=== PATIENT | female | born 1960 | race Caucasian/White ===

== ENCOUNTER 2020-02-04 14:19 | Emergency (ER) | payer BC ==
[2020-02-04] MEDS ORDERED: Sodium Chloride 0.9% 10 ML Syringe FLUSH PRN (14:57)
[2020-02-04] MEDS ORDERED: Albuterol/Ipratropium 3.0-0.5 MG/3 ML Neb Soln NEB ONE (14:58)
[2020-02-04] MEDS ORDERED: Sodium Chloride 0.9% 10 ML Syringe FLUSH ONE (15:05)
[2020-02-04] MEDS ORDERED: Iopamidol 755 Mg/ML 100 ML Bottle IVPUSH ONE (15:05)
[2020-02-04] MEDS ORDERED: Sodium Chloride 0.9% 100 ML IV SCH (15:15)
[2020-02-04] MEDS ORDERED: Sodium Chloride 0.9% 500 ML IV ONE (16:11)
[2020-02-04] MEDS ORDERED: LORazepam 2 MG/ML SDV IVPUSH ONE (16:12)
--- NOTE | 2020-02-04 17:06 | EDM.PDOC ---
ED HPI GENERAL MEDICAL PROBLEM - General Chief Complaint: ENT Problem Stated Complaint: DYSPHAGIA Time Seen by Provider: 02/04/20 14:45 Source of Information: Reports: Patient, Old Records History Limitations: Reports: No Limitations - History of Present Illness INITIAL COMMENTS - FREE TEXT/NARRATIVE: The patient presents for sore throat. She has a history of COPD on oxygen. She has congestion and post nasal drip with sinus pressure. She took a pill when she was coughing and it felt like it got stuck. She has a sore throat after that and chest pain and shortness of breath. She also is coughing. She has no fever or chills. She has anemia and she gets iron transfusions. She did come back from [place] 10 days ago and she was quarantining herself. She did get checked on the and she found out that she was COVID 19 negative. Onset: Gradual Duration: Day(s): Location: Reports: Chest, Other (throat) Quality: Reports: Sharp Severity: Moderate Improves with: Reports: None Worsens with: Reports: None Associated Symptoms: Reports: Chest Pain, Cough, Shortness of Breath. Denies: Fever/Chills, Headaches, Nausea/Vomiting Middle Chest Pain Score (Numeric/FACES): 10 - Related Data Allergies Allergy/AdvReac Type Severity Reaction Status Date / Time aspirin Allergy Cannot Verified 02/04/20 15:45 Remember codeine Allergy Change Verified 02/04/20 15:45 Mental Status latex Allergy Swelling Verified 02/04/20 15:45 levofloxacin [From Levaquin] Allergy Cannot Verified 02/04/20 15:45 Remember Penicillins Allergy Cannot Verified 02/04/20 15:45 Remember warfarin [From Coumadin] Allergy Hives Verified 02/04/20 15:45 Home Meds: Home Meds Albuterol Sulfate [Proair Digihaler] 90 mcg INH Q4HR PRN 02/04/20 [History] Ascorbate Calcium [Vitamin C] 500 mg PO TID 02/04/20 [History] Benzonatate 200 mg PO TID 02/04/20 [History] Budesonide [Pulmicort] 0.25 mg INH BID 02/04/20 [History] Cholecalciferol (Vitamin D3) [Vitamin D3] 5,000 units PO WEEKLY 02/04/20 [ History] Clopidogrel [Plavix] 75 mg PO DAILY 02/04/20 [History] Clorazepate [Clorazepate Dipotassium] 3.75 mg PO BID 02/04/20 [History] Docusate Sodium [Colace] 200 mg PO DAILY 02/04/20 [History] Doxycycline [Vibramycin] 100 mg PO BID #14 cap 02/04/20 [Rx] Dulaglutide [Trulicity] 1.5 mg SQ WEEKLY 02/04/20 [History] Ferrous Sulfate [Iron] 325 mg PO TID 02/04/20 [History] Fluticasone/Umeclidin/Vilanter [Trelegy Ellipta 100-62.5-25] 1 mcg INH DAILY 04/19 [History] Insulin Aspart [NovoLOG] 0 units SQ TID 02/04/20 [History] Insulin Glargine,Hum.Rec.Anlog [Toujeo Solostar] 0 units SQ BEDTIME 02/04/20 [ History] Montelukast [Singulair] 10 mg PO BEDTIME 02/04/20 [History] Cassatt-3/DHA/Epa/Fish Oil [Cassatt 3 500 Softgel] 1 gm PO DAILY 02/04/20 [History] Roflumilast [Daliresp] 500 mcg PO DAILY 02/04/20 [History] guaiFENesin [Mucinex] 600 mg PO BID 02/04/20 [History] metFORMIN [Glucophage XR] 500 mg PO BID 02/04/20 [History] predniSONE [Prednisone] 40 mg PO DAILY #10 tablet 02/04/20 [Rx] Past Medical History HEENT History: Reports: Impaired Vision Other HEENT History: jerry jerome Cardiovascular History: Reports: Blood Clots/VTE/DVT, High Cholesterol Respiratory History: Reports: Asthma, COPD, Pneumonia, Recurrent, SOB Gastrointestinal History: Reports: Colon Polyp, Other (See Below) Other Gastrointestinal History: blood in stool unsure of where bleeding is coming from. 16 polyps removed from colon Genitourinary History: Reports: Renal Calculus, UTI, Recurrent, Other (See Below ) Other Genitourinary History: Stent placed [employer] History: Reports: Psychiatric History: Reports: Anxiety Endocrine/Metabolic History: Reports: Diabetes, Type II, Vitamin D Deficiency Hematologic History: Reports: Iron Deficiency - Past Surgical History GI Surgical History: Reports: Polypectomy Female Surgical History: Reports: Hysterectomy, Ureteral Stent Social & Family History - Tobacco Use Smoking Status *Q: Former Smoker Used Tobacco, but Quit: Yes Month/Year Tobacco Last Used: 2004 - Caffeine Use Caffeine Use: Reports: Tea - Recreational Drug Use Recreational Drug Use: No ED ROS ENT - Review of Systems Review Of Systems: See Below Constitutional: Reports: No Symptoms HEENT: Reports: No Symptoms Respiratory: Reports: Shortness of Breath, Cough Cardiovascular: Reports: Chest Pain Endocrine: Reports: No Symptoms GI/Abdominal: Reports: No Symptoms : Reports: No Symptoms Musculoskeletal: Reports: No Symptoms Skin: Reports: No Symptoms ED EXAM, ENT - Physical Exam Exam: See Below Exam Limited By: No Limitations General Appearance: Alert, No Apparent Distress Ears: Normal External Exam Nose: Normal Inspection Mouth/Throat: Other (Mild erythema of the oropharynx) Head: Atraumatic, Normocephalic Neck: Normal Inspection Respiratory/Chest: No Respiratory Distress, Decreased Breath Sounds, Wheezing Cardiovascular: Regular Rate, Rhythm, No Edema, No Murmur GI/Abdominal: Soft, Non-Tender, No Organomegaly, No Mass Back: Normal Inspection Extremities: Normal Inspection EKG INTERPRETATION EKG Date: 02/04/20 Time: 15:35 Rhythm: Other (sinus tachycardia) Rate (Beats/Min): 143 [place]: Normal P-Wave: Present QRS: Normal ST-T: Depressed (ST rate dependent) QT: Normal Course - Vital Signs Last Recorded V/S: Last Vital Signs Temp 96.8 F L 02/04/20 14:51 Pulse 127 H 02/04/20 14:51 Resp 24 H 02/04/20 14:51 BP 162/79 H 02/04/20 14:51 Pulse Ox 92 L 02/04/20 14:58 - Orders/Labs/Meds Orders: Active Orders 24 hr Category Date Time Status Cardiac Monitoring [RC] . DIRECTED Care 02/04/20 14:57 Active EKG Documentation Completion [RC] STAT Care 02/04/20 14:57 Active Oxygen Therapy [RC] PRN Care 02/04/20 14:57 Active Peripheral IV Care [RC] . DIRECTED Care 02/04/20 14:57 Active RT Aerosol Therapy [RC] ASDIRECTED Care 02/04/20 14:58 Active Ang Chest [CT] Stat Exams 02/04/20 15:31 Taken Sodium Chloride 0.9% [Normal Saline] 100 ml Med 02/04/20 15:15 Active IV ASDIRECTED Sodium Chloride 0.9% [Saline Flush] Med 02/04/20 14:57 Active 10 ml FLUSH ASDIRECTED PRN Peripheral IV Insertion Adult [OM.PC] Stat Oth 02/04/20 14:57 Ordered Medication Orders Sodium Chloride (Normal Saline) 100 mls @ 60 mls/hr IV ASDIRECTED CHAGO Last Admin: 02/04/20 16:52 Dose: 60 mls/hr Sodium Chloride (Saline Flush) 10 ml FLUSH ASDIRECTED PRN PRN Reason: Keep Vein Open Labs: Laboratory Tests 02/04/20 02/04/20 Range/Units 15:40 15:40 WBC 11.03 H (3.98-10.04) K/mm3 RBC 5.20 (3.98-5.22) M/mm3 Hgb 12.9 (11.2-15.7) gm/dl Hct 41.1 (34.1-44.9) % MCV 79.0 L (79.4-94.8) fl MCH 24.8 L (25.6-32.2) pg MCHC 31.4 L (32.2-35.5) g/dl RDW Std Deviation 49.8 H (36.4-46.3) fL Plt Count 266 (182-369) K/mm3 MPV 10.0 (9.4-12.3) fl Neut % (Auto) 66.4 (34.0-71.1) % Lymph % (Auto) 26.4 (19.3-51.7) % [place] % (Auto) 5.6 (4.7-12.5) % Eos % (Auto) 0.8 (0.7-5.8) Baso % (Auto) 0.1 (0.1-1.2) % Neut # (Auto) 7.32 H (1.56-6.13) K/mm3 Lymph # (Auto) 2.91 (1.18-3.74) K/mm3 [place] # (Auto) 0.62 H (0.24-0.36) K/mm3 Eos # (Auto) 0.09 (0.04-0.36) K/mm3 Baso # (Auto) 0.01 (0.01-0.08) K/mm3 Manual Slide Review Normal smear Sodium 144 (136-145) mEq/L Potassium 4.2 (3.5-5.1) mEq/L Chloride 105 (98-107) mEq/L Carbon Dioxide 29 (21-32) mEq/L Anion Gap 14.2 (5-15) BUN 11 (7-18) mg/dL Creatinine 0.8 (0.55-1.02) mg/dL Est Cr Clr Drug Dosing 58.41 mL/min Estimated GFR (MDRD) > 60 (>60) mL/min BUN/Creatinine Ratio 13.8 L (14-18) Glucose 77 L (80-115) mg/dL Calcium 10.3 H (8.5-10.1) mg/dL Total Bilirubin 0.6 (0.2-1.0) mg/dL AST 21 (15-37) U/L ALT 36 (14-59) U/L Alkaline Phosphatase 126 H (46-116) U/L Troponin I < 0.017 (0.00-0.056) ng/mL Total Protein 8.4 H (6.4-8.2) g/dl Albumin 4.2 (3.4-5.0) g/dl Globulin 4.2 gm/dL Albumin/Globulin Ratio 1.0 (1-2) Meds: Medications Generic Name Dose Route Start Last Admin Trade Name Freq PRN Reason Stop Dose Admin Sodium Chloride 100 mls @ 60 mls/hr 02/04/20 15:15 02/04/20 16:52 Normal Saline IV 60 mls/hr ASDIRECTED CHAGO Administration Sodium Chloride 10 ml 02/04/20 14:57 Saline Flush FLUSH ASDIRECTED PRN Keep Vein Open Discontinued Medications Generic Name Dose Route Start Last Admin Trade Name Freq PRN Reason Stop Dose Admin Albuterol/Ipratropium 3 ml 02/04/20 14:58 02/04/20 15:48 Duoneb 3.0-0.5 Mg/3 Ml NEB 02/04/20 14:59 3 ml ONETIME ONE Administration Sodium Chloride 500 mls @ 1,000 mls/hr 02/04/20 16:11 02/04/20 16:40 Normal Saline IV 02/04/20 16:40 1,000 mls/hr .BOLUS ONE Administration Iopamidol 100 ml 02/04/20 15:05 02/04/20 16:52 Isovue-370 (76%) IVPUSH 02/04/20 15:06 100 ml ONETIME ONE Administration Lorazepam 0.5 mg 02/04/20 16:12 02/04/20 16:38 Ativan IVPUSH 02/04/20 16:13 0.5 mg ONETIME ONE Administration Sodium Chloride 10 ml 02/04/20 15:05 02/04/20 16:52 Saline Flush FLUSH 02/04/20 15:06 10 ml ONETIME ONE Administration - Re-Assessments/Exams Free Text/Narrative Re-Assessment/Exam: 02/04/20 17:09 I ordered oxygen, IV NS 500ml bolus, albuterol 2 puffs, EKG, labs and a CT of her chest. Her EKG shows a sinus tachycardia with no acute changes. 02/04/20 17:41 Her WBC was slightly elevated at 11.03. Her glucose was 77. Her alk phos was 126. Her troponin is negative. Her CT of her chest shows no acute or active chest CT pathology. No pulmonary emboli. Mild centrilobar emphysema. Mild chronic interstitial lung disease, nonspecific. Left ventricular hypertrophy. Nonspecific pericardial thickening. 02/04/20 17:53 She has sinusitis and COPD exacerbation. I will get her on some doxycycline and prednisone. Departure - Departure Time of Disposition: 18:00 Disposition: Home, Self-Care 01 Condition: Good Clinical Impression: COPD exacerbation Sinusitis Qualifiers: Sinusitis location: unspecified location Chronicity: acute Recurrence: non- recurrent Qualified Code(s): J01.90 - Acute sinusitis, unspecified - Discharge Information *PRESCRIPTION DRUG MONITORING PROGRAM REVIEWED*: Not Applicable *COPY OF PRESCRIPTION DRUG MONITORING REPORT IN PATIENT CELY: Not Applicable Prescriptions: Doxycycline [Vibramycin] 100 mg PO BID #14 cap predniSONE [Prednisone] 40 mg PO DAILY #10 tablet Referrals: Silvia Feliciano NP [Primary Care Provider] - 3 Days Forms: ED Department Discharge Additional Instructions: Take your medications as prescribed. Take doxycycline 1 pill 2 times per day for 7 days. Take the prednisone 40mg daily for 5 days. Follow up with Silvia in 2 to 3 days. Please return if you are worse. Sepsis Event Note - Evaluation Sepsis Screening Result: No Definite Risk - Focused Exam Vital Signs: Vital Signs Temp Pulse Resp BP Pulse Ox Pulse Ox 02/04/20 14:58 92 L 02/04/20 14:51 96.8 F L 127 H 24 H 162/79 H 94 L Date Exam was Performed: 02/04/20 Time Exam was Performed: 17:53 - My Orders Last 24 Hours: My Active Orders 02/04/20 14:57 Cardiac Monitoring [RC] . DIRECTED EKG Documentation Completion [RC] STAT Oxygen Therapy [RC] PRN Peripheral IV Care [RC] . DIRECTED Sodium Chloride 0.9% [Saline Flush] 10 ml FLUSH ASDIRECTED PRN Peripheral IV Insertion Adult [OM.PC] Stat 02/04/20 14:58 RT Aerosol Therapy [RC] ASDIRECTED 02/04/20 15:15 Sodium Chloride 0.9% [Normal Saline] 100 ml IV ASDIRECTED 02/04/20 15:31 Ang Chest [CT] Stat - Assessment/Plan Last 24 Hours: My Active Orders 02/04/20 14:57 Cardiac Monitoring [RC] . DIRECTED EKG Documentation Completion [RC] STAT Oxygen Therapy [RC] PRN Peripheral IV Care [RC] . DIRECTED Sodium Chloride 0.9% [Saline Flush] 10 ml FLUSH ASDIRECTED PRN Peripheral IV Insertion Adult [OM.PC] Stat 02/04/20 14:58 RT Aerosol Therapy [RC] ASDIRECTED 02/04/20 15:15 Sodium Chloride 0.9% [Normal Saline] 100 ml IV ASDIRECTED 02/04/20 15:31 Ang Chest [CT] Stat
[2020-02-04] MEDS ORDERED: Doxycycline 100 MG Cap PO ONE (17:57)
[2020-02-04] MEDS ORDERED: predniSONE 20 MG Tab PO ONE (17:57)
--- NOTE | 2020-02-05 08:36 | CT ---
CT chest Technique: Multiple axial sections were obtained from above the dome of the diaphragm inferiorly through the pubic symphysis. Intravenous contrast was utilized. Study has been performed as a pulmonary angiogram protocol. Findings: Pulmonary arteries are well opacified. No filling defects are seen to indicate pulmonary embolism. Aorta shows atherosclerotic change without aneurysm. Small lymph nodes are scattered within the mediastinum believed to be within normal limits. No axillary adenopathy is identified. Calcified lymph node is noted within the right hilar region. Lungs show no acute parenchymal change. Mild diffuse emphysematous changes are present. Focal parenchymal density within the lingula is noted most likely representing an area of scarring. Bone window settings were reviewed which shows slight degenerative spurring within the spine. No acute osseous finding is seen. Impression: 1. No findings of pulmonary embolism. 2. Emphysematous change. 3. Focal scar within the lingula. Diagnostic code #3 This report was dictated in MDT I agree with preliminary report from [facility], finalized on 02/04/20, 6:09 PM Central Time
== END 2020-02-04 18:30 | disposition home or self-care (01) ==
LOC: JD.ED 14:19
DX: J44.1 Chronic obstructive pulmonary disease with (acute) exacerbation (principal); J01.90 Acute sinusitis, unspecified; E78.00 Pure hypercholesterolemia, unspecified; J45.909 Unspecified asthma, uncomplicated; E11.9 Type 2 diabetes mellitus without complications; F41.9 Anxiety disorder, unspecified; Z79.02 Long term (current) use of antithrombotics/antiplatelets; Z79.4 Long term (current) use of insulin; Z79.899 Other long term (current) drug therapy; Z91.040 Latex allergy status; Z88.5 Allergy status to narcotic agent; Z88.0 Allergy status to penicillin; Z88.8 Allergy status to other drugs, medicaments and biological substances; Z87.891 Personal history of nicotine dependence
CPT/HCPCS: 36415; 71275; 80053; 84484; 85025; 93005; 94640; 94762; 96361; 96374; 99284; A9270; J2060; J7030; J7050; Q9967; 93010; J7620-GY

== ENCOUNTER 2021-10-22 06:28 | Inpatient (IN) | payer BC ==
[2021-10-22] MEDS ORDERED: Albuterol/Ipratropium 3.0-0.5 MG/3 ML Neb Soln NEB ONE (06:45)
[2021-10-22] MEDS ORDERED: Sodium Chloride 0.9% 10 ML Syringe FLUSH PRN ×2 (06:45→08:23)
[2021-10-22] MEDS ORDERED: Magnesium Sulfate/Water 2 GM in Premix Bag 1 BAG IV ONE (07:08)
[2021-10-22] MEDS ORDERED: methylPREDNISolone Sodium Succinate 125 MG/2 ML SDV IVPUSH ONE (07:08)
[2021-10-22] MEDS ORDERED: Albuterol 0.083% 2.5 MG/3 ML Neb Soln ONE (07:13)
[2021-10-22] MEDS ORDERED: Levofloxacin/Dextrose 5%-Water 750 MG in Premix Bag 1 BAG IV ONE (07:13)
[2021-10-22] MEDS ORDERED: Sodium Chloride 0.9% 500 ML IV ONE (07:14)
--- NOTE | 2021-10-22 07:18 | EDM.PDOC ---
ED HPI GENERAL MEDICAL PROBLEM - General Chief Complaint: Respiratory Problem Stated Complaint: sob Time Seen by Provider: 10/22/21 07:05 Source of Information: Reports: Patient, Family History Limitations: Reports: No Limitations - History of Present Illness INITIAL COMMENTS - FREE TEXT/NARRATIVE: Patient is a 61-year-old female with a complaint of not being able to breathe. Patient has a past medical history of COPD and is on home oxygen for the past 14 years. Patient is present with who provides majority of history. According to the , patient had similar symptoms about 4 months ago and was treated as an outpatient with steroids. She did seem to respond to this. However, on Tuesday the patient started to become sick again. Demonstrating significant dyspnea and cough. Patient went to the doctor on Tuesday and was prescribed prednisone. However, patient continued to worsen and she came in this morning with significant respiratory distress. She otherwise denies pain and fevers. No recent hospitalizations. Albuterol inhalers seem to provide only moderate relief. Back Pain Score (Numeric/FACES): 9 - Related Data Allergies Allergy/AdvReac Type Severity Reaction Status Date / Time aspirin Allergy Severe Cannot Verified 10/22/21 17:24 Remember codeine Allergy Severe Change Verified 10/22/21 17:24 Mental Status latex Allergy Severe Swelling Verified 10/22/21 17:24 levofloxacin [From Levaquin] Allergy Severe Cannot Verified 10/22/21 17:24 Remember Penicillins Allergy Severe Cannot Verified 10/22/21 17:24 Remember warfarin [From Coumadin] Allergy Severe Hives Verified 10/22/21 17:24 Home Meds: Home Meds Albuterol Sulfate [Proair Digihaler] 90 mcg INH Q4HR PRN 02/04/20 [History] Ascorbate Calcium [Vitamin C] 500 mg PO TID 02/04/20 [History] Budesonide [Pulmicort] 1 dose INH TID 02/04/20 [History] Clopidogrel [Plavix] 75 mg PO DAILY 02/04/20 [History] Clorazepate [Clorazepate Dipotassium] 3.75 mg PO BID 02/04/20 [History] Docusate Sodium [Colace] 200 mg PO DAILY 02/04/20 [History] Dulaglutide [Trulicity] 1.5 mg SQ WEEKLY 02/04/20 [History] Ferrous Sulfate [Iron] 325 mg PO TID 02/04/20 [History] Fluticasone/Umeclidin/Vilanter [Trelegy Ellipta 100-62.5-25] 1 puff INH DAILY 02/04/20 [History] Insulin Aspart [NovoLOG] 14 - 22 units SQ TID 02/04/20 [History] Insulin Glargine,Hum.Rec.Anlog [Toujeo Solostar] 90 units SQ BEDTIME 02/04/20 [History] Montelukast [Singulair] 10 mg PO BEDTIME 02/04/20 [History] [place]-3/DHA/Epa/Fish Oil [[place] 3 500 Softgel] 1 gm PO DAILY 02/04/20 [History] Roflumilast [Daliresp] 500 mcg PO DAILY 02/04/20 [History] guaiFENesin [Mucinex] 600 mg PO BID 02/04/20 [History] metFORMIN [Glucophage XR] 500 mg PO BID 02/04/20 [History] predniSONE [Prednisone] 40 mg PO DAILY #10 tablet 02/04/20 [Rx] ALPRAZolam [Alprazolam] 0.5 mg PO DAILY PRN 10/22/21 [History] Albuterol/Ipratropium [DuoNeb 3.0-0.5 MG/3 ML] 31 unit INH Q8H 10/22/21 [History] Cetirizine HCl [Zyrtec] 10 mg PO DAILY 10/22/21 [History] Famotidine 20 mg PO BID 10/22/21 [History] Furosemide [Lasix] 20 mg PO DAILY 10/22/21 [History] Potassium Chloride [Klor-Con 10] 10 meq PO DAILY 10/22/21 [History] Vitamin D3-50. 50,000 units PO ASDIRECTED 10/22/21 [History] atorvaSTATin [Lipitor] 40 mg PO BEDTIME 10/22/21 [History] Past Medical History HEENT History: Reports: Impaired Vision Other HEENT History: jerry jerome Cardiovascular History: Reports: Blood Clots/VTE/DVT, High Cholesterol Respiratory History: Reports: Asthma, COPD, Pneumonia, Recurrent, SOB Gastrointestinal History: Reports: Colon Polyp, Other (See Below) Other Gastrointestinal History: blood in stool unsure of where bleeding is coming from. 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 seeing MD for it. - Past Surgical History GI Surgical History: Reports: Polypectomy Female Surgical History: Reports: Hysterectomy, Ureteral Stent Social & Family History - Tobacco Use Tobacco Use Status *Q: Former Tobacco User Used Tobacco, but Quit: Yes Month/Year Tobacco Last Used: 1999 - Caffeine Use Caffeine Use: Reports: Tea - Recreational Drug Use Recreational Drug Use: No ED ROS GENERAL - Review of Systems Review Of Systems: Unable To Obtain Reason Not Obtained: Respiratory distress ED EXAM, GENERAL - Physical Exam Exam: See Below Free Text/Narrative:: I have reviewed the triage vital signs Const: Patient is in respiratory distress. Unable to sit still looks extremely uncomfortable. But is awake and talking. Well nourished, well developed, appears stated age Eyes: Pupils Equal and reactive to light bilaterally, no conjunctival injection HENT: No signs of trauma or swelling, Neck supple without meningismus CV: Tachycardia with regular rhythm., Warm, well-perfused extremities RESP: Diffuse bilateral wheezing. Patient using accessory muscles to breathe. Able to speak in short several word sentences. GI: soft, non-tender, non-distended, no masses MSK: No gross deformities appreciated Skin: Warm, dry. No rashes Neuro: Alert, photo retoucher II-XII grossly intact. Sensation and motor function of extremities grossly intact. Psych: Apparently anxious. Course - Vital Signs Last Recorded V/S: Last Vital Signs Temp 35.9 C L 10/22/21 17:39 Pulse 113 H 10/22/21 17:39 Resp 22 H 10/22/21 17:39 BP 141/65 H 10/22/21 17:39 Pulse Ox 95 10/22/21 17:39 - Orders/Labs/Meds Orders: Active Orders 24 hr Category Date Time Status Patient Status [ADT] Routine ADT 10/22/21 13:34 Active BIPAP Adult [RT BiPAP/CPAP] [RC] ASDIRECTED Care 10/22/21 07:10 Active Blood Glucose Check, Bedside [RC] QIDACANDBED Care 10/22/21 14:04 Active Cardiac Monitoring [RC] CONTINUOUS Care 10/22/21 13:48 Active Height and Weight [RC] 0400 Care 10/22/21 13:47 Active Intake and Output [RC] 04,16 Care 10/22/21 13:48 Active Oxygen Therapy [RC] ASDIRECTED Care 10/22/21 13:47 Active Peripheral IV Care [RC] . DIRECTED Care 10/22/21 06:50 Active Pulse Oximetry [RC] CONTINUOUS Care 10/22/21 13:48 Active RT Aerosol Therapy [RC] ASDIRECTED Care 10/22/21 13:55 Active RT Chest Physiotherapy [RC] ASDIRECTED Care 10/22/21 13:47 Active RT Incentive Spirometry [RC] ASDIRECTED Care 10/22/21 13:47 Active Up With Assistance [RC] ASDIRECTED Care 10/22/21 13:47 Active Vital Signs [RC] Q4H Care 10/22/21 13:47 Active Consult to Case Management/Bearing Ring Assembler [CONS] Cons 10/22/21 13:47 Active Routine OT Evaluation and Treatment [CONS] Routine Cons 10/22/21 13:50 Active PT Evaluation and Treatment [CONS] Routine Cons 10/22/21 13:50 Active Respiratory Care Assess and Treatment [CONS] Routine Cons 10/22/21 13:50 Active Consistent Carbohydrate Diet [DIET] Diet 10/22/21 Lunch Active BLOOD CULTURE [MREF] Stat Lab 10/22/21 07:15 Received BLOOD CULTURE [MREF] Stat Lab 10/22/21 07:20 Received C-REACTIVE PROTEIN [CHEM] AM Lab 10/23/21 05:11 Ordered C-REACTIVE PROTEIN [CHEM] AM Lab 10/24/21 05:11 Ordered C-REACTIVE PROTEIN [CHEM] AM Lab 10/25/21 05:11 Ordered C-REACTIVE PROTEIN [CHEM] AM Lab 10/26/21 05:11 Ordered CBC WITH AUTO DIFF [HEME] AM Lab 10/23/21 05:11 Ordered CBC WITH AUTO DIFF [HEME] AM Lab 10/24/21 05:11 Ordered CBC WITH AUTO DIFF [HEME] AM Lab 10/25/21 05:11 Ordered CBC WITH AUTO DIFF [HEME] AM Lab 10/26/21 05:11 Ordered COMPREHENSIVE METABOLIC PN,CMP [CHEM] AM Lab 10/23/21 05:11 Ordered COMPREHENSIVE METABOLIC PN,CMP [CHEM] AM Lab 10/24/21 05:11 Ordered COMPREHENSIVE METABOLIC PN,CMP [CHEM] AM Lab 10/25/21 05:11 Ordered COMPREHENSIVE METABOLIC PN,CMP [CHEM] AM Lab 10/26/21 05:11 Ordered MAGNESIUM [CHEM] AM Lab 10/23/21 05:11 Ordered MAGNESIUM [CHEM] AM Lab 10/24/21 05:11 Ordered MAGNESIUM [CHEM] AM Lab 10/25/21 05:11 Ordered MAGNESIUM [CHEM] AM Lab 10/26/21 05:11 Ordered METH-RESIST S.AUR,MRSA BY PCR [MOLEC] Routine Lab 10/22/21 16:50 Received PROCALCITONIN [REF] Routine Lab 10/22/21 07:20 Received RESPIRATORY PANEL Routine Lab 10/22/21 13:44 Ordered STREP PNEUMONIAE ANTIGEN [MREF] Routine Lab 10/22/21 13:46 Ordered UA W/MICROSCOPIC [URIN] Routine Lab 10/22/21 14:44 Ordered Acetaminophen [TylenoL] Med 10/22/21 13:47 Active 650 mg PO Q4H PRN Albuterol [Proventil Neb Soln] Med 10/22/21 13:47 Active 2.5 mg NEB Q2H PRN Albuterol/Ipratropium [DuoNeb 3.0-0.5 MG/3 ML] Med 10/22/21 16:00 Active 3 ml NEB QIDRT Ascorbic Acid [Vitamin C] Med 10/22/21 15:00 Active 500 mg PO TID Azithromycin [Zithromax] 500 mg Med 10/23/21 09:30 Active Sodium Chloride 0.9% [Normal Saline AdvBag] 250 ml IV Q24H Budesonide [Pulmicort] Med 10/22/21 16:00 Active 0.5 mg INH TID@0600,1600,2100 Cetirizine [ZyrTEC] Med 10/23/21 09:00 Active 10 mg PO DAILY Clopidogrel [Plavix] Med 10/23/21 09:00 Active 75 mg PO DAILY Docusate Sodium [Colace] Med 10/23/21 09:00 Active 200 mg PO DAILY Famotidine [Pepcid] Med 10/22/21 21:00 Pending 20 mg PO BID Ferrous Sulfate Med 10/22/21 15:00 Active 324 mg PO TID Furosemide [Lasix] Med 10/23/21 09:00 Active 20 mg PO DAILY Insulin Lispro [HumaLOG] Med 10/22/21 17:30 Active See Protocol SUBCUT WITHMEALSANDBED Magnesium Hydroxide [Milk of Magnesia] Med 10/22/21 14:45 Active 30 ml PO Q12H PRN Montelukast [Singulair] Med 10/22/21 21:00 Active 10 mg PO BEDTIME Ondansetron [Zofran] Med 10/22/21 13:47 Active 4 mg IV Q6H PRN Patient's Own Medication [Ptom] Med 10/23/21 10:00 Active 0 each INH 1000 Patient's Own Medication [Ptom] Med 10/22/21 21:00 Active 0 each PO BID Patient's Own Medication [Ptom] Med 10/23/21 09:00 Active 0 each PO DAILY Potassium Chloride [Klor-Con 10] Med 10/23/21 09:00 Active 10 meq PO DAILY Sodium Chloride 0.9% [Normal Saline] 100 ml Med 10/22/21 08:30 Active IV ASDIRECTED Sodium Chloride 0.9% [Saline Flush] Med 10/22/21 06:45 Active 10 ml FLUSH ASDIRECTED PRN Sodium Chloride 0.9% [Saline Flush] Med 10/22/21 08:23 Active 10 ml FLUSH ONETIME PRN atorvaSTATin [Lipitor] Med 10/22/21 21:00 Active 40 mg PO BEDTIME cefTRIAXone [Rocephin] 2 gm Med 10/23/21 09:00 Active Sodium Chloride 0.9% [Normal Saline AdvBag] 100 ml IV Q24H guaiFENesin [Mucinex] Med 10/22/21 21:00 Active 600 mg PO BID methylPREDNISolone Sod Succ [Solu-MEDROL] Med 10/23/21 09:00 Active 60 mg IVPUSH DAILY Blood Culture x2 Reflex Set [OM.PC] Stat Oth 10/22/21 06:49 Ordered Isolation [COMM] Routine Oth 10/22/21 13:45 Ordered Peripheral IV Insertion Adult [OM.PC] Stat Oth 10/22/21 06:50 Ordered Medication Orders Acetaminophen (Acetaminophen 325 Mg Tab) 650 mg PO Q4H PRN PRN Reason: Pain (Mild 1-3)/fever Albuterol (Albuterol 0.083% 2.5 Mg/3 Ml Neb Soln) 2.5 mg NEB Q2H PRN PRN Reason: Shortness Of Breath/wheezing Albuterol/Ipratropium (Albuterol/Ipratropium 3.0-0.5 Mg/3 Ml Neb Soln) 3 ml NEB QIDRT [facility] Last Admin: 10/22/21 15:30 Dose: 3 ml Documented by: PRAULES Ascorbic Acid (Ascorbic Acid 500 Mg Tab) 500 mg PO TID [facility] Atorvastatin Calcium (Atorvastatin 40 Mg Tab) 40 mg PO BEDTIME [facility] Budesonide (Budesonide 0.5 Mg/2 Ml Neb Susp) 0.5 mg INH TID@0600,1600,2100 [facility] Last Admin: 10/22/21 15:31 Dose: 0.5 mg Documented by: PRAULES Cetirizine HCl (Cetirizine 10 Mg Tab) 10 mg PO DAILY [facility] Clopidogrel Bisulfate (Clopidogrel 75 Mg Tab) 75 mg PO DAILY [facility] Docusate Sodium (Docusate Sodium 100 Mg Cap) 200 mg PO DAILY [facility] Famotidine (Famotidine 20 Mg Tab) 20 mg PO BID [facility] Ferrous Sulfate (Ferrous Sulfate 324 Mg Tab.Ec) 324 mg PO TID [facility] Furosemide (Furosemide 20 Mg Tab) 20 mg PO DAILY [facility] Guaifenesin (Guaifenesin 600 Mg Tab.Er) 600 mg PO BID [facility] Sodium Chloride (Normal Saline) 100 mls @ 75 mls/hr IV ASDIRECTED [facility] Last Admin: 10/22/21 08:42 Dose: 75 mls/hr Documented by: NEFTALI Azithromycin 500 mg/ Sodium (Chloride) 250 mls @ 250 mls/hr IV Q24H [facility] Ceftriaxone Sodium 2 gm/ (Sodium Chloride) 100 mls @ 200 mls/hr IV Q24H [facility] Insulin Glargine (Insulin Glarg,Human.Rec.Analog 100 Unit/Ml) 72 unit SUBCUT BEDTIME [facility] Insulin Human Lispro (Insulin Lispro 100 Unit/Ml 3 Ml Kwikpen) 0 unit SUBCUT WITHMEALSANDBED [facility]; Protocol Magnesium Hydroxide (Magnesium Hydroxide 400 Mg/5 Ml Susp 30 Ml Cup) 30 ml PO Q12H PRN PRN Reason: Constipation Methylprednisolone Sodium Succinate (Methylprednisolone Sodium Succinate 40 Mg/1 Ml Sdv) 60 mg IVPUSH DAILY [facility] Montelukast Sodium (Montelukast 10 Mg Tab) 10 mg PO BEDTIME [facility] Ondansetron HCl (Ondansetron 4 Mg/2 Ml Sdv) 4 mg IV Q6H PRN PRN Reason: Nausea/Vomiting Clorazepate 3.75 Mg (Tablet) 0 each PO BID [facility] Roflumilast [ Daliresp] 500 Mcg Tablet 0 each PO DAILY [facility] Fluticasone/Umeclidin/Vilanter 1 Each Blst.W.Dev 0 each INH 1000 [facility] Potassium Chloride (Potassium Chloride 10 Meq Tab.Er) 10 meq PO DAILY [facility] Sodium Chloride (Sodium Chloride 0.9% 10 Ml Syringe) 10 ml FLUSH ASDIRECTED PRN PRN Reason: Keep Vein Open Last Admin: 10/22/21 06:52 Dose: 10 ml Documented by: EVIE Sodium Chloride (Sodium Chloride 0.9% 10 Ml Syringe) 10 ml FLUSH ONETIME PRN PRN Reason: IV FLUSH Last Admin: 10/22/21 08:43 Dose: 10 ml Documented by: NEFTALI Labs: Laboratory Tests 10/22/21 10/22/21 10/22/21 Range/Units 06:40 06:56 07:20 WBC 8.18 (3.98-10.04) K/mm3 RBC 4.65 (3.98-5.22) M/mm3 Hgb 12.2 (11.2-15.7) gm/dl Hct 39.8 (34.1-44.9) % MCV 85.6 D (79.4-94.8) fl MCH 26.2 (25.6-32.2) pg MCHC 30.7 L (32.2-35.5) g/dl RDW Std Deviation 46.1 (36.4-46.3) fL Plt Count 281 (182-369) K/mm3 MPV 9.9 (9.4-12.3) fl Neutrophils % (Manual) 59 (40-60) % Band Neutrophils % 0 (0-10) % Lymphocytes % (Manual) 32 (20-40) % Atypical Lymphs % 0 % Monocytes % (Manual) 9 (2-10) % Eosinophils % (Manual) 0 L (0.7-5.8) % Basophils % (Manual) 0 L (0.1-1.2) Platelet Estimate Adequate RBC Morph Comment Normal D-Dimer, Quantitative (0.19-0.50) mg/L Puncture Site Rt radial ABG pH 7.35 (7.35-7.45) ABG pCO2 51.7 H (35.0-45.0) mmHg ABG pO2 46.0 L (80.0-100.0) mmHg ABG HCO3 28.1 H (22.0-26.0) meq/L ABG O2 Saturation 82.9 L (96.0-97.0) % ABG Base Excess 2.3 H (-2-2.0) Adalid Test Positive A-a Gradient 89 mmHg O2 Delivery Device Nasal cannula Oxygen Flow Rate 2.0 FiO2 28.00 (21.00-100.00) % Sodium (136-145) mEq/L Potassium (3.5-5.1) mEq/L Chloride (98-107) mEq/L Carbon Dioxide (21-32) mEq/L Anion Gap (5-15) BUN (7-18) mg/dL Creatinine (0.55-1.02) mg/dL Est Cr Clr Drug Dosing mL/min Estimated GFR (MDRD) (>60) mL/min BUN/Creatinine Ratio (14-18) Glucose (70-99) mg/dL POC Glucose (70-99) mg/dL Lactic Acid (0.4-2.0) mmol/L Calcium (8.5-10.1) mg/dL Total Bilirubin (0.2-1.0) mg/dL AST (15-37) U/L ALT (14-59) U/L Alkaline Phosphatase (46-116) U/L Troponin I (0.00-0.056) ng/mL C-Reactive Protein (<1.0) mg/dL NT-Pro-B Natriuret Pep (0-125) pg/mL Total Protein (6.4-8.2) g/dl Albumin (3.4-5.0) g/dl Globulin gm/dL Albumin/Globulin Ratio (1-2) Influenza Type A RNA Negative (NEGATIVE) Influenza Type B RNA Negative (NEGATIVE) Mycoplasma pneumon IgM (NEGATIVE) SARS-CoV-2 RNA (DAVIDSON) Negative (NEGATIVE) 10/22/21 10/22/21 10/22/21 Range/Units 07:20 07:20 07:20 WBC (3.98-10.04) K/mm3 RBC (3.98-5.22) M/mm3 Hgb (11.2-15.7) gm/dl Hct (34.1-44.9) % MCV (79.4-94.8) fl MCH (25.6-32.2) pg MCHC (32.2-35.5) g/dl RDW Std Deviation (36.4-46.3) fL Plt Count (182-369) K/mm3 MPV (9.4-12.3) fl Neutrophils % (Manual) (40-60) % Band Neutrophils % (0-10) % Lymphocytes % (Manual) (20-40) % Atypical Lymphs % % Monocytes % (Manual) (2-10) % Eosinophils % (Manual) (0.7-5.8) % Basophils % (Manual) (0.1-1.2) Platelet Estimate RBC Morph Comment D-Dimer, Quantitative 0.98 H (0.19-0.50) mg/L Puncture Site ABG pH (7.35-7.45) ABG pCO2 (35.0-45.0) mmHg ABG pO2 (80.0-100.0) mmHg ABG HCO3 (22.0-26.0) meq/L ABG O2 Saturation (96.0-97.0) % ABG Base Excess (-2-2.0) Adalid Test A-a Gradient mmHg O2 Delivery Device Oxygen Flow Rate FiO2 (21.00-100.00) % Sodium 140 (136-145) mEq/L Potassium 3.7 (3.5-5.1) mEq/L Chloride 99 (98-107) mEq/L Carbon Dioxide 32 (21-32) mEq/L Anion Gap 12.7 (5-15) BUN 21 H (7-18) mg/dL Creatinine 1.0 (0.55-1.02) mg/dL Est Cr Clr Drug Dosing 45.54 mL/min Estimated GFR (MDRD) 56 (>60) mL/min BUN/Creatinine Ratio 21.0 H (14-18) Glucose 126 H (70-99) mg/dL POC Glucose (70-99) mg/dL Lactic Acid (0.4-2.0) mmol/L Calcium 10.1 (8.5-10.1) mg/dL Total Bilirubin 0.6 (0.2-1.0) mg/dL AST 21 (15-37) U/L ALT 30 (14-59) U/L Alkaline Phosphatase 79 (46-116) U/L Troponin I < 0.017 (0.00-0.056) ng/mL C-Reactive Protein 9.2 H* (<1.0) mg/dL NT-Pro-B Natriuret Pep 121 (0-125) pg/mL Total Protein 8.0 (6.4-8.2) g/dl Albumin 3.6 (3.4-5.0) g/dl Globulin 4.4 gm/dL Albumin/Globulin Ratio 0.8 L (1-2) Influenza Type A RNA (NEGATIVE) Influenza Type B RNA (NEGATIVE) Mycoplasma pneumon IgM (NEGATIVE) SARS-CoV-2 RNA (DAVIDSON) (NEGATIVE) 10/22/21 10/22/21 10/22/21 Range/Units 07:20 07:20 13:58 WBC (3.98-10.04) K/mm3 RBC (3.98-5.22) M/mm3 Hgb (11.2-15.7) gm/dl Hct (34.1-44.9) % MCV (79.4-94.8) fl MCH (25.6-32.2) pg MCHC (32.2-35.5) g/dl RDW Std Deviation (36.4-46.3) fL Plt Count (182-369) K/mm3 MPV (9.4-12.3) fl Neutrophils % (Manual) (40-60) % Band Neutrophils % (0-10) % Lymphocytes % (Manual) (20-40) % Atypical Lymphs % % Monocytes % (Manual) (2-10) % Eosinophils % (Manual) (0.7-5.8) % Basophils % (Manual) (0.1-1.2) Platelet Estimate RBC Morph Comment D-Dimer, Quantitative (0.19-0.50) mg/L Puncture Site ABG pH (7.35-7.45) ABG pCO2 (35.0-45.0) mmHg ABG pO2 (80.0-100.0) mmHg ABG HCO3 (22.0-26.0) meq/L ABG O2 Saturation (96.0-97.0) % ABG Base Excess (-2-2.0) Adalid Test A-a Gradient mmHg O2 Delivery Device Oxygen Flow Rate FiO2 (21.00-100.00) % Sodium (136-145) mEq/L Potassium (3.5-5.1) mEq/L Chloride (98-107) mEq/L Carbon Dioxide (21-32) mEq/L Anion Gap (5-15) BUN (7-18) mg/dL Creatinine (0.55-1.02) mg/dL Est Cr Clr Drug Dosing mL/min Estimated GFR (MDRD) (>60) mL/min BUN/Creatinine Ratio (14-18) Glucose (70-99) mg/dL POC Glucose 185 H (70-99) mg/dL Lactic Acid 1.2 (0.4-2.0) mmol/L Calcium (8.5-10.1) mg/dL Total Bilirubin (0.2-1.0) mg/dL AST (15-37) U/L ALT (14-59) U/L Alkaline Phosphatase (46-116) U/L Troponin I (0.00-0.056) ng/mL C-Reactive Protein (<1.0) mg/dL NT-Pro-B Natriuret Pep (0-125) pg/mL Total Protein (6.4-8.2) g/dl Albumin (3.4-5.0) g/dl Globulin gm/dL Albumin/Globulin Ratio (1-2) Influenza Type A RNA (NEGATIVE) Influenza Type B RNA (NEGATIVE) Mycoplasma pneumon IgM Negative (NEGATIVE) SARS-CoV-2 RNA ([facility]VID[facility]) (NEGATIVE) Meds: Medications Generic Name Dose Route Start Last Admin Trade Name Freq PRN Reason Stop Dose Admin Acetaminophen 650 mg 10/22/21 13:47 Acetaminophen 325 Mg Tab PO Q4H PRN Pain (Mild 1-3)/fever Albuterol 2.5 mg 10/22/21 13:47 Albuterol 0.083% 2.5 Mg/3 Ml Neb Soln NEB Q2H PRN Shortness Of Breath/wheezing Albuterol/Ipratropium 3 ml 10/22/21 16:00 10/22/21 15:30 Albuterol/Ipratropium 3.0-0.5 Mg/3 Ml Neb Soln NEB 3 ml QIDRT [facility] Administration Ascorbic Acid 500 mg 10/22/21 15:00 Ascorbic Acid 500 Mg Tab PO TID [facility] Atorvastatin Calcium 40 mg 10/22/21 21:00 Atorvastatin 40 Mg Tab PO BEDTIME [facility] Budesonide 0.5 mg 10/22/21 16:00 10/22/21 15:31 Budesonide 0.5 Mg/2 Ml Neb Susp INH 0.5 mg TID@0600,1600,2100 [facility] Administration Cetirizine HCl 10 mg 10/23/21 09:00 Cetirizine 10 Mg Tab PO DAILY [facility] Clopidogrel Bisulfate 75 mg 10/23/21 09:00 Clopidogrel 75 Mg Tab PO DAILY [facility] Docusate Sodium 200 mg 10/23/21 09:00 Docusate Sodium 100 Mg Cap PO DAILY [facility] Famotidine 20 mg 10/22/21 21:00 Famotidine 20 Mg Tab PO BID [facility] Ferrous Sulfate 324 mg 10/22/21 15:00 Ferrous Sulfate 324 Mg Tab.Ec PO TID [facility] Furosemide 20 mg 10/23/21 09:00 Furosemide 20 Mg Tab PO DAILY [facility] Guaifenesin 600 mg 10/22/21 21:00 Guaifenesin 600 Mg Tab.Er PO BID [facility] Sodium Chloride 100 mls @ 75 mls/hr 10/22/21 08:30 10/22/21 08:42 Normal Saline IV 75 mls/hr ASDIRECTED [facility] Administration Azithromycin 500 mg/ Sodium 250 mls @ 250 mls/hr 10/23/21 09:30 Chloride IV Q24H [facility] Ceftriaxone Sodium 2 gm/ 100 mls @ 200 mls/hr 10/23/21 09:00 Sodium Chloride IV Q24H [facility] Insulin Glargine 72 unit 10/22/21 21:00 Insulin Glarg,Human.Rec.Analog 100 Unit/Ml SUBCUT BEDTIME [facility] Insulin Human Lispro 0 unit 10/22/21 17:30 Insulin Lispro 100 Unit/Ml 3 Ml Kwikpen SUBCUT WITHMEALSANDBED [facility] Protocol Magnesium Hydroxide 30 ml 10/22/21 14:45 Magnesium Hydroxide 400 Mg/5 Ml Susp 30 Ml Cup PO Q12H PRN Constipation Methylprednisolone Sodium Succinate 60 mg 10/23/21 09:00 Methylprednisolone Sodium Succinate 40 Mg/1 Ml Sdv IVPUSH DAILY [facility] Montelukast Sodium 10 mg 10/22/21 21:00 Montelukast 10 Mg Tab PO BEDTIME [facility] Ondansetron HCl 4 mg 10/22/21 13:47 Ondansetron 4 Mg/2 Ml Sdv IV Q6H PRN Nausea/Vomiting Clorazepate 3.75 Mg 0 each 10/22/21 21:00 Tablet PO BID [facility] Roflumilast [ 0 each 10/23/21 09:00 Daliresp] 500 Mcg PO Tablet DAILY [facility] Fluticasone/ 0 each 10/23/21 10:00 Umeclidin/Vilanter 1 INH Each Blst.W.Dev 1000 [facility] Potassium Chloride 10 meq 10/23/21 09:00 Potassium Chloride 10 Meq Tab.Er PO DAILY [facility] Sodium Chloride 10 ml 10/22/21 06:45 10/22/21 06:52 Sodium Chloride 0.9% 10 Ml Syringe FLUSH 10 ml ASDIRECTED PRN Administration Keep Vein Open Sodium Chloride 10 ml 10/22/21 08:23 10/22/21 08:43 Sodium Chloride 0.9% 10 Ml Syringe FLUSH 10 ml ONETIME PRN Administration IV FLUSH Discontinued Medications Generic Name Dose Route Start Last Admin Trade Name Freq PRN Reason Stop Dose Admin Albuterol Confirm 10/22/21 07:13 10/22/21 07:20 Albuterol 0.083% 2.5 Mg/3 Ml Neb Soln Administered 10/22/21 07:14 10 mg Dose Administration 10 mg .ROUTE .STK-MED ONE Albuterol 10 mg 10/22/21 07:20 10/22/21 07:20 Albuterol 0.083% 2.5 Mg/3 Ml Neb Soln NEB 10/22/21 07:21 10 mg ONETIME ONE Administration Albuterol 2.5 mg 10/22/21 13:28 10/22/21 13:38 Albuterol 0.083% 2.5 Mg/3 Ml Neb Soln NEB 10/22/21 13:29 2.5 mg ONETIME ONE Administration Albuterol/Ipratropium 3 ml 10/22/21 06:45 10/22/21 06:55 Albuterol/Ipratropium 3.0-0.5 Mg/3 Ml Neb Soln NEB 10/22/21 06:46 3 ml ONETIME ONE Administration Alprazolam 0.5 mg 10/22/21 13:52 Alprazolam 0.5 Mg Tab PO DAILY PRN flying Budesonide mg 10/22/21 15:00 Budesonide 0.25 Mg/2 Ml Neb Susp INH TID [facility] Budesonide Confirm 10/22/21 15:27 10/22/21 15:32 Budesonide 0.5 Mg/2 Ml Neb Susp Administered 10/22/21 15:28 Not Given Dose 0.5 mg .ROUTE .STK-MED ONE Magnesium Sulfate 2 gm/ Premix 50 mls @ 25 mls/hr 10/22/21 07:08 10/22/21 07:21 IV 10/22/21 09:07 25 mls/hr ONETIME ONE Administration Levofloxacin/Dextrose 750 mg/ 150 mls @ 100 mls/hr 10/22/21 07:13 10/22/21 09:13 Premix IV 10/22/21 08:42 Not Given ONETIME ONE Sodium Chloride 500 mls @ 1,000 mls/hr 10/22/21 07:14 10/22/21 07:50 Normal Saline IV 10/22/21 07:43 1,000 mls/hr .BOLUS ONE Administration Azithromycin 500 mg/ Sodium 250 mls @ 250 mls/hr 10/22/21 07:52 10/22/21 09:41 Chloride IV 10/22/21 08:51 250 mls/hr ONETIME ONE Administration Ceftriaxone Sodium 1 gm/ 100 mls @ 200 mls/hr 10/22/21 07:52 Sodium Chloride IV 10/22/21 08:21 ONETIME ONE Ceftriaxone Sodium 1 gm/ 100 mls @ 200 mls/hr 10/22/21 08:03 10/22/21 08:48 Sodium Chloride IV 10/22/21 08:32 200 mls/hr ONETIME ONE Administration Iopamidol 100 ml 10/22/21 08:23 10/22/21 08:42 Iopamidol 755 Mg/Ml 100 Ml Bottle IVPUSH 10/22/21 08:24 100 ml ONETIME ONE Administration Lorazepam 0.5 mg 10/22/21 08:09 10/22/21 08:26 Lorazepam 2 Mg/Ml Sdv IVPUSH 10/22/21 08:10 0.5 mg ONETIME ONE Administration Methylprednisolone Sodium Succinate 125 mg 10/22/21 07:08 10/22/21 07:17 Methylprednisolone Sodium Succinate 125 Mg/2 Ml Sdv IVPUSH 10/22/21 07:09 125 mg ONETIME ONE Administration Non-Formulary Medication 50,000 units 10/22/21 14:00 Vitamin D3-50. PO ASDIRECTED [facility] Fluticasone/ 0 each 10/23/21 09:00 Umeclidin/Vilanter 1 INH Each Blst.W.Dev DAILY [place] Patient Own Medication 1 each 10/23/21 10:00 Patient's Own Medication 1 Each INH DAILY@1000 [facility] Senna/Docusate Sodium 1 tab 10/22/21 13:47 Docusate Sodium/Sennosides 50-8.6 Mg Tab PO BID PRN Constipation - Re-Assessments/Exams Free Text/Narrative Re-Assessment/Exam: 10/22/21 08:00 Respiratory status clinically improving with oxygenation in the 91 to 94%. Patient tolerating BiPAP although still restless and mildly anxious. Antibiotics infusing. Chest x-ray demonstrates evidence of bibasilar pneumonia. Departure - Departure Time of Disposition: 14:00 Disposition: Admitted As Inpatient 64 Clinical Impression: Pneumonia Qualifiers: Pneumonia type: due to unspecified organism Laterality: bilateral Lung location: unspecified part of lung Qualified Code(s): J18.9 - Pneumonia, unspecified organism - Discharge Information Critical Care Note - Critical Care Note Total Time (mins): 35 Comments: Critical Care Procedure Note Total critical care time: Approximately 35 minutes Due to a high probability of clinically significant, life threatening deterioration, the patient required my highest level of preparedness to intervene emergently and I personally spent this critical care time directly and personally managing the patient. This critical care time included obtaining a history; examining the patient; pulse oximetry; ordering and review of studies; arranging urgent treatment with development of a management plan; evaluation of patient's response to treatment; frequent reassessment; and, discussions with other providers. This critical care time was performed to assess and manage the high probability of imminent, life-threatening deterioration that could result in multi-organ failure. It was exclusive of separately billable procedures and treating other patients and teaching time. Sepsis Event Note (ED) - Evaluation Current Stage of Sepsis: Sepsis Possible Source of Sepsis: Pulmonary - Focused Exam Sepsis Event Note Statement: Focused Sepsis Exam Completed Vital Signs: Vital Signs Temp Pulse Resp BP Pulse Ox Pulse Ox Pulse Ox 12/23/21 13:38 91 L 10/22/21 08:23 92 L 10/22/21 07:20 93 L 10/22/21 06:59 86 L 10/22/21 06:34 35.9 C L 138 H 38 H 156/62 H 80 L Respiratory Effort Without Exertion: Dyspneic, Use Of Accessory Muscles Capillary Refill, Detail: Less than/Equal to (</=) 2 Seconds Skin Exam (Focused Sepsis): Pale Date Exam was Performed: 10/22/21 Time Exam was Performed: 07:35 - My Orders Last 24 Hours: My Active Orders 10/22/21 07:10 BIPAP Adult [RT BiPAP/CPAP] [RC] ASDIRECTED 10/22/21 08:23 Sodium Chloride 0.9% [Saline Flush] 10 ml FLUSH ONETIME PRN 10/22/21 08:30 Sodium Chloride 0.9% [Normal Saline] 100 ml IV ASDIRECTED 10/22/21 16:00 Budesonide [Pulmicort] 0.5 mg INH TID@0600,1600,2100 - Assessment/Plan Last 24 Hours: My Active Orders 10/22/21 07:10 BIPAP Adult [RT BiPAP/CPAP] [RC] ASDIRECTED 10/22/21 08:23 Sodium Chloride 0.9% [Saline Flush] 10 ml FLUSH ONETIME PRN 10/22/21 08:30 Sodium Chloride 0.9% [Normal Saline] 100 ml IV ASDIRECTED 10/22/21 16:00 Budesonide [Pulmicort] 0.5 mg INH TID@0600,1600,2100 Assessment:: Patient 61-year-old female presented to the emergency room with chief complaint of shortness of breath. On arrival, patient was using ab initio etl developer muscles to breathe and significant respiratory distress. Patient is placed on BiPAP was eventually able to be weaned off. Patient currently saturating on 4 L nasal cannula after receiving the numerous albuterol treatments. She also received antibiotics and slight Medrol in the emergency room. Differential diagnosis considered for this patient include pneumonia, PE, ACS, pneumothorax. Laboratory studies and imaging reviewed. No evidence of PE. There is evidence of bibasilar pneumonia. At this point, patient will require hospitalization. Case was discussed with Dr. Doan who agreed accept patient for admission.
[2021-10-22] MEDS ORDERED: Albuterol 0.083% 2.5 MG/3 ML Neb Soln NEB ONE ×2 (07:20→13:28)
[2021-10-22 07:33] LABS: CORONAVIRUS COVID-19 NAA NEGATIVE (NEGATIVE)
--- NOTE | 2021-10-22 07:51 | CR ---
Chest: Frontal view of the chest was obtained. Comparison: No prior chest x-ray is available, prior chest CT of 02/04/20. Patchy increased density is suggested within both lung bases. Upper lungs are clear. Heart size and mediastinum are normal. Bony structures show nothing acute. Impression: 1. Findings suspicious for increased density within both lung bases. Please correlate if patient has symptoms of mild bibasilar pneumonia. Diagnostic code #3
[2021-10-22] MEDS ORDERED: Azithromycin 500 MG in Sodium Chloride 0.9% 250 ML IV ONE (07:52)
[2021-10-22] MEDS ORDERED: cefTRIAXone 1 GM in Sodium Chloride 0.9% 100 ML IV ONE ×2 (07:52→08:03)
[2021-10-22] MEDS ORDERED: LORazepam 2 MG/ML SDV IVPUSH ONE (08:09)
[2021-10-22] MEDS ORDERED: Iopamidol 755 Mg/ML 100 ML Bottle IVPUSH ONE (08:23)
[2021-10-22] MEDS ORDERED: Sodium Chloride 0.9% 100 ML IV SCH (08:30)
--- NOTE | 2021-10-22 09:11 | CT ---
CT chest Technique: Multiple axial sections were obtained from above the lung apices inferiorly through the lung bases. Intravenous contrast was utilized. Study has been performed as a pulmonary angiogram protocol. Comparison: Prior chest x-ray performed earlier on the same day (7:27 AM) and CT chest study performed on 02/04/20. Findings: Pulmonary arteries are well opacified. No filling defects are seen to indicate pulmonary embolism. Thoracic aorta shows atherosclerotic change with no aneurysm. Small mediastinal lymph nodes are seen which are believed to be within normal limits. No axillary adenopathy is seen. Minimal fluid is seen within the pericardial space. Visualized upper abdominal structures show nothing acute. Lung window settings were reviewed. Scattered emphysematous change is seen. Slight nodularity is noted within the left lung base with mild associated parenchymal density. Increased density is seen within the lingula which is more prominent than on prior study either due to atelectasis or other abnormality. Minimal interstitial change is seen within the left upper lung which is an interval change from prior chest CT. Slight density is also noted within the right lung base. Bone window settings were reviewed. Minimal scattered disc space narrowing and minimal endplate osteophytes are noted within the spine. No acute osseous abnormality is appreciated. Impression: 1. No findings of pulmonary embolism. 2. Mild areas of increased density within the left upper lung as well as within both lower lungs. Nodularity is seen within the left lower lung. Findings raise the possibility of mild areas of pneumonia either viral or bacterial. 3. Other findings I believe are incidental as described above. 4. Recommend follow-up chest CT study without contrast in 4 months to confirm resolution of the nodularity within the left lung base. Diagnostic code #3
--- NOTE | 2021-10-22 13:44 | PCM.HP.2 ---
H&P History of Present Illness - General Date of Service: 10/22/21 Admit Problem/Dx: Admission Diagnosis/Problem Admission Diagnosis/Problem Pneumonia Source of Information: Patient, Old Records, Provider, RN, RN Notes Reviewed History Limitations: Reports: No Limitations - History of Present Illness Initial Comments - Free Text/Narative: This is a 61-year-old female who presents to our ED on 10/22/2021 with dyspnea. She is on home oxygen due to history of COPD and has reportedly been on this for the past 14 years. Her is at bedside and did provide much of her history. Patient reportedly had a similar episode 4 months ago and was treated with steroids with good response. This past Tuesday patient was noted to appear sick with dyspnea and cough. She went to her primary care provider on Tuesday and was given prednisone however this had no real effect and her symptoms have been worsening. She denies any pain or fevers. No recent hospitalizations. She does have an albuterol inhaler at home which she has been utilizing with minimal effect. In the ED temp was 35.9 C. Pulse 138. Respirations 38. Blood pressure 156/62. Pulse ox was 93%. Labs are obtained showing a WBC of 8.18. Hemoglobin 12.2. Platelet 281,000. Neutrophils are normal at 59%. There is no bandemia. ABGs obtained in the right radial with a pH of 7.35. PCO2 is 51.7. PO2 is 46.0. HCO3 is 28.1. O2 saturations 82.9. Base excess is 2.3. AA gradient is 89. This is obtained while on 2 L via nasal cannula. Influenza a and B as well as SARS-CoV-2 RNA are all negative. Sodium is 140. Potassium 3.7. Chloride 99. Carbon dioxide 32. Anion gap is 12.7. BUN is 21. Creatinine 1.0. GFR is 56. Glucose is 126. Lactic acid is 1.2. Calcium is 10.1. Total bilirubin 0. 6. AST is 21, ALT 30, alkaline phosphatase 79. Troponin is less than 0.017. CRP is 9.2. Protein is 8.0. Albumin is 3.6. D-dimer is 0.98. Chest x-rays obtained showing findings suspicious for increased density within both lung bases suggesting mild bibasilar pneumonia. Chest angiogram was obtained showing no findings of pulmonary embolism. There are mild areas of increased density within the left upper lung as well as within both lower lungs. Nodularity is seen within the left lower lung. Findings raise the possibility of mild areas of pneumonia either viral or bacterial. There are other incidental findings noted. Recommend follow-up chest CT within 4 months to confirm resolution of nodularity within the left lung base. She is given 2 g of magnesium and started on 1 g of Rocephin and 500 mg of azithromycin. She is also given a DuoNeb and 0.5 mg of Ativan. She is started on BiPAP. Blood cultures are obtained and are pending. 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 She is a former smoker. She is subsequently admitted to the medical floor on telemetry for management of her pneumonia and sepsis. Her PCP is Silvia Feliciano NP. She is a CPR only. Back Pain Score (Numeric/FACES): 9 - Related Data Allergies/Adverse Reactions: Allergies Allergy/AdvReac Type Severity Reaction Status Date / Time aspirin Allergy Severe Cannot Verified 10/22/21 07:55 Remember codeine Allergy Severe Change Verified 10/22/21 07:55 Mental Status latex Allergy Severe Swelling Verified 10/22/21 07:55 levofloxacin [From Levaquin] Allergy Severe Cannot Verified 10/22/21 07:55 Remember Penicillins Allergy Severe Cannot Verified 10/22/21 07:55 Remember warfarin [From Coumadin] Allergy Severe Hives Verified 10/22/21 07:55 Home Medications: Home Meds Albuterol Sulfate [Proair Digihaler] 90 mcg INH Q4HR PRN 02/04/20 [History] Ascorbate Calcium [Vitamin C] 500 mg PO TID 02/04/20 [History] Budesonide [Pulmicort] 1 dose INH TID 02/04/20 [History] Clopidogrel [Plavix] 75 mg PO DAILY 02/04/20 [History] Clorazepate [Clorazepate Dipotassium] 3.75 mg PO BID 02/04/20 [History] Docusate Sodium [Colace] 200 mg PO DAILY 02/04/20 [History] Dulaglutide [Trulicity] 1.5 mg SQ WEEKLY 02/04/20 [History] Ferrous Sulfate [Iron] 325 mg PO TID 02/04/20 [History] Fluticasone/Umeclidin/Vilanter [Trelegy Ellipta 100-62.5-25] 1 puff INH DAILY 02/04/20 [History] Insulin Aspart [NovoLOG] 14 - 22 units SQ TID 02/04/20 [History] Insulin Glargine,Hum.Rec.Anlog [Toujeo Solostar] 90 units SQ BEDTIME 02/04/20 [History] Montelukast [Singulair] 10 mg PO BEDTIME 02/04/20 [History] [place]-3/DHA/Epa/Fish Oil [[place] 3 500 Softgel] 1 gm PO DAILY 02/04/20 [History] Roflumilast [Daliresp] 500 mcg PO DAILY 02/04/20 [History] guaiFENesin [Mucinex] 600 mg PO BID 02/04/20 [History] metFORMIN [Glucophage XR] 500 mg PO BID 02/04/20 [History] predniSONE [Prednisone] 40 mg PO DAILY #10 tablet 02/04/20 [Rx] ALPRAZolam [Alprazolam] 0.5 mg PO DAILY PRN 10/22/21 [History] Albuterol/Ipratropium [DuoNeb 3.0-0.5 MG/3 ML] 31 unit INH Q8H 10/22/21 [History] Cetirizine HCl [Zyrtec] 10 mg PO DAILY 10/22/21 [History] Famotidine 20 mg PO BID 10/22/21 [History] Furosemide [Lasix] 20 mg PO DAILY 10/22/21 [History] Potassium Chloride [Klor-Con 10] 10 meq PO DAILY 10/22/21 [History] Vitamin D3-50. 50,000 units PO ASDIRECTED 10/22/21 [History] atorvaSTATin [Lipitor] 40 mg PO BEDTIME 10/22/21 [History] Past Medical History HEENT History: Reports: Impaired Vision Other HEENT History: jerry jerome Cardiovascular History: Reports: Blood Clots/VTE/DVT, High Cholesterol Respiratory History: Reports: Asthma, COPD, Pneumonia, Recurrent, SOB Gastrointestinal History: Reports: Colon Polyp, Other (See Below) Other Gastrointestinal History: blood in stool unsure of where bleeding is coming from. 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 seeing MD for it. - Past Surgical History GI Surgical History: Reports: Polypectomy Female Surgical History: Reports: Hysterectomy, Ureteral Stent Social & Family History - Tobacco Use Tobacco Use Status *Q: Former Tobacco User Used Tobacco, but Quit: Yes Month/Year Tobacco Last Used: 1999 - Caffeine Use Caffeine Use: Reports: Tea - Recreational Drug Use Recreational Drug Use: No H&P Review of Systems - Review of Systems: Review Of Systems: See Below General: Reports: Malaise, Weakness, Fatigue. Denies: Fever, Chills HEENT: Reports: No Symptoms. Denies: Headaches, Sore Throat Pulmonary: Reports: Shortness of Breath (Acute on chronic), Wheezing (Acute on chronic), Cough (Acute on chronic), Sputum (Acute on chronic). Denies: Pleuritic Chest Pain, Hemoptysis Cardiovascular: Reports: Dyspnea on Exertion (Acute on chronic). Denies: Chest Pain, Palpitations, Orthopnea, Edema, Lightheadedness, Syncope Gastrointestinal: Reports: No Symptoms. Denies: Abdominal Pain, Constipation, Diarrhea, Nausea, Vomiting Genitourinary: Reports: Burning, Pain. Denies: Frequency, Urgency Musculoskeletal: Reports: Back Pain Skin: Reports: No Symptoms. Denies: Cyanosis Psychiatric: Reports: No Symptoms. Denies: Confusion Neurological: Reports: Difficulty Walking, Weakness. Denies: Confusion, Dizziness, Headache, Numbness, Pre-Existing Deficit, Seizure, Tingling, Trouble Speaking, Gait Disturbance Hematologic/Lymphatic: Reports: No Symptoms Immunologic: Reports: No Symptoms Exam - Exam Exam: See Below - Vital Signs Vital Signs: Last Vital Signs Temp 96.7 F L 10/22/21 06:34 Pulse 138 H 10/22/21 06:34 Resp 38 H 10/22/21 06:34 BP 156/62 H 10/22/21 06:34 Pulse Ox 92 L 10/22/21 08:23 Weight: 167 lb - Exam Quality Assessment: Supplemental Oxygen (4.5 L with 2 L as home baseline), DVT Prophylaxis. No: Urinary Catheter General: Alert, Oriented, Cooperative, Mild Distress (Acutely short of breath) HEENT: Conjunctiva Clear, EACs Clear, Hearing Intact, Mucosa Moist & Crowell, Posterior Pharynx Clear, PERRLA Neck: Supple, Trachea Midline Lungs: Rhonchi, Wheezing. No: Normal Respiratory Effort (Tachypnea) Cardiovascular: Regular Rhythm, Tachycardia GI/Abdominal Exam: Normal Bowel Sounds, Soft, Non-Tender, No Distention (Female) Exam: Deferred Rectal (Female) Exam: Deferred Back Exam: Normal Inspection, Full Range of Motion, CVA Tenderness (L), Paraspinal Tenderness. No: CVA Tenderness (R) Extremities: Normal Inspection, Normal Range of Motion, Non-Tender, No Pedal Edema, Normal Capillary Refill Peripheral Pulses: 4+: Radial (L), Radial (R), Dorsalis Pedis (L), Dorsalis Pedis (R) Skin: Warm, Dry, Intact Neurological: Cranial Nerves Intact (Grossly) Neuro Extensive - Mental Status: Alert, Oriented x3, Normal Mood/Affect - Patient Data Lab Results Last 24 hrs: Laboratory Results - last 24 hr 10/22/21 10/22/21 10/22/21 Range/Units 06:40 06:56 07:20 WBC 8.18 (3.98-10.04) K/mm3 RBC 4.65 (3.98-5.22) M/mm3 Hgb 12.2 (11.2-15.7) gm/dl Hct 39.8 (34.1-44.9) % MCV 85.6 D (79.4-94.8) fl MCH 26.2 (25.6-32.2) pg MCHC 30.7 L (32.2-35.5) g/dl RDW Std Deviation 46.1 (36.4-46.3) fL Plt Count 281 (182-369) K/mm3 MPV 9.9 (9.4-12.3) fl Neutrophils % (Manual) 59 (40-60) % Band Neutrophils % 0 (0-10) % Lymphocytes % (Manual) 32 (20-40) % Atypical Lymphs % 0 % Monocytes % (Manual) 9 (2-10) % Eosinophils % (Manual) 0 L (0.7-5.8) % Basophils % (Manual) 0 L (0.1-1.2) Platelet Estimate Adequate RBC Morph Comment Normal D-Dimer, Quantitative (0.19-0.50) mg/L Puncture Site Rt radial ABG pH 7.35 (7.35-7.45) ABG pCO2 51.7 H (35.0-45.0) mmHg ABG pO2 46.0 L (80.0-100.0) mmHg ABG HCO3 28.1 H (22.0-26.0) meq/L ABG O2 Saturation 82.9 L (96.0-97.0) % ABG Base Excess 2.3 H (-2-2.0) Adalid Test Positive A-a Gradient 89 mmHg O2 Delivery Device Nasal cannula Oxygen Flow Rate 2.0 FiO2 28.00 (21.00-100.00) % Sodium (136-145) mEq/L Potassium (3.5-5.1) mEq/L Chloride (98-107) mEq/L Carbon Dioxide (21-32) mEq/L Anion Gap (5-15) BUN (7-18) mg/dL Creatinine (0.55-1.02) mg/dL Est Cr Clr Drug Dosing mL/min Estimated GFR (MDRD) (>60) mL/min BUN/Creatinine Ratio (14-18) Glucose (70-99) mg/dL Lactic Acid (0.4-2.0) mmol/L Calcium (8.5-10.1) mg/dL Total Bilirubin (0.2-1.0) mg/dL AST (15-37) U/L ALT (14-59) U/L Alkaline Phosphatase (46-116) U/L Troponin I (0.00-0.056) ng/mL C-Reactive Protein (<1.0) mg/dL NT-Pro-B Natriuret Pep (0-125) pg/mL Total Protein (6.4-8.2) g/dl Albumin (3.4-5.0) g/dl Globulin gm/dL Albumin/Globulin Ratio (1-2) Influenza Type A RNA Negative (NEGATIVE) Influenza Type B RNA Negative (NEGATIVE) SARS-CoV-2 RNA (DAVIDSON) Negative (NEGATIVE) 10/22/21 10/22/21 10/22/21 Range/Units 07:20 07:20 07:20 WBC (3.98-10.04) K/mm3 RBC (3.98-5.22) M/mm3 Hgb (11.2-15.7) gm/dl Hct (34.1-44.9) % MCV (79.4-94.8) fl MCH (25.6-32.2) pg MCHC (32.2-35.5) g/dl RDW Std Deviation (36.4-46.3) fL Plt Count (182-369) K/mm3 MPV (9.4-12.3) fl Neutrophils % (Manual) (40-60) % Band Neutrophils % (0-10) % Lymphocytes % (Manual) (20-40) % Atypical Lymphs % % Monocytes % (Manual) (2-10) % Eosinophils % (Manual) (0.7-5.8) % Basophils % (Manual) (0.1-1.2) Platelet Estimate RBC Morph Comment D-Dimer, Quantitative 0.98 H (0.19-0.50) mg/L Puncture Site ABG pH (7.35-7.45) ABG pCO2 (35.0-45.0) mmHg ABG pO2 (80.0-100.0) mmHg ABG HCO3 (22.0-26.0) meq/L ABG O2 Saturation (96.0-97.0) % ABG Base Excess (-2-2.0) Adalid Test A-a Gradient mmHg O2 Delivery Device Oxygen Flow Rate FiO2 (21.00-100.00) % Sodium 140 (136-145) mEq/L Potassium 3.7 (3.5-5.1) mEq/L Chloride 99 (98-107) mEq/L Carbon Dioxide 32 (21-32) mEq/L Anion Gap 12.7 (5-15) BUN 21 H (7-18) mg/dL Creatinine 1.0 (0.55-1.02) mg/dL Est Cr Clr Drug Dosing 45.54 mL/min Estimated GFR (MDRD) 56 (>60) mL/min BUN/Creatinine Ratio 21.0 H (14-18) Glucose 126 H (70-99) mg/dL Lactic Acid (0.4-2.0) mmol/L Calcium 10.1 (8.5-10.1) mg/dL Total Bilirubin 0.6 (0.2-1.0) mg/dL AST 21 (15-37) U/L ALT 30 (14-59) U/L Alkaline Phosphatase 79 (46-116) U/L Troponin I < 0.017 (0.00-0.056) ng/mL C-Reactive Protein 9.2 H* (<1.0) mg/dL NT-Pro-B Natriuret Pep 121 (0-125) pg/mL Total Protein 8.0 (6.4-8.2) g/dl Albumin 3.6 (3.4-5.0) g/dl Globulin 4.4 gm/dL Albumin/Globulin Ratio 0.8 L (1-2) Influenza Type A RNA (NEGATIVE) Influenza Type B RNA (NEGATIVE) SARS-CoV-2 RNA (DAVIDSON) (NEGATIVE) 10/22/21 Range/Units 07:20 WBC (3.98-10.04) K/mm3 RBC (3.98-5.22) M/mm3 Hgb (11.2-15.7) gm/dl Hct (34.1-44.9) % MCV (79.4-94.8) fl MCH (25.6-32.2) pg MCHC (32.2-35.5) g/dl RDW Std Deviation (36.4-46.3) fL Plt Count (182-369) K/mm3 MPV (9.4-12.3) fl Neutrophils % (Manual) (40-60) % Band Neutrophils % (0-10) % Lymphocytes % (Manual) (20-40) % Atypical Lymphs % % Monocytes % (Manual) (2-10) % Eosinophils % (Manual) (0.7-5.8) % Basophils % (Manual) (0.1-1.2) Platelet Estimate RBC Morph Comment D-Dimer, Quantitative (0.19-0.50) mg/L Puncture Site ABG pH (7.35-7.45) ABG pCO2 (35.0-45.0) mmHg ABG pO2 (80.0-100.0) mmHg ABG HCO3 (22.0-26.0) meq/L ABG O2 Saturation (96.0-97.0) % ABG Base Excess (-2-2.0) Adalid Test A-a Gradient mmHg O2 Delivery Device Oxygen Flow Rate FiO2 (21.00-100.00) % Sodium (136-145) mEq/L Potassium (3.5-5.1) mEq/L Chloride (98-107) mEq/L Carbon Dioxide (21-32) mEq/L Anion Gap (5-15) BUN (7-18) mg/dL Creatinine (0.55-1.02) mg/dL Est Cr Clr Drug Dosing mL/min Estimated GFR (MDRD) (>60) mL/min BUN/Creatinine Ratio (14-18) Glucose (70-99) mg/dL Lactic Acid 1.2 (0.4-2.0) mmol/L Calcium (8.5-10.1) mg/dL Total Bilirubin (0.2-1.0) mg/dL AST (15-37) U/L ALT (14-59) U/L Alkaline Phosphatase (46-116) U/L Troponin I (0.00-0.056) ng/mL C-Reactive Protein (<1.0) mg/dL NT-Pro-B Natriuret Pep (0-125) pg/mL Total Protein (6.4-8.2) g/dl Albumin (3.4-5.0) g/dl Globulin gm/dL Albumin/Globulin Ratio (1-2) Influenza Type A RNA (NEGATIVE) Influenza Type B RNA (NEGATIVE) SARS-CoV-2 RNA (DAVIDSON) (NEGATIVE) Result Diagrams: 10/22/21 07:20 10/22/21 07:20 Sepsis Event Note - Focused Exam Vital Signs: Vital Signs Temp Pulse Resp BP Pulse Ox Pulse Ox Pulse Ox 10/22/21 08:23 92 L 10/22/21 07:20 93 L 10/22/21 06:59 86 L 10/22/21 06:34 96.7 F L 138 H 38 H 156/62 H 80 L - Problem List (1) Pneumonia SNOMED Code(s): 534186095 ICD Code: J18.9 - PNEUMONIA, UNSPECIFIED ORGANISM Status: Acute Priority: High Current Visit: Yes Qualifiers: Pneumonia type: due to unspecified organism Laterality: bilateral Lung lo cation: unspecified part of lung Qualified Code(s): J18.9 - Pneumonia, unspecified organism (2) Sepsis SNOMED Code(s): 38000676 ICD Code: A41.9 - SEPSIS, UNSPECIFIED ORGANISM Status: Acute Priority: High Current Visit: Yes Qualifiers: Sepsis type: sepsis due to unspecified organism Sepsis acute organ dysfunction status: with acute organ dysfunction Severe sepsis acute organ dysfunction type: acute respiratory failure Acute respiratory failure type: with hypoxia Severe sepsis shock status: without septic shock Qualified Code(s): A41.9 - Sepsis, unspecified organism; R65.20 - Severe sepsis without septic shock; J96.01 - Acute respiratory failure with hypoxia (3) Recurrent pneumonia SNOMED Code(s): 185125464 ICD Code: J18.9 - PNEUMONIA, UNSPECIFIED ORGANISM Status: Chronic Priority: High Current Visit: Yes (4) Recurrent UTI SNOMED Code(s): 386425043 ICD Code: N39.0 - URINARY TRACT INFECTION, SITE NOT SPECIFIED Status: Chronic Priority: Low Current Visit: No (5) Asthma SNOMED Code(s): 274947913 ICD Code: J45.909 - UNSPECIFIED ASTHMA, UNCOMPLICATED Status: Chronic Priority: High Current Visit: Yes Qualifiers: Asthma severity: unspecified severity Asthma persistence: unspecified Asthma complication type: unspecified Qualified Code(s): J45.909 - Unspecified asthma, uncomplicated (6) Chronic respiratory failure with hypoxia, on home oxygen therapy SNOMED Code(s): 245936448 ICD Code: J96.11 - CHRONIC RESPIRATORY FAILURE WITH HYPOXIA; Z99.81 - DEPENDENCE ON SUPPLEMENTAL OXYGEN Status: Chronic Priority: High Current Visit: Yes (7) Acute respiratory failure with hypoxia SNOMED Code(s): 89631071, 385533239 ICD Code: J96.01 - ACUTE RESPIRATORY FAILURE WITH HYPOXIA Status: Acute Priority: High Current Visit: Yes (8) COPD exacerbation SNOMED Code(s): 268251582 ICD Code: J44.1 - CHRONIC OBSTRUCTIVE PULMONARY DISEASE W (ACUTE) EXACERBATION Status: Acute Priority: High Current Visit: Yes (9) History of venous thromboembolism SNOMED Code(s): 329652243 ICD Code: Z86.718 - PERSONAL HISTORY OF OTHER VENOUS THROMBOSIS AND EMBOLISM Status: Chronic Priority: Medium Current Visit: No (10) HLD (hyperlipidemia) SNOMED Code(s): 87916981 ICD Code: E78.5 - HYPERLIPIDEMIA, UNSPECIFIED Status: Chronic Priority: Low Current Visit: No Qualifiers: Hyperlipidemia type: unspecified Qualified Code(s): E78.5 - Hyperlipidemia, unspecified (11) History of renal stent SNOMED Code(s): 337374017 ICD Code: [id number] - Status: Chronic Priority: Low Current Visit: No (12) Anxiety SNOMED Code(s): 63363694 ICD Code: F41.9 - ANXIETY DISORDER, UNSPECIFIED Status: Chronic Priority: Medium Current Visit: No (13) Type II diabetes mellitus SNOMED Code(s): 90260261 ICD Code: E11.9 - TYPE 2 DIABETES MELLITUS WITHOUT COMPLICATIONS Status: Chronic Priority: Medium Current Visit: Yes Qualifiers: Diabetes mellitus long term care social worker insulin use: with jail use Diabetes mellitus complication status: with other specified complication Qualified Code(s): E11.69 - Type 2 diabetes mellitus with other specified complication; Z79.4 - equipment operator intermodal yard (current) use of insulin (14) Vitamin D deficiency SNOMED Code(s): 49725553 ICD Code: E55.9 - VITAMIN D DEFICIENCY, UNSPECIFIED Status: Chronic Priority: Low Current Visit: No (15) Iron deficiency SNOMED Code(s): 75874640 ICD Code: E61.1 - IRON DEFICIENCY Status: Chronic Priority: Low Current Visit: No (16) Papilloma of right breast SNOMED Code(s): 81324273476967 ICD Code: D24.1 - BENIGN NEOPLASM OF RIGHT BREAST Status: Chronic Priority: Low Current Visit: No (17) Former smoker SNOMED Code(s): 0201038 ICD Code: Z87.891 - PERSONAL HISTORY OF NICOTINE DEPENDENCE Status: Chronic Priority: Medium Current Visit: No (18) Lung nodule SNOMED Code(s): 091347852 ICD Code: R91.1 - SOLITARY PULMONARY NODULE Status: Acute Priority: Low Current Visit: Yes (19) EVELYN (iron deficiency anemia) SNOMED Code(s): 00704502 ICD Code: D50.9 - IRON DEFICIENCY ANEMIA, UNSPECIFIED Status: Chronic Priority: Medium Current Visit: No Qualifiers: Iron deficiency anemia type: chronic blood loss Qualified Code(s): D50.0 - Iron deficiency anemia secondary to blood loss (chronic) (20) Chronic GI hemorrhage SNOMED Code(s): 96152801 ICD Code: K92.2 - GASTROINTESTINAL HEMORRHAGE, UNSPECIFIED Status: Chronic Priority: Medium Current Visit: No (21) Generalized weakness SNOMED Code(s): 71189009 ICD Code: R53.1 - WEAKNESS Status: Acute Priority: High Current Visit: Yes Problem List Initiated/Reviewed/Updated: Yes Orders Last 24hrs: Active Orders 24 hr Category Date Time Status Patient Status [ADT] Routine ADT 10/22/21 13:34 Active BIPAP Adult [RT BiPAP/CPAP] [RC] ASDIRECTED Care 10/22/21 07:10 Active Peripheral IV Care [RC] . DIRECTED Care 10/22/21 06:50 Active RT Aerosol Therapy [RC] ASDIRECTED Care 10/22/21 07:30 Active RT Aerosol Therapy [RC] ASDIRECTED Care 10/22/21 13:28 Active BLOOD CULTURE [MREF] Stat Lab 10/22/21 07:15 Received BLOOD CULTURE [MREF] Stat Lab 10/22/21 07:20 Received Sodium Chloride 0.9% [Normal Saline] 100 ml Med 10/22/21 08:30 Active IV ASDIRECTED Sodium Chloride 0.9% [Saline Flush] Med 10/22/21 06:45 Active 10 ml FLUSH ASDIRECTED PRN Sodium Chloride 0.9% [Saline Flush] Med 10/22/21 08:23 Active 10 ml FLUSH ONETIME PRN Blood Culture x2 Reflex Set [OM.PC] Stat Oth 10/22/21 06:49 Ordered Peripheral IV Insertion Adult [OM.PC] Stat Oth 10/22/21 06:50 Ordered Medication Orders Sodium Chloride (Normal Saline) 100 mls @ 75 mls/hr IV ASDIRECTED CHAGO Last Admin: 10/22/21 08:42 Dose: 75 mls/hr Documented by: NEFTALI Sodium Chloride (Sodium Chloride 0.9% 10 Ml Syringe) 10 ml FLUSH ASDIRECTED PRN PRN Reason: Keep Vein Open Last Admin: 10/22/21 06:52 Dose: 10 ml Documented by: EVIE Sodium Chloride (Sodium Chloride 0.9% 10 Ml Syringe) 10 ml FLUSH ONETIME PRN PRN Reason: IV FLUSH Last Admin: 10/22/21 08:43 Dose: 10 ml Documented by: NEFTALI Assessment/Plan Comment:: Pneumonia Sepsis Recurrent pneumonia Asthma Chronic respiratory failure with hypoxia, on home oxygen therapy Acute respiratory failure with hypoxia COPD exacerbation Former smoker Generalized weakness * Oxygen as needed to keep saturations greater than 88%. Patient chronically on 2 L of oxygen * BiPAP as needed * 2 g Rocephin daily * 500 mg azithromycin daily * Check viral respiratory panel * Blood cultures pending * Check mycoplasma * Check strep pneumonia * Procalcitonin pending * Continue home respiratory medications * Consult respiratory therapy * I-S/Acapella * 60 mg daily methylprednisolone IV push -hold home steroid * 4 times daily scheduled DuoNebs * As needed albuterol nebulizers * Droplet precautions * Repeat chest x-ray as needed * Sputum culture if able to produce * Continuous pulse oximetry * Telemetry * Sepsis Screen: Suspected pneumonia, tachycardia, tachypnea, respiratory failure requiring BiPAP: Meets criteria * PT/OC * CM/SW consultation Type II diabetes mellitus * 4 times daily before meals and bedtime blood glucose checks * Hold home Metformin * Continue home long-acting insulin * Hold home weekly insulin * Medium intensity sliding scale insulin * Consistent carbohydrate diet * Anticipate blood glucose rise due to steroids Lung nodule * PCP follow-up * Radiology recommending repeat CT scan of chest without contrast in 4 months History of venous thromboembolism * No acute concerns * Continue home Plavix HLD (hyperlipidemia) * Acute concerns * Continue home statin EVELYN (Iron deficiency anemia) Chronic GI bleed * Per patient her electrochemist will not sign off on a colonoscopy due to concerns of her respiratory status * Continue home iron and vitamin C * Monitor labs History of renal stent * No acute concerns Anxiety * No acute concerns * Continue home antianxiety meds Vitamin D deficiency Iron deficiency * No acute concerns * Continue home supplementation Papilloma of right breast * No acute concerns Recurrent UTI * No acute concerns Code status: CPR only PCP: Silvia Feliciano NP VTE Prophylaxis: Home plavix Disposition: Admitted to the ICU as a MedSurg overflow on telemetry for management of pneumonia in the presence of multiple chronic lung conditions and sepsis. Likely length of stay 3 to 4 days. - Mortality Measure Prognosis:: Poor (Overall poor prognosis given multiple lung comorbidities and baseline dependence on home oxygen supplementation.)
[2021-10-22] MEDS ORDERED: Ondansetron 4 MG/2 ML SDV IV PRN (13:47)
[2021-10-22] MEDS ORDERED: Albuterol 0.083% 2.5 MG/3 ML Neb Soln NEB PRN (13:47)
[2021-10-22] MEDS ORDERED: ALPRAZolam 0.5 MG Tab PO PRN (13:52)
[2021-10-22] MEDS ORDERED: VITAMIN D3 PO SCH (14:00)
[2021-10-22] MEDS ORDERED: Magnesium Hydroxide 400 MG/5 ML Susp 30 ML Cup PO PRN (14:45)
[2021-10-22] MEDS ORDERED: Budesonide 0.25 MG/2 ML Neb Susp INH SCH (15:00)
[2021-10-22] MEDS ORDERED: Budesonide 0.5 MG/2 ML Neb Susp ONE (15:27)
[2021-10-22] MEDS: Albuterol/Ipratropium 3.0-0.5 MG/3 ML Neb Soln NEB SCH ×2 (15:30→20:15)
[2021-10-22] MEDS: Budesonide 0.5 MG/2 ML Neb Susp INH SCH ×2 (15:31→20:15)
[2021-10-22] MEDS: Ascorbic Acid 500 MG Tab PO SCH ×2 (18:10→21:07)
[2021-10-22] MEDS: Ferrous Sulfate 324 MG Tab.EC PO SCH ×2 (18:10→22:05)
[2021-10-22] MEDS: Insulin Lispro 100 Unit/ML 3 ML KwikPen SUBCUT SCH ×2 (18:29→21:09)
[2021-10-22] MEDS ORDERED: Insulin Glarg,Human.Rec.Analog 100 Unit/ML SUBCUT SCH (21:00)
[2021-10-22] MEDS ORDERED: Non-Formulary Medication 1 Each (Insulin Glargine,Hum.Rec.Anlog [Toujeo Solostar] 300 UNIT SQ SCH (21:00)
[2021-10-22] MEDS ORDERED: Famotidine 20 MG Tab PO ONE (21:00)
[2021-10-22] MEDS: ALPRAZolam 0.5 MG Tab PO PRN (21:07)
[2021-10-22] MEDS: Montelukast 10 MG Tab PO SCH (21:07)
[2021-10-22] MEDS: guaiFENesin 600 MG Tab.ER PO SCH (21:07)
[2021-10-22] MEDS: atorvaSTATin 40 MG Tab PO SCH (21:10)
[2021-10-22] MEDS: Insulin Glargine,Hum.Rec.Anlog 100 UNIT/ML 3 ML Pen SUBCUT SCH (22:01)
[2021-10-23] MEDS: Albuterol/Ipratropium 3.0-0.5 MG/3 ML Neb Soln NEB SCH ×4 (06:14→20:23)
[2021-10-23] MEDS: Budesonide 0.5 MG/2 ML Neb Susp INH SCH ×3 (06:14→20:23)
[2021-10-23] MEDS: Insulin Lispro 100 Unit/ML 3 ML KwikPen SUBCUT SCH ×4 (08:26→20:43)
[2021-10-23] MEDS: Cetirizine 10 MG Tab PO SCH (08:40)
[2021-10-23] MEDS: Potassium Chloride 10 MEQ Tab.ER PO SCH (08:41)
[2021-10-23] MEDS: Furosemide 20 MG Tab PO SCH (08:41)
[2021-10-23] MEDS: Ascorbic Acid 500 MG Tab PO SCH ×3 (08:41→21:14)
[2021-10-23] MEDS: guaiFENesin 600 MG Tab.ER PO SCH ×2 (08:41→20:38)
[2021-10-23] MEDS: Clopidogrel 75 MG Tab PO SCH (08:42)
[2021-10-23] MEDS: Ferrous Sulfate 324 MG Tab.EC PO SCH ×3 (08:42→20:39)
[2021-10-23] MEDS: Roflumilast [Daliresp] 500 MCG Tablet PO SCH (08:43)
[2021-10-23] MEDS: cefTRIAXone 2 GM in Sodium Chloride 0.9% 100 ML IV SCH (08:44)
[2021-10-23] MEDS: methylPREDNISolone Sodium Succinate 40 MG/1 ML SDV IVPUSH SCH (08:44)
[2021-10-23] MEDS: Famotidine 20 MG Tab PO SCH ×2 (08:56→20:39)
[2021-10-23] MEDS: Docusate Sodium 100 MG Cap PO SCH (08:56)
[2021-10-23] MEDS: ALPRAZolam 0.5 MG Tab PO PRN ×2 (09:03→20:40)
[2021-10-23] MEDS: Acetaminophen 325 MG Tab PO PRN ×2 (09:29→17:16)
[2021-10-23] MEDS ORDERED: Azithromycin 500 MG in Sodium Chloride 0.9% 250 ML IV SCH (09:30)
[2021-10-23] MEDS: Enoxaparin 40 MG/0.4 ML Syringe SUBCUT SCH (09:30)
[2021-10-23] MEDS ORDERED: Patient's Own Medication 1 Each INH SCH (10:00)
[2021-10-23] MEDS ORDERED: hydrALAZINE 20 MG/ML SDV IVPUSH PRN (11:57)
--- NOTE | 2021-10-23 11:57 | PCM.PN ---
- General Info Date of Service: 10/23/21 Admission Dx/Problem (Free Text): Admission Diagnosis/Problem Admission Diagnosis/Problem Pneumonia Subjective Update: This is a 61-year-old female who presents to our ED on 10/22/2021 with dyspnea. She is on home oxygen due to history of COPD and has reportedly been on this for the past 14 years. Patient still has shortness of breath. She has been coughing with yellowish sputum. But denies fever or chills. She has a tachycardia and tachypnea. She is now on 3 to 3.5 L oxygen. Blood pressure is high at times - Review of Systems Systems Review Comment:: General: Reports: Malaise, Weakness, Fatigue. Denies: Fever, Chills HEENT: Reports: No Symptoms. Denies: Headaches, Sore Throat Pulmonary: Reports: Shortness of Breath (Acute on chronic), Wheezing (Acute on chronic), Cough (Acute on chronic), Sputum (Acute on chronic). Denies: Pleuritic Chest Pain, Hemoptysis Cardiovascular: Reports: Dyspnea on Exertion (Acute on chronic). Denies: Chest Pain, Palpitations, Orthopnea, Edema, Lightheadedness, Syncope Gastrointestinal: Reports: No Symptoms. Denies: Abdominal Pain, Constipation, Diarrhea, Nausea, Vomiting Genitourinary: Reports: Burning, Pain. Denies: Frequency, Urgency Musculoskeletal: Reports: Back Pain Skin: Reports: No Symptoms. Denies: Cyanosis Psychiatric: Reports: No Symptoms. Denies: Confusion Neurological: Reports: Difficulty Walking, Weakness. Denies: Confusion, Dizziness, Headache, Numbness, Pre-Existing Deficit, Seizure, Tingling, Trouble Speaking, Gait Disturbance Hematologic/Lymphatic: Reports: No Symptoms Immunologic: Reports: No Symptoms - Patient Data Vitals - Most Recent: Last Vital Signs Temp 36.1 C 10/23/21 09:01 Pulse 120 H 10/23/21 09:01 Resp 17 10/23/21 09:01 BP 130/63 10/23/21 09:01 Pulse Ox 99 10/23/21 09:10 Weight - Most Recent: 74.072 kg I&O - Last 24 Hours: Intake & Output 10/22/21 10/23/21 10/23/21 22:59 06:59 14:59 Intake Total 360 400 Output Total 400 Balance 360 0 Lab Results Last 24 Hours: Laboratory Results - last 24 hr 10/22/21 10/22/21 10/22/21 Range/Units 07:20 13:58 16:50 WBC (3.98-10.04) K/mm3 RBC (3.98-5.22) M/mm3 Hgb (11.2-15.7) gm/dl Hct (34.1-44.9) % MCV (79.4-94.8) fl MCH (25.6-32.2) pg MCHC (32.2-35.5) g/dl RDW Std Deviation (36.4-46.3) fL Plt Count (182-369) K/mm3 MPV (9.4-12.3) fl Neut % (Auto) (34.0-71.1) % Lymph % (Auto) (19.3-51.7) % [place] % (Auto) (4.7-12.5) % Eos % (Auto) (0.7-5.8) Baso % (Auto) (0.1-1.2) % Neut # (Auto) (1.56-6.13) K/mm3 Lymph # (Auto) (1.18-3.74) K/mm3 [place] # (Auto) (0.24-0.36) K/mm3 Eos # (Auto) (0.04-0.36) K/mm3 Baso # (Auto) (0.01-0.08) K/mm3 Manual Slide Review Sodium (136-145) mEq/L Potassium (3.5-5.1) mEq/L Chloride (98-107) mEq/L Carbon Dioxide (21-32) mEq/L Anion Gap (5-15) BUN (7-18) mg/dL Creatinine (0.55-1.02) mg/dL Est Cr Clr Drug Dosing mL/min Estimated GFR (MDRD) (>60) mL/min BUN/Creatinine Ratio (14-18) Glucose (70-99) mg/dL POC Glucose 185 H (70-99) mg/dL Calcium (8.5-10.1) mg/dL Magnesium (1.8-2.4) mg/dL Total Bilirubin (0.2-1.0) mg/dL AST (15-37) U/L ALT (14-59) U/L Alkaline Phosphatase (46-116) U/L C-Reactive Protein (<1.0) mg/dL Total Protein (6.4-8.2) g/dl Albumin (3.4-5.0) g/dl Globulin gm/dL Albumin/Globulin Ratio (1-2) Urine Color (Yellow) Urine Appearance (Clear) Urine pH (5.0-8.0) Ur Specific [place] (1.005-1.030) Urine Protein (Negative) Urine Glucose (UA) (Negative) Urine Ketones (Negative) Urine Occult Blood (Negative) Urine Nitrite (Negative) Urine Bilirubin (Negative) Urine Urobilinogen (0.2-1.0) Ur Leukocyte Esterase (Negative) Urine RBC (0-5) /hpf Urine WBC (0-5) /hpf Ur Squamous Epith Cells (0-5) /hpf Urine Bacteria (FEW) /hpf Urine Mucus (FEW) /hpf Mycoplasma pneumon IgM Negative (NEGATIVE) MRSA (PCR) Negative 10/22/21 10/22/21 10/22/21 Range/Units 17:46 18:10 21:00 WBC (3.98-10.04) K/mm3 RBC (3.98-5.22) M/mm3 Hgb (11.2-15.7) gm/dl Hct (34.1-44.9) % MCV (79.4-94.8) fl MCH (25.6-32.2) pg MCHC (32.2-35.5) g/dl RDW Std Deviation (36.4-46.3) fL Plt Count (182-369) K/mm3 MPV (9.4-12.3) fl Neut % (Auto) (34.0-71.1) % Lymph % (Auto) (19.3-51.7) % [place] % (Auto) (4.7-12.5) % Eos % (Auto) (0.7-5.8) Baso % (Auto) (0.1-1.2) % Neut # (Auto) (1.56-6.13) K/mm3 Lymph # (Auto) (1.18-3.74) K/mm3 [place] # (Auto) (0.24-0.36) K/mm3 Eos # (Auto) (0.04-0.36) K/mm3 Baso # (Auto) (0.01-0.08) K/mm3 Manual Slide Review Sodium (136-145) mEq/L Potassium (3.5-5.1) mEq/L Chloride (98-107) mEq/L Carbon Dioxide (21-32) mEq/L Anion Gap (5-15) BUN (7-18) mg/dL Creatinine (0.55-1.02) mg/dL Est Cr Clr Drug Dosing mL/min Estimated GFR (MDRD) (>60) mL/min BUN/Creatinine Ratio (14-18) Glucose (70-99) mg/dL POC Glucose 248 H 211 H (70-99) mg/dL Calcium (8.5-10.1) mg/dL Magnesium (1.8-2.4) mg/dL Total Bilirubin (0.2-1.0) mg/dL AST (15-37) U/L ALT (14-59) U/L Alkaline Phosphatase (46-116) U/L C-Reactive Protein (<1.0) mg/dL Total Protein (6.4-8.2) g/dl Albumin (3.4-5.0) g/dl Globulin gm/dL Albumin/Globulin Ratio (1-2) Urine Color Light yellow (Yellow) Urine Appearance Clear (Clear) Urine pH 6.0 (5.0-8.0) Ur Specific [place] 1.020 (1.005-1.030) Urine Protein 2+ H (Negative) Urine Glucose (UA) Trace H (Negative) Urine Ketones Negative (Negative) Urine Occult Blood Trace-lysed H (Negative) Urine Nitrite Negative (Negative) Urine Bilirubin Negative (Negative) Urine Urobilinogen 0.2 (0.2-1.0) Ur Leukocyte Esterase Negative (Negative) Urine RBC 0-5 (0-5) /hpf Urine WBC 0-5 (0-5) /hpf Ur Squamous Epith Cells 0-5 (0-5) /hpf Urine Bacteria Rare (FEW) /hpf Urine Mucus Not seen (FEW) /hpf Mycoplasma pneumon IgM (NEGATIVE) MRSA (PCR) 10/23/21 10/23/21 10/23/21 Range/Units 00:24 05:53 05:53 WBC 6.43 (3.98-10.04) K/mm3 RBC 4.67 (3.98-5.22) M/mm3 Hgb 12.1 (11.2-15.7) gm/dl Hct 40.3 (34.1-44.9) % MCV 86.3 (79.4-94.8) fl MCH 25.9 (25.6-32.2) pg MCHC 30.0 L (32.2-35.5) g/dl RDW Std Deviation 44.7 (36.4-46.3) fL Plt Count 249 (182-369) K/mm3 MPV 10.1 (9.4-12.3) fl Neut % (Auto) 51.5 (34.0-71.1) % Lymph % (Auto) 26.3 (19.3-51.7) % [place] % (Auto) 10.6 (4.7-12.5) % Eos % (Auto) 9.5 H (0.7-5.8) Baso % (Auto) 0.2 (0.1-1.2) % Neut # (Auto) 3.32 (1.56-6.13) K/mm3 Lymph # (Auto) 1.69 (1.18-3.74) K/mm3 [place] # (Auto) 0.68 H (0.24-0.36) K/mm3 Eos # (Auto) 0.61 H (0.04-0.36) K/mm3 Baso # (Auto) 0.01 (0.01-0.08) K/mm3 Manual Slide Review Normal smear Sodium 143 (136-145) mEq/L Potassium 4.6 (3.5-5.1) mEq/L Chloride 103 (98-107) mEq/L Carbon Dioxide 33 H (21-32) mEq/L Anion Gap 11.6 (5-15) BUN 18 (7-18) mg/dL Creatinine 0.9 (0.55-1.02) mg/dL Est Cr Clr Drug Dosing 50.60 mL/min Estimated GFR (MDRD) > 60 (>60) mL/min BUN/Creatinine Ratio 20.0 H (14-18) Glucose 108 H (70-99) mg/dL POC Glucose 135 H (70-99) mg/dL Calcium 9.4 (8.5-10.1) mg/dL Magnesium 2.7 H (1.8-2.4) mg/dL Total Bilirubin 0.4 (0.2-1.0) mg/dL AST 18 (15-37) U/L ALT 29 (14-59) U/L Alkaline Phosphatase 73 (46-116) U/L C-Reactive Protein 6.1 H* (<1.0) mg/dL Total Protein 7.8 (6.4-8.2) g/dl Albumin 3.4 (3.4-5.0) g/dl Globulin 4.4 gm/dL Albumin/Globulin Ratio 0.8 L (1-2) Urine Color (Yellow) Urine Appearance (Clear) Urine pH (5.0-8.0) Ur Specific [place] (1.005-1.030) Urine Protein (Negative) Urine Glucose (UA) (Negative) Urine Ketones (Negative) Urine Occult Blood (Negative) Urine Nitrite (Negative) Urine Bilirubin (Negative) Urine Urobilinogen (0.2-1.0) Ur Leukocyte Esterase (Negative) Urine RBC (0-5) /hpf Urine WBC (0-5) /hpf Ur Squamous Epith Cells (0-5) /hpf Urine Bacteria (FEW) /hpf Urine Mucus (FEW) /hpf Mycoplasma pneumon IgM (NEGATIVE) MRSA (PCR) 10/23/21 Range/Units 06:01 WBC (3.98-10.04) K/mm3 RBC (3.98-5.22) M/mm3 Hgb (11.2-15.7) gm/dl Hct (34.1-44.9) % MCV (79.4-94.8) fl MCH (25.6-32.2) pg MCHC (32.2-35.5) g/dl RDW Std Deviation (36.4-46.3) fL Plt Count (182-369) K/mm3 MPV (9.4-12.3) fl Neut % (Auto) (34.0-71.1) % Lymph % (Auto) (19.3-51.7) % [place] % (Auto) (4.7-12.5) % Eos % (Auto) (0.7-5.8) Baso % (Auto) (0.1-1.2) % Neut # (Auto) (1.56-6.13) K/mm3 Lymph # (Auto) (1.18-3.74) K/mm3 [place] # (Auto) (0.24-0.36) K/mm3 Eos # (Auto) (0.04-0.36) K/mm3 Baso # (Auto) (0.01-0.08) K/mm3 Manual Slide Review Sodium (136-145) mEq/L Potassium (3.5-5.1) mEq/L Chloride (98-107) mEq/L Carbon Dioxide (21-32) mEq/L Anion Gap (5-15) BUN (7-18) mg/dL Creatinine (0.55-1.02) mg/dL Est Cr Clr Drug Dosing mL/min Estimated GFR (MDRD) (>60) mL/min BUN/Creatinine Ratio (14-18) Glucose (70-99) mg/dL POC Glucose 92 (70-99) mg/dL Calcium (8.5-10.1) mg/dL Magnesium (1.8-2.4) mg/dL Total Bilirubin (0.2-1.0) mg/dL AST (15-37) U/L ALT (14-59) U/L Alkaline Phosphatase (46-116) U/L C-Reactive Protein (<1.0) mg/dL Total Protein (6.4-8.2) g/dl Albumin (3.4-5.0) g/dl Globulin gm/dL Albumin/Globulin Ratio (1-2) Urine Color (Yellow) Urine Appearance (Clear) Urine pH (5.0-8.0) Ur Specific [place] (1.005-1.030) Urine Protein (Negative) Urine Glucose (UA) (Negative) Urine Ketones (Negative) Urine Occult Blood (Negative) Urine Nitrite (Negative) Urine Bilirubin (Negative) Urine Urobilinogen (0.2-1.0) Ur Leukocyte Esterase (Negative) Urine RBC (0-5) /hpf Urine WBC (0-5) /hpf Ur Squamous Epith Cells (0-5) /hpf Urine Bacteria (FEW) /hpf Urine Mucus (FEW) /hpf Mycoplasma pneumon IgM (NEGATIVE) MRSA (PCR) Med Orders - Current: Current Medications Acetaminophen (Acetaminophen 325 Mg Tab) 650 mg PO Q4H PRN PRN Reason: Pain (Mild 1-3)/fever Last Admin: 10/23/21 09:29 Dose: 650 mg Documented by: Albuterol (Albuterol 0.083% 2.5 Mg/3 Ml Neb Soln) 2.5 mg NEB Q2H PRN PRN Reason: Shortness Of Breath/wheezing Albuterol/Ipratropium (Albuterol/Ipratropium 3.0-0.5 Mg/3 Ml Neb Soln) 3 ml NEB QIDRT [facility] Last Admin: 10/23/21 09:09 Dose: 3 ml Documented by: Alprazolam (Alprazolam 0.5 Mg Tab) 0.5 mg PO BEDTIME PRN PRN Reason: Anxiety Last Admin: 10/23/21 09:03 Dose: 0.5 mg Documented by: Ascorbic Acid (Ascorbic Acid 500 Mg Tab) 500 mg PO TID [facility] Last Admin: 10/23/21 08:41 Dose: 500 mg Documented by: Atorvastatin Calcium (Atorvastatin 40 Mg Tab) 40 mg PO BEDTIME [facility] Last Admin: 10/22/21 21:10 Dose: 40 mg Documented by: Budesonide (Budesonide 0.5 Mg/2 Ml Neb Susp) 0.5 mg INH TID@0600,1600,2100 [facility] Last Admin: 10/23/21 06:14 Dose: 0.5 mg Documented by: Cetirizine HCl (Cetirizine 10 Mg Tab) 10 mg PO DAILY [facility] Last Admin: 10/23/21 08:40 Dose: 10 mg Documented by: Clopidogrel Bisulfate (Clopidogrel 75 Mg Tab) 75 mg PO DAILY [facility] Last Admin: 10/23/21 08:42 Dose: 75 mg Documented by: Docusate Sodium (Docusate Sodium 100 Mg Cap) 200 mg PO DAILY [facility] Last Admin: 10/23/21 08:56 Dose: Not Given Documented by: Enoxaparin Sodium (Enoxaparin 40 Mg/0.4 Ml Syringe) 40 mg SUBCUT DAILY [facility] Last Admin: 10/23/21 09:30 Dose: 40 mg Documented by: Famotidine (Famotidine 20 Mg Tab) 20 mg PO BID [facility] Last Admin: 10/23/21 08:56 Dose: 20 mg Documented by: Ferrous Sulfate (Ferrous Sulfate 324 Mg Tab.Ec) 324 mg PO TID [facility] Last Admin: 10/23/21 08:42 Dose: 324 mg Documented by: Furosemide (Furosemide 20 Mg Tab) 20 mg PO DAILY [facility] Last Admin: 10/23/21 08:41 Dose: 20 mg Documented by: Guaifenesin (Guaifenesin 600 Mg Tab.Er) 600 mg PO BID [facility] Last Admin: 10/23/21 08:41 Dose: 600 mg Documented by: Sodium Chloride (Normal Saline) 100 mls @ 75 mls/hr IV ASDIRECTED [facility] Last Admin: 10/22/21 08:42 Dose: 75 mls/hr Documented by: Azithromycin 500 mg/ Sodium (Chloride) 250 mls @ 250 mls/hr IV Q24H [facility] Last Admin: 10/23/21 08:56 Dose: 250 mls/hr Documented by: Ceftriaxone Sodium 2 gm/ (Sodium Chloride) 100 mls @ 200 mls/hr IV Q24H [facility] Last Admin: 10/23/21 08:44 Dose: 200 mls/hr Documented by: Insulin Glargine (Insulin Glargine,Hum.Rec.Anlog 100 Unit/Ml 3 Ml Pen) 72 unit SUBCUT BEDTIME [facility] Last Admin: 10/22/21 22:01 Dose: 72 units Documented by: Insulin Human Lispro (Insulin Lispro 100 Unit/Ml 3 Ml Kwikpen) 0 unit SUBCUT WITHMEALSANDBED [facility]; Protocol Last Admin: 10/23/21 08:26 Dose: Not Given Documented by: Magnesium Hydroxide (Magnesium Hydroxide 400 Mg/5 Ml Susp 30 Ml Cup) 30 ml PO Q12H PRN PRN Reason: Constipation Methylprednisolone Sodium Succinate (Methylprednisolone Sodium Succinate 40 Mg/1 Ml Sdv) 60 mg IVPUSH DAILY [facility] Last Admin: 10/23/21 08:44 Dose: 60 mg Documented by: Montelukast Sodium (Montelukast 10 Mg Tab) 10 mg PO BEDTIME [facility] Last Admin: 10/22/21 21:07 Dose: 10 mg Documented by: Ondansetron HCl (Ondansetron 4 Mg/2 Ml Sdv) 4 mg IV Q6H PRN PRN Reason: Nausea/Vomiting Clorazepate 3.75 Mg (Tablet) 0 each PO BID [facility] Last Admin: 10/23/21 08:43 Dose: 1 each Documented by: Roflumilast [ Daliresp] 500 Mcg Tablet 0 each PO DAILY [facility] Last Admin: 10/23/21 08:43 Dose: 1 each Documented by: Fluticasone/Umeclidin/Vilanter 1 Each Blst.W.Dev 0 each INH 1000 [facility] Potassium Chloride (Potassium Chloride 10 Meq Tab.Er) 10 meq PO DAILY [facility] Last Admin: 10/23/21 08:41 Dose: 10 meq Documented by: Sodium Chloride (Sodium Chloride 0.9% 10 Ml Syringe) 10 ml FLUSH ASDIRECTED PRN PRN Reason: Keep Vein Open Last Admin: 10/22/21 06:52 Dose: 10 ml Documented by: Sodium Chloride (Sodium Chloride 0.9% 10 Ml Syringe) 10 ml FLUSH ONETIME PRN PRN Reason: IV FLUSH Last Admin: 10/22/21 08:43 Dose: 10 ml Documented by: Discontinued Medications Albuterol (Albuterol 0.083% 2.5 Mg/3 Ml Neb Soln) Confirm Administered Dose 10 mg .ROUTE .STK-MED ONE Stop: 10/22/21 07:14 Last Admin: 10/22/21 07:20 Dose: 10 mg Documented by: Albuterol (Albuterol 0.083% 2.5 Mg/3 Ml Neb Soln) 10 mg NEB ONETIME ONE Stop: 10/22/21 07:21 Last Admin: 10/22/21 07:20 Dose: 10 mg Documented by: Albuterol (Albuterol 0.083% 2.5 Mg/3 Ml Neb Soln) 2.5 mg NEB ONETIME ONE Stop: 10/22/21 13:29 Last Admin: 10/22/21 13:38 Dose: 2.5 mg Documented by: Albuterol/Ipratropium (Albuterol/Ipratropium 3.0-0.5 Mg/3 Ml Neb Soln) 3 ml NEB ONETIME ONE Stop: 10/22/21 06:46 Last Admin: 10/22/21 06:55 Dose: 3 ml Documented by: Alprazolam (Alprazolam 0.5 Mg Tab) 0.5 mg PO DAILY PRN PRN Reason: flying Budesonide (Budesonide 0.25 Mg/2 Ml Neb Susp) mg INH TID [facility] Budesonide (Budesonide 0.5 Mg/2 Ml Neb Susp) Confirm Administered Dose 0.5 mg .ROUTE .STK-MED ONE Stop: 10/22/21 15:28 Last Admin: 10/22/21 15:32 Dose: Not Given Documented by: Famotidine (Famotidine 20 Mg Tab) 20 mg PO ONETIME ONE Stop: 10/22/21 21:01 Last Admin: 10/22/21 21:07 Dose: 20 mg Documented by: Magnesium Sulfate 2 gm/ Premix 50 mls @ 25 mls/hr IV ONETIME ONE Stop: 10/22/21 09:07 Last Admin: 10/22/21 07:21 Dose: 25 mls/hr Documented by: Levofloxacin/Dextrose 750 mg/ (Premix) 150 mls @ 100 mls/hr IV ONETIME ONE Stop: 10/22/21 08:42 Last Admin: 10/22/21 09:13 Dose: Not Given Documented by: Sodium Chloride (Normal Saline) 500 mls @ 1,000 mls/hr IV .BOLUS ONE Stop: 10/22/21 07:43 Last Admin: 10/22/21 07:50 Dose: 1,000 mls/hr Documented by: Azithromycin 500 mg/ Sodium (Chloride) 250 mls @ 250 mls/hr IV ONETIME ONE Stop: 10/22/21 08:51 Last Admin: 10/22/21 09:41 Dose: 250 mls/hr Documented by: Ceftriaxone Sodium 1 gm/ (Sodium Chloride) 100 mls @ 200 mls/hr IV ONETIME ONE Stop: 10/22/21 08:21 Ceftriaxone Sodium 1 gm/ (Sodium Chloride) 100 mls @ 200 mls/hr IV ONETIME ONE Stop: 10/22/21 08:32 Last Admin: 10/22/21 08:48 Dose: 200 mls/hr Documented by: Insulin Glargine (Insulin Glarg,Human.Rec.Analog 100 Unit/Ml) 72 unit SUBCUT BEDTIME [facility] Last Admin: 10/22/21 21:51 Dose: Not Given Documented by: Iopamidol (Iopamidol 755 Mg/Ml 100 Ml Bottle) 100 ml IVPUSH ONETIME ONE Stop: 10/22/21 08:24 Last Admin: 10/22/21 08:42 Dose: 100 ml Documented by: Lorazepam (Lorazepam 2 Mg/Ml Sdv) 0.5 mg IVPUSH ONETIME ONE Stop: 10/22/21 08:10 Last Admin: 10/22/21 08:26 Dose: 0.5 mg Documented by: Methylprednisolone Sodium Succinate (Methylprednisolone Sodium Succinate 125 Mg/2 Ml Sdv) 125 mg IVPUSH ONETIME ONE Stop: 10/22/21 07:09 Last Admin: 10/22/21 07:17 Dose: 125 mg Documented by: Non-Formulary Medication (Vitamin D3-50.) 50,000 units PO ASDIRECTED [facility] Fluticasone/Umeclidin/Vilanter 1 Each Blst.W.Dev 0 each INH DAILY [facility] Patient Own Medication (Patient's Own Medication 1 Each) 1 each INH DAILY@1000 [facility] Senna/Docusate Sodium (Docusate Sodium/Sennosides 50-8.6 Mg Tab) 1 tab PO BID PRN PRN Reason: Constipation - Exam Physical Findings Comments:: General: Alert, Oriented, Cooperative, Mild Distress (Acutely short of breath) HEENT: Conjunctiva Clear, EACs Clear, Hearing Intact, Mucosa Moist & [place], Posterior Pharynx Clear, PERRLA Neck: Supple, Trachea Midline Lungs: Rhonchi, Wheezing. No: Normal Respiratory Effort (Tachypnea) Cardiovascular: Regular Rhythm, Tachycardia GI/Abdominal Exam: Normal Bowel Sounds, Soft, Non-Tender, No Distention (Female) Exam: Deferred Rectal (Female) Exam: Deferred Back Exam: Normal Inspection, Full Range of Motion, CVA Tenderness (L), Paraspinal Tenderness. No: CVA Tenderness (R) Extremities: Normal Inspection, Normal Range of Motion, Non-Tender, No Pedal Edema, Normal Capillary Refill Peripheral Pulses: 4+: Radial (L), Radial (R), Dorsalis Pedis (L), Dorsalis Pedis (R) Skin: Warm, Dry, Intact Neurological: Cranial Nerves Intact (Grossly) Neuro Extensive - Mental Status: Alert, Oriented x3, Normal Mood/Affect - Patient Data Lab Results Last 24 hrs: Laboratory Results - last 24 hr 10/22/21 10/22/21 10/22/21 Range/Units 07:20 13:58 16:50 WBC (3.98-10.04) K/mm3 RBC (3.98-5.22) M/mm3 Hgb (11.2-15.7) gm/dl Hct (34.1-44.9) % MCV (79.4-94.8) fl MCH (25.6-32.2) pg MCHC (32.2-35.5) g/dl RDW Std Deviation (36.4-46.3) fL Plt Count (182-369) K/mm3 MPV (9.4-12.3) fl Neut % (Auto) (34.0-71.1) % Lymph % (Auto) (19.3-51.7) % [place] % (Auto) (4.7-12.5) % Eos % (Auto) (0.7-5.8) Baso % (Auto) (0.1-1.2) % Neut # (Auto) (1.56-6.13) K/mm3 Lymph # (Auto) (1.18-3.74) K/mm3 [place] # (Auto) (0.24-0.36) K/mm3 Eos # (Auto) (0.04-0.36) K/mm3 Baso # (Auto) (0.01-0.08) K/mm3 Manual Slide Review Sodium (136-145) mEq/L Potassium (3.5-5.1) mEq/L Chloride (98-107) mEq/L Carbon Dioxide (21-32) mEq/L Anion Gap (5-15) BUN (7-18) mg/dL Creatinine (0.55-1.02) mg/dL Est Cr Clr Drug Dosing mL/min Estimated GFR (MDRD) (>60) mL/min BUN/Creatinine Ratio (14-18) Glucose (70-99) mg/dL POC Glucose 185 H (70-99) mg/dL Calcium (8.5-10.1) mg/dL Magnesium (1.8-2.4) mg/dL Total Bilirubin (0.2-1.0) mg/dL AST (15-37) U/L ALT (14-59) U/L Alkaline Phosphatase (46-116) U/L C-Reactive Protein (<1.0) mg/dL Total Protein (6.4-8.2) g/dl Albumin (3.4-5.0) g/dl Globulin gm/dL Albumin/Globulin Ratio (1-2) Urine Color (Yellow) Urine Appearance (Clear) Urine pH (5.0-8.0) Ur Specific [place] (1.005-1.030) Urine Protein (Negative) Urine Glucose (UA) (Negative) Urine Ketones (Negative) Urine Occult Blood (Negative) Urine Nitrite (Negative) Urine Bilirubin (Negative) Urine Urobilinogen (0.2-1.0) Ur Leukocyte Esterase (Negative) Urine RBC (0-5) /hpf Urine WBC (0-5) /hpf Ur Squamous Epith Cells (0-5) /hpf Urine Bacteria (FEW) /hpf Urine Mucus (FEW) /hpf Mycoplasma pneumon IgM Negative (NEGATIVE) MRSA (PCR) Negative 10/22/21 10/22/21 10/22/21 Range/Units 17:46 18:10 21:00 WBC (3.98-10.04) K/mm3 RBC (3.98-5.22) M/mm3 Hgb (11.2-15.7) gm/dl Hct (34.1-44.9) % MCV (79.4-94.8) fl MCH (25.6-32.2) pg MCHC (32.2-35.5) g/dl RDW Std Deviation (36.4-46.3) fL Plt Count (182-369) K/mm3 MPV (9.4-12.3) fl Neut % (Auto) (34.0-71.1) % Lymph % (Auto) (19.3-51.7) % [place] % (Auto) (4.7-12.5) % Eos % (Auto) (0.7-5.8) Baso % (Auto) (0.1-1.2) % Neut # (Auto) (1.56-6.13) K/mm3 Lymph # (Auto) (1.18-3.74) K/mm3 [place] # (Auto) (0.24-0.36) K/mm3 Eos # (Auto) (0.04-0.36) K/mm3 Baso # (Auto) (0.01-0.08) K/mm3 Manual Slide Review Sodium (136-145) mEq/L Potassium (3.5-5.1) mEq/L Chloride (98-107) mEq/L Carbon Dioxide (21-32) mEq/L Anion Gap (5-15) BUN (7-18) mg/dL Creatinine (0.55-1.02) mg/dL Est Cr Clr Drug Dosing mL/min Estimated GFR (MDRD) (>60) mL/min BUN/Creatinine Ratio (14-18) Glucose (70-99) mg/dL POC Glucose 248 H 211 H (70-99) mg/dL Calcium (8.5-10.1) mg/dL Magnesium (1.8-2.4) mg/dL Total Bilirubin (0.2-1.0) mg/dL AST (15-37) U/L ALT (14-59) U/L Alkaline Phosphatase (46-116) U/L C-Reactive Protein (<1.0) mg/dL Total Protein (6.4-8.2) g/dl Albumin (3.4-5.0) g/dl Globulin gm/dL Albumin/Globulin Ratio (1-2) Urine Color Light yellow (Yellow) Urine Appearance Clear (Clear) Urine pH 6.0 (5.0-8.0) Ur Specific [place] 1.020 (1.005-1.030) Urine Protein 2+ H (Negative) Urine Glucose (UA) Trace H (Negative) Urine Ketones Negative (Negative) Urine Occult Blood Trace-lysed H (Negative) Urine Nitrite Negative (Negative) Urine Bilirubin Negative (Negative) Urine Urobilinogen 0.2 (0.2-1.0) Ur Leukocyte Esterase Negative (Negative) Urine RBC 0-5 (0-5) /hpf Urine WBC 0-5 (0-5) /hpf Ur Squamous Epith Cells 0-5 (0-5) /hpf Urine Bacteria Rare (FEW) /hpf Urine Mucus Not seen (FEW) /hpf Mycoplasma pneumon IgM (NEGATIVE) MRSA (PCR) 10/23/21 10/23/21 10/23/21 Range/Units 00:24 05:53 05:53 WBC 6.43 (3.98-10.04) K/mm3 RBC 4.67 (3.98-5.22) M/mm3 Hgb 12.1 (11.2-15.7) gm/dl Hct 40.3 (34.1-44.9) % MCV 86.3 (79.4-94.8) fl MCH 25.9 (25.6-32.2) pg MCHC 30.0 L (32.2-35.5) g/dl RDW Std Deviation 44.7 (36.4-46.3) fL Plt Count 249 (182-369) K/mm3 MPV 10.1 (9.4-12.3) fl Neut % (Auto) 51.5 (34.0-71.1) % Lymph % (Auto) 26.3 (19.3-51.7) % [place] % (Auto) 10.6 (4.7-12.5) % Eos % (Auto) 9.5 H (0.7-5.8) Baso % (Auto) 0.2 (0.1-1.2) % Neut # (Auto) 3.32 (1.56-6.13) K/mm3 Lymph # (Auto) 1.69 (1.18-3.74) K/mm3 [place] # (Auto) 0.68 H (0.24-0.36) K/mm3 Eos # (Auto) 0.61 H (0.04-0.36) K/mm3 Baso # (Auto) 0.01 (0.01-0.08) K/mm3 Manual Slide Review Normal smear Sodium 143 (136-145) mEq/L Potassium 4.6 (3.5-5.1) mEq/L Chloride 103 (98-107) mEq/L Carbon Dioxide 33 H (21-32) mEq/L Anion Gap 11.6 (5-15) BUN 18 (7-18) mg/dL Creatinine 0.9 (0.55-1.02) mg/dL Est Cr Clr Drug Dosing 50.60 mL/min Estimated GFR (MDRD) > 60 (>60) mL/min BUN/Creatinine Ratio 20.0 H (14-18) Glucose 108 H (70-99) mg/dL POC Glucose 135 H (70-99) mg/dL Calcium 9.4 (8.5-10.1) mg/dL Magnesium 2.7 H (1.8-2.4) mg/dL Total Bilirubin 0.4 (0.2-1.0) mg/dL AST 18 (15-37) U/L ALT 29 (14-59) U/L Alkaline Phosphatase 73 (46-116) U/L C-Reactive Protein 6.1 H* (<1.0) mg/dL Total Protein 7.8 (6.4-8.2) g/dl Albumin 3.4 (3.4-5.0) g/dl Globulin 4.4 gm/dL Albumin/Globulin Ratio 0.8 L (1-2) Urine Color (Yellow) Urine Appearance (Clear) Urine pH (5.0-8.0) Ur Specific [place] (1.005-1.030) Urine Protein (Negative) Urine Glucose (UA) (Negative) Urine Ketones (Negative) Urine Occult Blood (Negative) Urine Nitrite (Negative) Urine Bilirubin (Negative) Urine Urobilinogen (0.2-1.0) Ur Leukocyte Esterase (Negative) Urine RBC (0-5) /hpf Urine WBC (0-5) /hpf Ur Squamous Epith Cells (0-5) /hpf Urine Bacteria (FEW) /hpf Urine Mucus (FEW) /hpf Mycoplasma pneumon IgM (NEGATIVE) MRSA (PCR) 10/23/21 Range/Units 06:01 WBC (3.98-10.04) K/mm3 RBC (3.98-5.22) M/mm3 Hgb (11.2-15.7) gm/dl Hct (34.1-44.9) % MCV (79.4-94.8) fl MCH (25.6-32.2) pg MCHC (32.2-35.5) g/dl RDW Std Deviation (36.4-46.3) fL Plt Count (182-369) K/mm3 MPV (9.4-12.3) fl Neut % (Auto) (34.0-71.1) % Lymph % (Auto) (19.3-51.7) % [place] % (Auto) (4.7-12.5) % Eos % (Auto) (0.7-5.8) Baso % (Auto) (0.1-1.2) % Neut # (Auto) (1.56-6.13) K/mm3 Lymph # (Auto) (1.18-3.74) K/mm3 [place] # (Auto) (0.24-0.36) K/mm3 Eos # (Auto) (0.04-0.36) K/mm3 Baso # (Auto) (0.01-0.08) K/mm3 Manual Slide Review Sodium (136-145) mEq/L Potassium (3.5-5.1) mEq/L Chloride (98-107) mEq/L Carbon Dioxide (21-32) mEq/L Anion Gap (5-15) BUN (7-18) mg/dL Creatinine (0.55-1.02) mg/dL Est Cr Clr Drug Dosing mL/min Estimated GFR (MDRD) (>60) mL/min BUN/Creatinine Ratio (14-18) Glucose (70-99) mg/dL POC Glucose 92 (70-99) mg/dL Calcium (8.5-10.1) mg/dL Magnesium (1.8-2.4) mg/dL Total Bilirubin (0.2-1.0) mg/dL AST (15-37) U/L ALT (14-59) U/L Alkaline Phosphatase (46-116) U/L C-Reactive Protein (<1.0) mg/dL Total Protein (6.4-8.2) g/dl Albumin (3.4-5.0) g/dl Globulin gm/dL Albumin/Globulin Ratio (1-2) Urine Color (Yellow) Urine Appearance (Clear) Urine pH (5.0-8.0) Ur Specific [place] (1.005-1.030) Urine Protein (Negative) Urine Glucose (UA) (Negative) Urine Ketones (Negative) Urine Occult Blood (Negative) Urine Nitrite (Negative) Urine Bilirubin (Negative) Urine Urobilinogen (0.2-1.0) Ur Leukocyte Esterase (Negative) Urine RBC (0-5) /hpf Urine WBC (0-5) /hpf Ur Squamous Epith Cells (0-5) /hpf Urine Bacteria (FEW) /hpf Urine Mucus (FEW) /hpf Mycoplasma pneumon IgM (NEGATIVE) MRSA (PCR) Result Diagrams: 10/23/21 05:53 10/23/21 05:53 Sepsis Event Note - Evaluation Sepsis Screening Result: Sepsis Risk - Focused Exam Vital Signs: Vital Signs Temp Pulse Resp BP Pulse Ox Pulse Ox 10/23/21 09:10 99 10/23/21 09:01 36.1 C 120 H 17 130/63 96 10/23/21 06:14 94 L 10/23/21 04:00 36.0 C L 115 H 23 H 157/54 H 94 L 10/23/21 00:00 35.9 C L 89 23 H 144/66 H 98 - Problem List Review Problem List Initiated/Reviewed/Updated: Yes - My Orders Last 24 Hours: My Active Orders 10/22/21 20:23 ALPRAZolam [Xanax] 0.5 mg PO BEDTIME PRN 10/22/21 22:00 Insulin Glargine,Hum.Rec.Anlog [Semglee Pen] 72 unit SUBCUT BEDTIME 10/23/21 09:15 Enoxaparin [Lovenox] 40 mg SUBCUT DAILY - Plan Plan:: Pneumonia Sepsis Recurrent pneumonia Asthma Chronic respiratory failure with hypoxia, on home oxygen therapy Acute respiratory failure with hypoxia COPD exacerbation Former smoker Generalized weakness * Oxygen as needed to keep saturations greater than 88%. Patient chronically on 2 L of oxygen * BiPAP as needed * 2 g Rocephin daily * Discontinued azithromycin daily * Influenza A and B negative * Covid negative * MRSA negative * Blood cultures no growth * mycoplasma pneumonia negative * Procalcitonin pending * Troponin < 0.017 * BNP 121 * Continue home respiratory medications * Consult respiratory therapy * I-S/Acapella * 60 mg daily methylprednisolone IV push -hold home steroid * 4 times daily scheduled DuoNebs * As needed albuterol nebulizers * Droplet precautions * Repeat chest x-ray as needed * Sputum culture if able to produce * Continuous pulse oximetry * Telemetry * Sepsis Screen: Suspected pneumonia, tachycardia, tachypnea, respiratory failure requiring BiPAP: Meets criteria * PT/OC * CM/SW consultation Type II diabetes mellitus * 4 times daily before meals and bedtime blood glucose checks * Hold home Metformin * Continue home long-acting insulin * Hold home weekly insulin * Medium intensity sliding scale insulin * Consistent carbohydrate diet * Anticipate blood glucose rise due to steroids Lung nodule * PCP follow-up * Radiology recommending repeat CT scan of chest without contrast in 4 months History of venous thromboembolism * No acute concerns * Continue home Plavix HLD (hyperlipidemia) * Acute concerns * Continue home statin EVELYN (Iron deficiency anemia) Chronic GI bleed * Per patient her employment agency manager will not sign off on a colonoscopy due to concerns of her respiratory status * Continue home iron and vitamin C * Monitor labs History of renal stent * No acute concerns Anxiety * No acute concerns * Continue home antianxiety meds Vitamin D deficiency Iron deficiency * No acute concerns * Continue home supplementation Papilloma of right breast * No acute concerns Recurrent UTI * No acute concerns Elevation of D-dimer * 0.98. Based on her age, this would be a mild elevation. * Wells' Criteria for Pulmonary Embolism: 1.5 points. Low risk group: 1.3% chance of PE in an ED population. * Closely monitor Code status: CPR only PCP: Silvia Feliciano NP [facility] Prophylaxis: Home plavix Disposition: Admitted to the ICU as a MedSurg overflow on telemetry for management of pneumonia in the presence of multiple chronic lung conditions and sepsis. Likely length of stay 3 to 4 days. Prognosis: good.
[2021-10-23] MEDS: atorvaSTATin 40 MG Tab PO SCH (20:39)
[2021-10-23] MEDS: Montelukast 10 MG Tab PO SCH (20:39)
[2021-10-23] MEDS: Insulin Glargine,Hum.Rec.Anlog 100 UNIT/ML 3 ML Pen SUBCUT SCH (20:43)
[2021-10-23] MEDS ORDERED: Insulin Glargine,Hum.Rec.Anlog 100 UNIT/ML 3 ML Pen SUBCUT SCH (21:00)
[2021-10-24] MEDS: Acetaminophen 325 MG Tab PO PRN ×3 (03:46→16:27)
[2021-10-24] MEDS: Albuterol/Ipratropium 3.0-0.5 MG/3 ML Neb Soln NEB SCH ×4 (06:32→20:53)
[2021-10-24] MEDS: Budesonide 0.5 MG/2 ML Neb Susp INH SCH ×3 (06:32→20:53)
[2021-10-24] MEDS: Insulin Lispro 100 Unit/ML 3 ML KwikPen SUBCUT SCH ×4 (06:33→20:50)
[2021-10-24] MEDS: methylPREDNISolone Sodium Succinate 40 MG/1 ML SDV IVPUSH SCH (08:10)
[2021-10-24] MEDS: Ascorbic Acid 500 MG Tab PO SCH ×3 (08:11→20:43)
[2021-10-24] MEDS: ALPRAZolam 0.5 MG Tab PO PRN ×3 (08:11→21:36)
[2021-10-24] MEDS: Furosemide 20 MG Tab PO SCH (08:11)
[2021-10-24] MEDS: guaiFENesin 600 MG Tab.ER PO SCH ×2 (08:11→20:43)
[2021-10-24] MEDS: Potassium Chloride 10 MEQ Tab.ER PO SCH (08:11)
[2021-10-24] MEDS: Clopidogrel 75 MG Tab PO SCH (08:11)
[2021-10-24] MEDS: Cetirizine 10 MG Tab PO SCH (08:11)
[2021-10-24] MEDS: Famotidine 20 MG Tab PO SCH ×2 (08:11→20:43)
[2021-10-24] MEDS: Ferrous Sulfate 324 MG Tab.EC PO SCH ×3 (08:12→20:43)
[2021-10-24] MEDS: Enoxaparin 40 MG/0.4 ML Syringe SUBCUT SCH (08:12)
[2021-10-24] MEDS: Roflumilast [Daliresp] 500 MCG Tablet PO SCH (08:12)
[2021-10-24] MEDS: cefTRIAXone 2 GM in Sodium Chloride 0.9% 100 ML IV SCH (08:13)
[2021-10-24] MEDS: Docusate Sodium 100 MG Cap PO SCH (09:17)
--- NOTE | 2021-10-24 14:26 | PCM.PN ---
- General Info Date of Service: 10/24/21 Admission Dx/Problem (Free Text): Admission Diagnosis/Problem Admission Diagnosis/Problem Pneumonia Subjective Update: This is a 61-year-old female who presents to our ED on 10/22/2021 with dyspnea. She is on home oxygen due to history of COPD and has reportedly been on this for the past 14 years. Patient still has shortness of breath. But she is feeling better. Denies fever or chills. She still has a tachycardia and tachypnea. Improving to 2-3 L oxygen. Blood pressure is high at times - Review of Systems Systems Review Comment:: General: Reports: Malaise, Weakness, Fatigue. Denies: Fever, Chills HEENT: Reports: No Symptoms. Denies: Headaches, Sore Throat Pulmonary: Reports: Shortness of Breath (Acute on chronic), Wheezing (Acute on chronic), Cough (Acute on chronic), Sputum (Acute on chronic). Denies: Pleuritic Chest Pain, Hemoptysis Cardiovascular: Reports: Dyspnea on Exertion (Acute on chronic). Denies: Chest Pain, Palpitations, Orthopnea, Edema, Lightheadedness, Syncope Gastrointestinal: Reports: No Symptoms. Denies: Abdominal Pain, Constipation, Diarrhea, Nausea, Vomiting Genitourinary: Reports: Burning, Pain. Denies: Frequency, Urgency Musculoskeletal: Reports: Back Pain Skin: Reports: No Symptoms. Denies: Cyanosis Psychiatric: Reports: No Symptoms. Denies: Confusion Neurological: Reports: Difficulty Walking, Weakness. Denies: Confusion, Dizziness, Headache, Numbness, Pre-Existing Deficit, Seizure, Tingling, Trouble Speaking, Gait Disturbance Hematologic/Lymphatic: Reports: No Symptoms Immunologic: Reports: No Symptoms - Patient Data Vitals - Most Recent: Last Vital Signs Temp 35.7 C L 10/24/21 12:00 Pulse 127 H 10/23/21 16:45 Resp 21 H 10/24/21 12:00 BP 156/75 H 10/24/21 04:00 Pulse Ox 94 L 10/24/21 12:00 Weight - Most Recent: 74.162 kg I&O - Last 24 Hours: Intake & Output 10/23/21 10/24/21 10/24/21 22:59 06:59 14:59 Intake Total 850 500 Balance 850 500 Lab Results Last 24 Hours: Laboratory Results - last 24 hr 10/22/21 10/23/21 10/23/21 Range/Units 07:20 17:11 20:42 WBC (3.98-10.04) K/mm3 RBC (3.98-5.22) M/mm3 Hgb (11.2-15.7) gm/dl Hct (34.1-44.9) % MCV (79.4-94.8) fl MCH (25.6-32.2) pg MCHC (32.2-35.5) g/dl RDW Std Deviation (36.4-46.3) fL Plt Count (182-369) K/mm3 MPV (9.4-12.3) fl Neut % (Auto) (34.0-71.1) % Lymph % (Auto) (19.3-51.7) % [place] % (Auto) (4.7-12.5) % Eos % (Auto) (0.7-5.8) Baso % (Auto) (0.1-1.2) % Neut # (Auto) (1.56-6.13) K/mm3 Lymph # (Auto) (1.18-3.74) K/mm3 [place] # (Auto) (0.24-0.36) K/mm3 Eos # (Auto) (0.04-0.36) K/mm3 Baso # (Auto) (0.01-0.08) K/mm3 Manual Slide Review Sodium (136-145) mEq/L Potassium (3.5-5.1) mEq/L Chloride (98-107) mEq/L Carbon Dioxide (21-32) mEq/L Anion Gap (5-15) BUN (7-18) mg/dL Creatinine (0.55-1.02) mg/dL Est Cr Clr Drug Dosing mL/min Estimated GFR (MDRD) (>60) mL/min BUN/Creatinine Ratio (14-18) Glucose (70-99) mg/dL POC Glucose 215 H 123 H (70-99) mg/dL Calcium (8.5-10.1) mg/dL Magnesium (1.8-2.4) mg/dL Total Bilirubin (0.2-1.0) mg/dL AST (15-37) U/L ALT (14-59) U/L Alkaline Phosphatase (46-116) U/L C-Reactive Protein (<1.0) mg/dL Total Protein (6.4-8.2) g/dl Albumin (3.4-5.0) g/dl Globulin gm/dL Albumin/Globulin Ratio (1-2) Procalcitonin 0.12 H ng/mL 10/24/21 10/24/21 10/24/21 Range/Units 04:52 04:52 06:29 WBC 6.16 (3.98-10.04) K/mm3 RBC 4.34 (3.98-5.22) M/mm3 Hgb 11.2 (11.2-15.7) gm/dl Hct 38.0 (34.1-44.9) % MCV 87.6 (79.4-94.8) fl MCH 25.8 (25.6-32.2) pg MCHC 29.5 L (32.2-35.5) g/dl RDW Std Deviation 45.5 (36.4-46.3) fL Plt Count 267 (182-369) K/mm3 MPV 10.1 (9.4-12.3) fl Neut % (Auto) 55.0 (34.0-71.1) % Lymph % (Auto) 33.4 (19.3-51.7) % [place] % (Auto) 8.8 (4.7-12.5) % Eos % (Auto) 0 L (0.7-5.8) Baso % (Auto) 0.5 (0.1-1.2) % Neut # (Auto) 3.39 (1.56-6.13) K/mm3 Lymph # (Auto) 2.06 (1.18-3.74) K/mm3 [place] # (Auto) 0.54 H (0.24-0.36) K/mm3 Eos # (Auto) 0.00 L (0.04-0.36) K/mm3 Baso # (Auto) 0.03 (0.01-0.08) K/mm3 Manual Slide Review Normal smear Sodium 144 (136-145) mEq/L Potassium 4.6 (3.5-5.1) mEq/L Chloride 105 (98-107) mEq/L Carbon Dioxide 35 H (21-32) mEq/L Anion Gap 8.6 (5-15) BUN 17 (7-18) mg/dL Creatinine 0.7 (0.55-1.02) mg/dL Est Cr Clr Drug Dosing 65.06 mL/min Estimated GFR (MDRD) > 60 (>60) mL/min BUN/Creatinine Ratio 24.3 H (14-18) Glucose 89 (70-99) mg/dL POC Glucose 73 (70-99) mg/dL Calcium 9.4 (8.5-10.1) mg/dL Magnesium 2.5 H (1.8-2.4) mg/dL Total Bilirubin 0.4 (0.2-1.0) mg/dL AST 17 (15-37) U/L ALT 31 (14-59) U/L Alkaline Phosphatase 67 (46-116) U/L C-Reactive Protein 2.6 H* (<1.0) mg/dL Total Protein 6.8 (6.4-8.2) g/dl Albumin 3.1 L (3.4-5.0) g/dl Globulin 3.7 gm/dL Albumin/Globulin Ratio 0.8 L (1-2) Procalcitonin ng/mL 10/24/21 Range/Units 11:14 WBC (3.98-10.04) K/mm3 RBC (3.98-5.22) M/mm3 Hgb (11.2-15.7) gm/dl Hct (34.1-44.9) % MCV (79.4-94.8) fl MCH (25.6-32.2) pg MCHC (32.2-35.5) g/dl RDW Std Deviation (36.4-46.3) fL Plt Count (182-369) K/mm3 MPV (9.4-12.3) fl Neut % (Auto) (34.0-71.1) % Lymph % (Auto) (19.3-51.7) % [place] % (Auto) (4.7-12.5) % Eos % (Auto) (0.7-5.8) Baso % (Auto) (0.1-1.2) % Neut # (Auto) (1.56-6.13) K/mm3 Lymph # (Auto) (1.18-3.74) K/mm3 [place] # (Auto) (0.24-0.36) K/mm3 Eos # (Auto) (0.04-0.36) K/mm3 Baso # (Auto) (0.01-0.08) K/mm3 Manual Slide Review Sodium (136-145) mEq/L Potassium (3.5-5.1) mEq/L Chloride (98-107) mEq/L Carbon Dioxide (21-32) mEq/L Anion Gap (5-15) BUN (7-18) mg/dL Creatinine (0.55-1.02) mg/dL Est Cr Clr Drug Dosing mL/min Estimated GFR (MDRD) (>60) mL/min BUN/Creatinine Ratio (14-18) Glucose (70-99) mg/dL POC Glucose 99 (70-99) mg/dL Calcium (8.5-10.1) mg/dL Magnesium (1.8-2.4) mg/dL Total Bilirubin (0.2-1.0) mg/dL AST (15-37) U/L ALT (14-59) U/L Alkaline Phosphatase (46-116) U/L C-Reactive Protein (<1.0) mg/dL Total Protein (6.4-8.2) g/dl Albumin (3.4-5.0) g/dl Globulin gm/dL Albumin/Globulin Ratio (1-2) Procalcitonin ng/mL Kevin Results Last 24 Hours: Microbiology 10/22/21 07:15 Blood Culture - Preliminary Blood - Venous - Lab Draw 10/22/21 07:20 Blood Culture - Preliminary Blood - Venous 10/22/21 18:10 Streptococcus pneumoniae Antigen (M - Final Urine Med Orders - Current: Current Medications Acetaminophen (Acetaminophen 325 Mg Tab) 650 mg PO Q4H PRN PRN Reason: Pain (Mild 1-3)/fever Last Admin: 10/24/21 10:54 Dose: 650 mg Documented by: Albuterol (Albuterol 0.083% 2.5 Mg/3 Ml Neb Soln) 2.5 mg NEB Q2H PRN PRN Reason: Shortness Of Breath/wheezing Albuterol/Ipratropium (Albuterol/Ipratropium 3.0-0.5 Mg/3 Ml Neb Soln) 3 ml NEB QIDRT [facility] Last Admin: 10/24/21 10:57 Dose: 3 ml Documented by: Alprazolam (Alprazolam 0.5 Mg Tab) 0.5 mg PO Q8H PRN PRN Reason: Anxiety Last Admin: 10/24/21 08:11 Dose: 0.5 mg Documented by: Ascorbic Acid (Ascorbic Acid 500 Mg Tab) 500 mg PO TID [facility] Last Admin: 10/24/21 08:11 Dose: 500 mg Documented by: Atorvastatin Calcium (Atorvastatin 40 Mg Tab) 40 mg PO BEDTIME [facility] Last Admin: 10/23/21 20:39 Dose: 40 mg Documented by: Budesonide (Budesonide 0.5 Mg/2 Ml Neb Susp) 0.5 mg INH TID@0600,1600,2100 [facility] Last Admin: 10/24/21 06:32 Dose: 0.5 mg Documented by: Cetirizine HCl (Cetirizine 10 Mg Tab) 10 mg PO DAILY [facility] Last Admin: 10/24/21 08:11 Dose: 10 mg Documented by: Clopidogrel Bisulfate (Clopidogrel 75 Mg Tab) 75 mg PO DAILY [facility] Last Admin: 10/24/21 08:11 Dose: 75 mg Documented by: Docusate Sodium (Docusate Sodium 100 Mg Cap) 200 mg PO DAILY [facility] Last Admin: 10/24/21 09:17 Dose: Not Given Documented by: Enoxaparin Sodium (Enoxaparin 40 Mg/0.4 Ml Syringe) 40 mg SUBCUT DAILY [facility] Last Admin: 10/24/21 08:12 Dose: 40 mg Documented by: Famotidine (Famotidine 20 Mg Tab) 20 mg PO BID [facility] Last Admin: 10/24/21 08:11 Dose: 20 mg Documented by: Ferrous Sulfate (Ferrous Sulfate 324 Mg Tab.Ec) 324 mg PO TID [facility] Last Admin: 10/24/21 08:12 Dose: 324 mg Documented by: Furosemide (Furosemide 20 Mg Tab) 20 mg PO DAILY [facility] Last Admin: 10/24/21 08:11 Dose: 20 mg Documented by: Guaifenesin (Guaifenesin 600 Mg Tab.Er) 600 mg PO BID [facility] Last Admin: 10/24/21 08:11 Dose: 600 mg Documented by: Hydralazine HCl (Hydralazine 20 Mg/Ml Sdv) 10 mg IVPUSH Q4H PRN PRN Reason: Hypertension Sodium Chloride (Normal Saline) 100 mls @ 75 mls/hr IV ASDIRECTED [facility] Last Admin: 10/22/21 08:42 Dose: 75 mls/hr Documented by: Ceftriaxone Sodium 2 gm/ (Sodium Chloride) 100 mls @ 200 mls/hr IV Q24H [facility] Last Admin: 10/24/21 08:13 Dose: 200 mls/hr Documented by: Insulin Glargine (Insulin Glargine,Hum.Rec.Anlog 100 Unit/Ml 3 Ml Pen) 65 unit SUBCUT BEDTIME [facility] Insulin Human Lispro (Insulin Lispro 100 Unit/Ml 3 Ml Kwikpen) 0 unit SUBCUT WITHMEALSANDBED [facility]; Protocol Last Admin: 10/24/21 11:55 Dose: Not Given Documented by: Magnesium Hydroxide (Magnesium Hydroxide 400 Mg/5 Ml Susp 30 Ml Cup) 30 ml PO Q12H PRN PRN Reason: Constipation Methylprednisolone Sodium Succinate (Methylprednisolone Sodium Succinate 40 Mg/1 Ml Sdv) 60 mg IVPUSH DAILY [facility] Last Admin: 10/24/21 08:10 Dose: 60 mg Documented by: Montelukast Sodium (Montelukast 10 Mg Tab) 10 mg PO BEDTIME [facility] Last Admin: 10/23/21 20:39 Dose: 10 mg Documented by: Ondansetron HCl (Ondansetron 4 Mg/2 Ml Sdv) 4 mg IV Q6H PRN PRN Reason: Nausea/Vomiting Clorazepate 3.75 Mg (Tablet) 0 each PO BID [facility] Last Admin: 10/24/21 08:12 Dose: 1 each Documented by: Roflumilast [ Daliresp] 500 Mcg Tablet 0 each PO DAILY [facility] Last Admin: 10/24/21 08:12 Dose: 1 each Documented by: Fluticasone/Umeclidin/Vilanter 1 Each Blst.W.Dev 0 each INH 1000 [facility] Last Admin: 10/24/21 10:57 Dose: 1 each Documented by: Potassium Chloride (Potassium Chloride 10 Meq Tab.Er) 10 meq PO DAILY [facility] Last Admin: 10/24/21 08:11 Dose: 10 meq Documented by: Sodium Chloride (Sodium Chloride 0.9% 10 Ml Syringe) 10 ml FLUSH ASDIRECTED PRN PRN Reason: Keep Vein Open Last Admin: 10/22/21 06:52 Dose: 10 ml Documented by: Sodium Chloride (Sodium Chloride 0.9% 10 Ml Syringe) 10 ml FLUSH ONETIME PRN PRN Reason: IV FLUSH Last Admin: 10/22/21 08:43 Dose: 10 ml Documented by: Discontinued Medications Albuterol (Albuterol 0.083% 2.5 Mg/3 Ml Neb Soln) Confirm Administered Dose 10 mg .ROUTE .STK-MED ONE Stop: 10/22/21 07:14 Last Admin: 10/22/21 07:20 Dose: 10 mg Documented by: Albuterol (Albuterol 0.083% 2.5 Mg/3 Ml Neb Soln) 10 mg NEB ONETIME ONE Stop: 10/22/21 07:21 Last Admin: 10/22/21 07:20 Dose: 10 mg Documented by: Albuterol (Albuterol 0.083% 2.5 Mg/3 Ml Neb Soln) 2.5 mg NEB ONETIME ONE Stop: 10/22/21 13:29 Last Admin: 10/22/21 13:38 Dose: 2.5 mg Documented by: Albuterol/Ipratropium (Albuterol/Ipratropium 3.0-0.5 Mg/3 Ml Neb Soln) 3 ml NEB ONETIME ONE Stop: 10/22/21 06:46 Last Admin: 10/22/21 06:55 Dose: 3 ml Documented by: Alprazolam (Alprazolam 0.5 Mg Tab) 0.5 mg PO DAILY PRN PRN Reason: flying Alprazolam (Alprazolam 0.5 Mg Tab) 0.5 mg PO BEDTIME PRN PRN Reason: Anxiety Last Admin: 10/23/21 09:03 Dose: 0.5 mg Documented by: Budesonide (Budesonide 0.25 Mg/2 Ml Neb Susp) mg INH TID [facility] Budesonide (Budesonide 0.5 Mg/2 Ml Neb Susp) Confirm Administered Dose 0.5 mg .ROUTE .STK-MED ONE Stop: 10/22/21 15:28 Last Admin: 10/22/21 15:32 Dose: Not Given Documented by: Famotidine (Famotidine 20 Mg Tab) 20 mg PO ONETIME ONE Stop: 10/22/21 21:01 Last Admin: 10/22/21 21:07 Dose: 20 mg Documented by: Magnesium Sulfate 2 gm/ Premix 50 mls @ 25 mls/hr IV ONETIME ONE Stop: 10/22/21 09:07 Last Admin: 10/22/21 07:21 Dose: 25 mls/hr Documented by: Levofloxacin/Dextrose 750 mg/ (Premix) 150 mls @ 100 mls/hr IV ONETIME ONE Stop: 10/22/21 08:42 Last Admin: 10/22/21 09:13 Dose: Not Given Documented by: Sodium Chloride (Normal Saline) 500 mls @ 1,000 mls/hr IV .BOLUS ONE Stop: 10/22/21 07:43 Last Admin: 10/22/21 07:50 Dose: 1,000 mls/hr Documented by: Azithromycin 500 mg/ Sodium (Chloride) 250 mls @ 250 mls/hr IV ONETIME ONE Stop: 10/22/21 08:51 Last Admin: 10/22/21 09:41 Dose: 250 mls/hr Documented by: Ceftriaxone Sodium 1 gm/ (Sodium Chloride) 100 mls @ 200 mls/hr IV ONETIME ONE Stop: 10/22/21 08:21 Last Admin: 10/23/21 14:24 Dose: Not Given Documented by: Ceftriaxone Sodium 1 gm/ (Sodium Chloride) 100 mls @ 200 mls/hr IV ONETIME ONE Stop: 10/22/21 08:32 Last Admin: 10/22/21 08:48 Dose: 200 mls/hr Documented by: Azithromycin 500 mg/ Sodium (Chloride) 250 mls @ 250 mls/hr IV Q24H [facility] Last Admin: 10/23/21 08:56 Dose: 250 mls/hr Documented by: Insulin Glargine (Insulin Glarg,Human.Rec.Analog 100 Unit/Ml) 72 unit SUBCUT BEDTIME [facility] Last Admin: 10/22/21 21:51 Dose: Not Given Documented by: Insulin Glargine (Insulin Glargine,Hum.Rec.Anlog 100 Unit/Ml 3 Ml Pen) 72 unit SUBCUT BEDTIME [facility] Last Admin: 10/23/21 20:43 Dose: 72 units Documented by: Iopamidol (Iopamidol 755 Mg/Ml 100 Ml Bottle) 100 ml IVPUSH ONETIME ONE Stop: 10/22/21 08:24 Last Admin: 10/22/21 08:42 Dose: 100 ml Documented by: Lorazepam (Lorazepam 2 Mg/Ml Sdv) 0.5 mg IVPUSH ONETIME ONE Stop: 10/22/21 08:10 Last Admin: 10/22/21 08:26 Dose: 0.5 mg Documented by: Methylprednisolone Sodium Succinate (Methylprednisolone Sodium Succinate 125 Mg/2 Ml Sdv) 125 mg IVPUSH ONETIME ONE Stop: 10/22/21 07:09 Last Admin: 10/22/21 07:17 Dose: 125 mg Documented by: Non-Formulary Medication (Vitamin D3-50.) 50,000 units PO ASDIRECTED [facility] Fluticasone/Umeclidin/Vilanter 1 Each Blst.W.Dev 0 each INH DAILY [facility] Patient Own Medication (Patient's Own Medication 1 Each) 1 each INH DAILY@1000 [facility] Senna/Docusate Sodium (Docusate Sodium/Sennosides 50-8.6 Mg Tab) 1 tab PO BID PRN PRN Reason: Constipation - Exam Physical Findings Comments:: General: Alert, Oriented, Cooperative, Mild Distress (Acutely short of breath) HEENT: Conjunctiva Clear, EACs Clear, Hearing Intact, Mucosa Moist & [place], Posterior Pharynx Clear, PERRLA Neck: Supple, Trachea Midline Lungs: Rhonchi, Wheezing. No: Normal Respiratory Effort (Tachypnea) Cardiovascular: Regular Rhythm, Tachycardia GI/Abdominal Exam: Normal Bowel Sounds, Soft, Non-Tender, No Distention (Female) Exam: Deferred Rectal (Female) Exam: Deferred Back Exam: Normal Inspection, Full Range of Motion, CVA Tenderness (L), Paraspinal Tenderness. No: CVA Tenderness (R) Extremities: Normal Inspection, Normal Range of Motion, Non-Tender, No Pedal Edema, Normal Capillary Refill Peripheral Pulses: 4+: Radial (L), Radial (R), Dorsalis Pedis (L), Dorsalis Pedis (R) Skin: Warm, Dry, Intact Neurological: Cranial Nerves Intact (Grossly) Neuro Extensive - Mental Status: Alert, Oriented x3, Normal Mood/Affect - Patient Data Lab Results Last 24 hrs: Laboratory Results - last 24 hr 10/22/21 10/23/21 10/23/21 Range/Units 07:20 17:11 20:42 WBC (3.98-10.04) K/mm3 RBC (3.98-5.22) M/mm3 Hgb (11.2-15.7) gm/dl Hct (34.1-44.9) % MCV (79.4-94.8) fl MCH (25.6-32.2) pg MCHC (32.2-35.5) g/dl RDW Std Deviation (36.4-46.3) fL Plt Count (182-369) K/mm3 MPV (9.4-12.3) fl Neut % (Auto) (34.0-71.1) % Lymph % (Auto) (19.3-51.7) % [place] % (Auto) (4.7-12.5) % Eos % (Auto) (0.7-5.8) Baso % (Auto) (0.1-1.2) % Neut # (Auto) (1.56-6.13) K/mm3 Lymph # (Auto) (1.18-3.74) K/mm3 [place] # (Auto) (0.24-0.36) K/mm3 Eos # (Auto) (0.04-0.36) K/mm3 Baso # (Auto) (0.01-0.08) K/mm3 Manual Slide Review Sodium (136-145) mEq/L Potassium (3.5-5.1) mEq/L Chloride (98-107) mEq/L Carbon Dioxide (21-32) mEq/L Anion Gap (5-15) BUN (7-18) mg/dL Creatinine (0.55-1.02) mg/dL Est Cr Clr Drug Dosing mL/min Estimated GFR (MDRD) (>60) mL/min BUN/Creatinine Ratio (14-18) Glucose (70-99) mg/dL POC Glucose 215 H 123 H (70-99) mg/dL Calcium (8.5-10.1) mg/dL Magnesium (1.8-2.4) mg/dL Total Bilirubin (0.2-1.0) mg/dL AST (15-37) U/L ALT (14-59) U/L Alkaline Phosphatase (46-116) U/L C-Reactive Protein (<1.0) mg/dL Total Protein (6.4-8.2) g/dl Albumin (3.4-5.0) g/dl Globulin gm/dL Albumin/Globulin Ratio (1-2) Procalcitonin 0.12 H ng/mL 10/24/21 10/24/21 10/24/21 Range/Units 04:52 04:52 06:29 WBC 6.16 (3.98-10.04) K/mm3 RBC 4.34 (3.98-5.22) M/mm3 Hgb 11.2 (11.2-15.7) gm/dl Hct 38.0 (34.1-44.9) % MCV 87.6 (79.4-94.8) fl MCH 25.8 (25.6-32.2) pg MCHC 29.5 L (32.2-35.5) g/dl RDW Std Deviation 45.5 (36.4-46.3) fL Plt Count 267 (182-369) K/mm3 MPV 10.1 (9.4-12.3) fl Neut % (Auto) 55.0 (34.0-71.1) % Lymph % (Auto) 33.4 (19.3-51.7) % [place] % (Auto) 8.8 (4.7-12.5) % Eos % (Auto) 0 L (0.7-5.8) Baso % (Auto) 0.5 (0.1-1.2) % Neut # (Auto) 3.39 (1.56-6.13) K/mm3 Lymph # (Auto) 2.06 (1.18-3.74) K/mm3 [place] # (Auto) 0.54 H (0.24-0.36) K/mm3 Eos # (Auto) 0.00 L (0.04-0.36) K/mm3 Baso # (Auto) 0.03 (0.01-0.08) K/mm3 Manual Slide Review Normal smear Sodium 144 (136-145) mEq/L Potassium 4.6 (3.5-5.1) mEq/L Chloride 105 (98-107) mEq/L Carbon Dioxide 35 H (21-32) mEq/L Anion Gap 8.6 (5-15) BUN 17 (7-18) mg/dL Creatinine 0.7 (0.55-1.02) mg/dL Est Cr Clr Drug Dosing 65.06 mL/min Estimated GFR (MDRD) > 60 (>60) mL/min BUN/Creatinine Ratio 24.3 H (14-18) Glucose 89 (70-99) mg/dL POC Glucose 73 (70-99) mg/dL Calcium 9.4 (8.5-10.1) mg/dL Magnesium 2.5 H (1.8-2.4) mg/dL Total Bilirubin 0.4 (0.2-1.0) mg/dL AST 17 (15-37) U/L ALT 31 (14-59) U/L Alkaline Phosphatase 67 (46-116) U/L C-Reactive Protein 2.6 H* (<1.0) mg/dL Total Protein 6.8 (6.4-8.2) g/dl Albumin 3.1 L (3.4-5.0) g/dl Globulin 3.7 gm/dL Albumin/Globulin Ratio 0.8 L (1-2) Procalcitonin ng/mL 10/24/21 Range/Units 11:14 WBC (3.98-10.04) K/mm3 RBC (3.98-5.22) M/mm3 Hgb (11.2-15.7) gm/dl Hct (34.1-44.9) % MCV (79.4-94.8) fl MCH (25.6-32.2) pg MCHC (32.2-35.5) g/dl RDW Std Deviation (36.4-46.3) fL Plt Count (182-369) K/mm3 MPV (9.4-12.3) fl Neut % (Auto) (34.0-71.1) % Lymph % (Auto) (19.3-51.7) % [place] % (Auto) (4.7-12.5) % Eos % (Auto) (0.7-5.8) Baso % (Auto) (0.1-1.2) % Neut # (Auto) (1.56-6.13) K/mm3 Lymph # (Auto) (1.18-3.74) K/mm3 [place] # (Auto) (0.24-0.36) K/mm3 Eos # (Auto) (0.04-0.36) K/mm3 Baso # (Auto) (0.01-0.08) K/mm3 Manual Slide Review Sodium (136-145) mEq/L Potassium (3.5-5.1) mEq/L Chloride (98-107) mEq/L Carbon Dioxide (21-32) mEq/L Anion Gap (5-15) BUN (7-18) mg/dL Creatinine (0.55-1.02) mg/dL Est Cr Clr Drug Dosing mL/min Estimated GFR (MDRD) (>60) mL/min BUN/Creatinine Ratio (14-18) Glucose (70-99) mg/dL POC Glucose 99 (70-99) mg/dL Calcium (8.5-10.1) mg/dL Magnesium (1.8-2.4) mg/dL Total Bilirubin (0.2-1.0) mg/dL AST (15-37) U/L ALT (14-59) U/L Alkaline Phosphatase (46-116) U/L C-Reactive Protein (<1.0) mg/dL Total Protein (6.4-8.2) g/dl Albumin (3.4-5.0) g/dl Globulin gm/dL Albumin/Globulin Ratio (1-2) Procalcitonin ng/mL Result Diagrams: 10/24/21 04:52 10/24/21 04:52 Kevin Results Last 24 hrs: Microbiology 10/22/21 07:15 Blood Culture - Preliminary Blood - Venous - Lab Draw 10/22/21 07:20 Blood Culture - Preliminary Blood - Venous 10/22/21 18:10 Streptococcus pneumoniae Antigen (M - Final Urine Sepsis Event Note - Evaluation Sepsis Screening Result: Sepsis Risk - Focused Exam Vital Signs: Vital Signs Temp Resp BP Pulse Ox Pulse Ox 10/24/21 12:00 35.7 C L 21 H 94 L 10/24/21 10:58 98 10/24/21 08:00 35.8 C L 26 H 94 L 10/24/21 06:32 99 10/24/21 04:00 35.7 C L 26 H 156/75 H 92 L - Problem List Review Problem List Initiated/Reviewed/Updated: Yes - My Orders Last 24 Hours: My Active Orders 10/24/21 21:00 Insulin Glargine,Hum.Rec.Anlog [Semglee Pen] 65 unit SUBCUT BEDTIME - Plan Plan:: Pneumonia Sepsis Recurrent pneumonia Asthma Chronic respiratory failure with hypoxia, on home oxygen therapy Acute respiratory failure with hypoxia COPD exacerbation Former smoker Generalized weakness * Oxygen as needed to keep saturations greater than 88%. Patient chronically on 2 L of oxygen * BiPAP as needed * Continue 2 g Rocephin daily * Discontinued azithromycin daily * Influenza A and B negative * Covid negative * MRSA negative * Blood cultures no growth * mycoplasma pneumonia negative * Procalcitonin pending * Troponin < 0.017 * BNP 121 * Continue home respiratory medications * Consult respiratory therapy * I-S/Acapella * 60 mg daily methylprednisolone IV push -hold home steroid * 4 times daily scheduled DuoNebs * As needed albuterol nebulizers * Droplet precautions * Repeat chest x-ray as needed * Sputum culture if able to produce * Continuous pulse oximetry * Telemetry * Sepsis Screen: Suspected pneumonia, tachycardia, tachypnea, respiratory failure requiring BiPAP: Meets criteria * PT/OC * CM/SW consultation Type II diabetes mellitus * 4 times daily before meals and bedtime blood glucose checks * Hold home Metformin * Continue home long-acting insulin, home meds include lantus 90units daily. Based on her glucose level, we adjusted it to 65units daily. 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 Based on her age, this would be a mild elevation. * Wells' Criteria for Pulmonary Embolism: 1.5 points. Low risk group: 1.3% chance of PE in an ED population. * Closely monitor Code status: CPR only PCP: Silvia Feliciano NP [facility] Prophylaxis: Home plavix Disposition: Admitted to the ICU as a MedSurg overflow on telemetry for management of pneumonia in the presence of multiple chronic lung conditions and sepsis. Likely length of stay 3 to 4 days. Prognosis: good.
[2021-10-24] MEDS: Metoprolol Tartrate 25 MG Tab PO SCH (14:33)
[2021-10-24] MEDS: Montelukast 10 MG Tab PO SCH (20:43)
[2021-10-24] MEDS: atorvaSTATin 40 MG Tab PO SCH (20:43)
[2021-10-24] MEDS ORDERED: Insulin Glargine,Hum.Rec.Anlog 100 UNIT/ML 3 ML Pen SUBCUT SCH (21:00)
[2021-10-25] MEDS: Metoprolol Tartrate 25 MG Tab PO SCH ×3 (03:29→15:25)
[2021-10-25] MEDS: Acetaminophen 325 MG Tab PO PRN ×3 (03:53→15:24)
[2021-10-25] MEDS: Albuterol/Ipratropium 3.0-0.5 MG/3 ML Neb Soln NEB SCH ×4 (06:20→20:37)
[2021-10-25] MEDS: Budesonide 0.5 MG/2 ML Neb Susp INH SCH ×3 (06:20→20:37)
[2021-10-25] MEDS: Insulin Lispro 100 Unit/ML 3 ML KwikPen SUBCUT SCH ×4 (08:55→21:47)
[2021-10-25] MEDS: Docusate Sodium 100 MG Cap PO SCH (08:56)
[2021-10-25] MEDS: methylPREDNISolone Sodium Succinate 40 MG/1 ML SDV IVPUSH SCH (08:57)
[2021-10-25] MEDS: Enoxaparin 40 MG/0.4 ML Syringe SUBCUT SCH (08:58)
[2021-10-25] MEDS: cefTRIAXone 2 GM in Sodium Chloride 0.9% 100 ML IV SCH (08:58)
[2021-10-25] MEDS: Famotidine 20 MG Tab PO SCH ×2 (08:59→21:49)
[2021-10-25] MEDS: Potassium Chloride 10 MEQ Tab.ER PO SCH (08:59)
[2021-10-25] MEDS: Cetirizine 10 MG Tab PO SCH (08:59)
[2021-10-25] MEDS: Clopidogrel 75 MG Tab PO SCH (08:59)
[2021-10-25] MEDS: Furosemide 20 MG Tab PO SCH (08:59)
[2021-10-25] MEDS: Ferrous Sulfate 324 MG Tab.EC PO SCH ×3 (08:59→21:50)
[2021-10-25] MEDS: Ascorbic Acid 500 MG Tab PO SCH ×3 (08:59→21:50)
[2021-10-25] MEDS: guaiFENesin 600 MG Tab.ER PO SCH ×2 (08:59→21:50)
[2021-10-25] MEDS ORDERED: DULAGLUTIDE 1.5 MG/0.5 ML SUBCUT SCH (09:00)
[2021-10-25] MEDS: Roflumilast [Daliresp] 500 MCG Tablet PO SCH (09:12)
[2021-10-25] MEDS: ALPRAZolam 0.5 MG Tab PO PRN (10:07)
--- NOTE | 2021-10-25 11:28 | PCM.PN ---
- General Info Date of Service: 10/25/21 Admission Dx/Problem (Free Text): Admission Diagnosis/Problem Admission Diagnosis/Problem Pneumonia Subjective Update: This is a 61-year-old female who presents to our ED on 10/22/2021 with dyspnea. She is on home oxygen due to history of COPD and has reportedly been on this for the past 14 years. Patient still has shortness of breath. But she is feeling much better. Denies fever or chills. She still has a tachycardia and tachypnea. Improving to 2L oxygen. Blood sugar 66 this morning. I will decreased his Lantus to 60 units from 65 units yesterday. - Review of Systems Systems Review Comment:: Positive for shortness of breath. All other systems were reviewed and are negat dickson. - Patient Data Vitals - Most Recent: Last Vital Signs Temp 35.7 C L 10/25/21 04:00 Pulse 116 H 10/25/21 03:52 Resp 28 H 10/25/21 04:00 BP 139/71 10/25/21 04:00 Pulse Ox 95 10/25/21 09:23 Weight - Most Recent: 74.435 kg I&O - Last 24 Hours: Intake & Output 10/24/21 10/25/21 10/25/21 22:59 06:59 14:59 Intake Total 1880 400 Balance 1880 400 Lab Results Last 24 Hours: Laboratory Results - last 24 hr 10/24/21 10/24/21 10/24/21 Range/Units 11:14 17:08 20:49 WBC (3.98-10.04) K/mm3 RBC (3.98-5.22) M/mm3 Hgb (11.2-15.7) gm/dl Hct (34.1-44.9) % MCV (79.4-94.8) fl MCH (25.6-32.2) pg MCHC (32.2-35.5) g/dl RDW Std Deviation (36.4-46.3) fL Plt Count (182-369) K/mm3 MPV (9.4-12.3) fl Neut % (Auto) (34.0-71.1) % Lymph % (Auto) (19.3-51.7) % [place] % (Auto) (4.7-12.5) % Eos % (Auto) (0.7-5.8) Baso % (Auto) (0.1-1.2) % Neut # (Auto) (1.56-6.13) K/mm3 Lymph # (Auto) (1.18-3.74) K/mm3 [place] # (Auto) (0.24-0.36) K/mm3 Eos # (Auto) (0.04-0.36) K/mm3 Baso # (Auto) (0.01-0.08) K/mm3 Manual Slide Review Sodium (136-145) mEq/L Potassium (3.5-5.1) mEq/L Chloride (98-107) mEq/L Carbon Dioxide (21-32) mEq/L Anion Gap (5-15) BUN (7-18) mg/dL Creatinine (0.55-1.02) mg/dL Est Cr Clr Drug Dosing mL/min Estimated GFR (MDRD) (>60) mL/min BUN/Creatinine Ratio (14-18) Glucose (70-99) mg/dL POC Glucose 99 330 H 168 H (70-99) mg/dL Calcium (8.5-10.1) mg/dL Magnesium (1.8-2.4) mg/dL Total Bilirubin (0.2-1.0) mg/dL AST (15-37) U/L ALT (14-59) U/L Alkaline Phosphatase (46-116) U/L C-Reactive Protein (<1.0) mg/dL Total Protein (6.4-8.2) g/dl Albumin (3.4-5.0) g/dl Globulin gm/dL Albumin/Globulin Ratio (1-2) 10/25/21 10/25/21 10/25/21 Range/Units 05:03 05:03 06:48 WBC 8.19 (3.98-10.04) K/mm3 RBC 4.21 (3.98-5.22) M/mm3 Hgb 10.9 L (11.2-15.7) gm/dl Hct 36.2 (34.1-44.9) % MCV 86.0 (79.4-94.8) fl MCH 25.9 (25.6-32.2) pg MCHC 30.1 L (32.2-35.5) g/dl RDW Std Deviation 43.0 (36.4-46.3) fL Plt Count 296 (182-369) K/mm3 MPV 9.9 (9.4-12.3) fl Neut % (Auto) 49.3 (34.0-71.1) % Lymph % (Auto) 40.0 (19.3-51.7) % [place] % (Auto) 7.2 (4.7-12.5) % Eos % (Auto) 0 L (0.7-5.8) Baso % (Auto) 0.4 (0.1-1.2) % Neut # (Auto) 4.04 (1.56-6.13) K/mm3 Lymph # (Auto) 3.28 (1.18-3.74) K/mm3 [place] # (Auto) 0.59 H (0.24-0.36) K/mm3 Eos # (Auto) 0.00 L (0.04-0.36) K/mm3 Baso # (Auto) 0.03 (0.01-0.08) K/mm3 Manual Slide Review Abnormal smear Sodium 142 (136-145) mEq/L Potassium 4.0 (3.5-5.1) mEq/L Chloride 99 (98-107) mEq/L Carbon Dioxide 37 H (21-32) mEq/L Anion Gap 10.0 (5-15) BUN 19 H (7-18) mg/dL Creatinine 0.7 (0.55-1.02) mg/dL Est Cr Clr Drug Dosing 65.06 mL/min Estimated GFR (MDRD) > 60 (>60) mL/min BUN/Creatinine Ratio 27.1 H (14-18) Glucose 81 (70-99) mg/dL POC Glucose 66 L (70-99) mg/dL Calcium 9.2 (8.5-10.1) mg/dL Magnesium 2.0 (1.8-2.4) mg/dL Total Bilirubin 0.3 (0.2-1.0) mg/dL AST 16 (15-37) U/L ALT 32 (14-59) U/L Alkaline Phosphatase 60 (46-116) U/L C-Reactive Protein 0.8 (<1.0) mg/dL Total Protein 6.3 L (6.4-8.2) g/dl Albumin 3.1 L (3.4-5.0) g/dl Globulin 3.2 gm/dL Albumin/Globulin Ratio 1.0 (1-2) 10/25/21 Range/Units 08:59 WBC 8.52 (3.98-10.04) K/mm3 RBC 4.48 (3.98-5.22) M/mm3 Hgb 11.4 (11.2-15.7) gm/dl Hct 38.5 (34.1-44.9) % MCV 85.9 (79.4-94.8) fl MCH 25.4 L (25.6-32.2) pg MCHC 29.6 L (32.2-35.5) g/dl RDW Std Deviation 43.6 (36.4-46.3) fL Plt Count 286 (182-369) K/mm3 MPV 9.7 (9.4-12.3) fl Neut % (Auto) 49.2 (34.0-71.1) % Lymph % (Auto) 40.1 (19.3-51.7) % [place] % (Auto) 7.3 (4.7-12.5) % Eos % (Auto) 0.1 L (0.7-5.8) Baso % (Auto) 0.8 (0.1-1.2) % Neut # (Auto) 4.19 (1.56-6.13) K/mm3 Lymph # (Auto) 3.42 (1.18-3.74) K/mm3 [place] # (Auto) 0.62 H (0.24-0.36) K/mm3 Eos # (Auto) 0.01 L (0.04-0.36) K/mm3 Baso # (Auto) 0.07 (0.01-0.08) K/mm3 Manual Slide Review Abnormal smear Sodium (136-145) mEq/L Potassium (3.5-5.1) mEq/L Chloride (98-107) mEq/L Carbon Dioxide (21-32) mEq/L Anion Gap (5-15) BUN (7-18) mg/dL Creatinine (0.55-1.02) mg/dL Est Cr Clr Drug Dosing mL/min Estimated GFR (MDRD) (>60) mL/min BUN/Creatinine Ratio (14-18) Glucose (70-99) mg/dL POC Glucose (70-99) mg/dL Calcium (8.5-10.1) mg/dL Magnesium (1.8-2.4) mg/dL Total Bilirubin (0.2-1.0) mg/dL AST (15-37) U/L ALT (14-59) U/L Alkaline Phosphatase (46-116) U/L C-Reactive Protein (<1.0) mg/dL Total Protein (6.4-8.2) g/dl Albumin (3.4-5.0) g/dl Globulin gm/dL Albumin/Globulin Ratio (1-2) Med Orders - Current: Current Medications Acetaminophen (Acetaminophen 325 Mg Tab) 650 mg PO Q4H PRN PRN Reason: Pain (Mild 1-3)/fever Last Admin: 10/25/21 10:07 Dose: 650 mg Documented by: Albuterol (Albuterol 0.083% 2.5 Mg/3 Ml Neb Soln) 2.5 mg NEB Q2H PRN PRN Reason: Shortness Of Breath/wheezing Last Admin: 10/25/21 04:18 Dose: 2.5 mg Documented by: Albuterol/Ipratropium (Albuterol/Ipratropium 3.0-0.5 Mg/3 Ml Neb Soln) 3 ml NEB QIDRT [facility] Last Admin: 10/25/21 09:22 Dose: 3 ml Documented by: Alprazolam (Alprazolam 0.5 Mg Tab) 0.5 mg PO Q8H PRN PRN Reason: Anxiety Last Admin: 10/25/21 10:07 Dose: 0.5 mg Documented by: Ascorbic Acid (Ascorbic Acid 500 Mg Tab) 500 mg PO TID [facility] Last Admin: 10/25/21 08:59 Dose: 500 mg Documented by: Atorvastatin Calcium (Atorvastatin 40 Mg Tab) 40 mg PO BEDTIME [facility] Last Admin: 10/24/21 20:43 Dose: 40 mg Documented by: Budesonide (Budesonide 0.5 Mg/2 Ml Neb Susp) 0.5 mg INH TID@0600,1600,2100 [facility] Last Admin: 10/25/21 06:20 Dose: 0.5 mg Documented by: Cetirizine HCl (Cetirizine 10 Mg Tab) 10 mg PO DAILY [facility] Last Admin: 10/25/21 08:59 Dose: 10 mg Documented by: Clopidogrel Bisulfate (Clopidogrel 75 Mg Tab) 75 mg PO DAILY [facility] Last Admin: 10/25/21 08:59 Dose: 75 mg Documented by: Docusate Sodium (Docusate Sodium 100 Mg Cap) 200 mg PO DAILY [facility] Last Admin: 10/25/21 08:56 Dose: Not Given Documented by: Enoxaparin Sodium (Enoxaparin 40 Mg/0.4 Ml Syringe) 40 mg SUBCUT DAILY [facility] Last Admin: 10/25/21 08:58 Dose: 40 mg Documented by: Famotidine (Famotidine 20 Mg Tab) 20 mg PO BID [facility] Last Admin: 10/25/21 08:59 Dose: 20 mg Documented by: Ferrous Sulfate (Ferrous Sulfate 324 Mg Tab.Ec) 324 mg PO TID [facility] Last Admin: 10/25/21 08:59 Dose: 324 mg Documented by: Furosemide (Furosemide 20 Mg Tab) 20 mg PO DAILY [facility] Last Admin: 10/25/21 08:59 Dose: 20 mg Documented by: Guaifenesin (Guaifenesin 600 Mg Tab.Er) 600 mg PO BID [facility] Last Admin: 10/25/21 08:59 Dose: 600 mg Documented by: Hydralazine HCl (Hydralazine 20 Mg/Ml Sdv) 10 mg IVPUSH Q4H PRN PRN Reason: Hypertension Ceftriaxone Sodium 2 gm/ (Sodium Chloride) 100 mls @ 200 mls/hr IV Q24H [facility] Last Admin: 10/25/21 08:58 Dose: 200 mls/hr Documented by: Insulin Glargine (Insulin Glargine,Hum.Rec.Anlog 100 Unit/Ml 3 Ml Pen) 60 unit SUBCUT DAILY [facility] Insulin Human Lispro (Insulin Lispro 100 Unit/Ml 3 Ml Kwikpen) 0 unit SUBCUT WITHMEALSANDBED [facility]; Protocol Last Admin: 10/25/21 08:55 Dose: Not Given Documented by: Magnesium Hydroxide (Magnesium Hydroxide 400 Mg/5 Ml Susp 30 Ml Cup) 30 ml PO Q12H PRN PRN Reason: Constipation Methylprednisolone Sodium Succinate (Methylprednisolone Sodium Succinate 40 Mg/1 Ml Sdv) 60 mg IVPUSH DAILY [facility] Last Admin: 10/25/21 08:57 Dose: 60 mg Documented by: Metoprolol Tartrate (Metoprolol Tartrate 25 Mg Tab) 12.5 mg PO Q12H [facility] Last Admin: 10/25/21 03:52 Dose: 12.5 mg Documented by: Montelukast Sodium (Montelukast 10 Mg Tab) 10 mg PO BEDTIME [facility] Last Admin: 10/24/21 20:43 Dose: 10 mg Documented by: Ondansetron HCl (Ondansetron 4 Mg/2 Ml Sdv) 4 mg IV Q6H PRN PRN Reason: Nausea/Vomiting Clorazepate 3.75 Mg (Tablet) 0 each PO BID [facility] Last Admin: 10/25/21 09:12 Dose: 1 each Documented by: Roflumilast [ Daliresp] 500 Mcg Tablet 0 each PO DAILY [facility] Last Admin: 10/25/21 09:12 Dose: 1 each Documented by: Fluticasone/Umeclidin/Vilanter 1 Each Blst.W.Dev 0 each INH 1000 [facility] Last Admin: 10/25/21 09:24 Dose: 1 each Documented by: Potassium Chloride (Potassium Chloride 10 Meq Tab.Er) 10 meq PO DAILY [facility] Last Admin: 10/25/21 08:59 Dose: 10 meq Documented by: Sodium Chloride (Sodium Chloride 0.9% 10 Ml Syringe) 10 ml FLUSH ASDIRECTED PRN PRN Reason: Keep Vein Open Last Admin: 10/22/21 06:52 Dose: 10 ml Documented by: Sodium Chloride (Sodium Chloride 0.9% 10 Ml Syringe) 10 ml FLUSH ONETIME PRN PRN Reason: IV FLUSH Last Admin: 10/22/21 08:43 Dose: 10 ml Documented by: Discontinued Medications Albuterol (Albuterol 0.083% 2.5 Mg/3 Ml Neb Soln) Confirm Administered Dose 10 mg .ROUTE .STK-MED ONE Stop: 10/22/21 07:14 Last Admin: 10/22/21 07:20 Dose: 10 mg Documented by: Albuterol (Albuterol 0.083% 2.5 Mg/3 Ml Neb Soln) 10 mg NEB ONETIME ONE Stop: 10/22/21 07:21 Last Admin: 10/22/21 07:20 Dose: 10 mg Documented by: Albuterol (Albuterol 0.083% 2.5 Mg/3 Ml Neb Soln) 2.5 mg NEB ONETIME ONE Stop: 10/22/21 13:29 Last Admin: 10/22/21 13:38 Dose: 2.5 mg Documented by: Albuterol/Ipratropium (Albuterol/Ipratropium 3.0-0.5 Mg/3 Ml Neb Soln) 3 ml NEB ONETIME ONE Stop: 10/22/21 06:46 Last Admin: 10/22/21 06:55 Dose: 3 ml Documented by: Alprazolam (Alprazolam 0.5 Mg Tab) 0.5 mg PO DAILY PRN PRN Reason: flying Alprazolam (Alprazolam 0.5 Mg Tab) 0.5 mg PO BEDTIME PRN PRN Reason: Anxiety Last Admin: 10/23/21 09:03 Dose: 0.5 mg Documented by: Budesonide (Budesonide 0.25 Mg/2 Ml Neb Susp) mg INH TID [facility] Budesonide (Budesonide 0.5 Mg/2 Ml Neb Susp) Confirm Administered Dose 0.5 mg .ROUTE .STK-MED ONE Stop: 10/22/21 15:28 Last Admin: 10/22/21 15:32 Dose: Not Given Documented by: Famotidine (Famotidine 20 Mg Tab) 20 mg PO ONETIME ONE Stop: 10/22/21 21:01 Last Admin: 10/22/21 21:07 Dose: 20 mg Documented by: Magnesium Sulfate 2 gm/ Premix 50 mls @ 25 mls/hr IV ONETIME ONE Stop: 10/22/21 09:07 Last Admin: 10/22/21 07:21 Dose: 25 mls/hr Documented by: Levofloxacin/Dextrose 750 mg/ (Premix) 150 mls @ 100 mls/hr IV ONETIME ONE Stop: 10/22/21 08:42 Last Admin: 10/22/21 09:13 Dose: Not Given Documented by: Sodium Chloride (Normal Saline) 500 mls @ 1,000 mls/hr IV .BOLUS ONE Stop: 10/22/21 07:43 Last Admin: 10/22/21 07:50 Dose: 1,000 mls/hr Documented by: Azithromycin 500 mg/ Sodium (Chloride) 250 mls @ 250 mls/hr IV ONETIME ONE Stop: 10/22/21 08:51 Last Admin: 10/22/21 09:41 Dose: 250 mls/hr Documented by: Ceftriaxone Sodium 1 gm/ (Sodium Chloride) 100 mls @ 200 mls/hr IV ONETIME ONE Stop: 10/22/21 08:21 Last Admin: 10/23/21 14:24 Dose: Not Given Documented by: Ceftriaxone Sodium 1 gm/ (Sodium Chloride) 100 mls @ 200 mls/hr IV ONETIME ONE Stop: 10/22/21 08:32 Last Admin: 10/22/21 08:48 Dose: 200 mls/hr Documented by: Sodium Chloride (Normal Saline) 100 mls @ 75 mls/hr IV ASDIRECTED [facility] Last Admin: 10/22/21 08:42 Dose: 75 mls/hr Documented by: Azithromycin 500 mg/ Sodium (Chloride) 250 mls @ 250 mls/hr IV Q24H [facility] Last Admin: 10/23/21 08:56 Dose: 250 mls/hr Documented by: Insulin Glargine (Insulin Glarg,Human.Rec.Analog 100 Unit/Ml) 72 unit SUBCUT BEDTIME [facility] Last Admin: 10/22/21 21:51 Dose: Not Given Documented by: Insulin Glargine (Insulin Glargine,Hum.Rec.Anlog 100 Unit/Ml 3 Ml Pen) 72 unit SUBCUT BEDTIME [facility] Last Admin: 10/23/21 20:43 Dose: 72 units Documented by: Insulin Glargine (Insulin Glargine,Hum.Rec.Anlog 100 Unit/Ml 3 Ml Pen) 65 unit SUBCUT BEDTIME [facility] Last Admin: 10/24/21 20:52 Dose: 65 units Documented by: Iopamidol (Iopamidol 755 Mg/Ml 100 Ml Bottle) 100 ml IVPUSH ONETIME ONE Stop: 10/22/21 08:24 Last Admin: 10/22/21 08:42 Dose: 100 ml Documented by: Lorazepam (Lorazepam 2 Mg/Ml Sdv) 0.5 mg IVPUSH ONETIME ONE Stop: 10/22/21 08:10 Last Admin: 10/22/21 08:26 Dose: 0.5 mg Documented by: Methylprednisolone Sodium Succinate (Methylprednisolone Sodium Succinate 125 Mg/2 Ml Sdv) 125 mg IVPUSH ONETIME ONE Stop: 10/22/21 07:09 Last Admin: 10/22/21 07:17 Dose: 125 mg Documented by: Non-Formulary Medication (Vitamin D3-50.) 50,000 units PO ASDIRECTED [facility] Fluticasone/Umeclidin/Vilanter 1 Each Blst.W.Dev 0 each INH DAILY [facility] Patient Own Medication (Patient's Own Medication 1 Each) 1 each INH DAILY@1000 [facility] Senna/Docusate Sodium (Docusate Sodium/Sennosides 50-8.6 Mg Tab) 1 tab PO BID PRN PRN Reason: Constipation - Exam Physical Findings Comments:: General: Alert, Oriented, Cooperative, Mild Distress (Acutely short of breath) HEENT: Conjunctiva Clear, EACs Clear, Hearing Intact, Mucosa Moist & [place], Posterior Pharynx Clear, PERRLA Neck: Supple, Trachea Midline Lungs: Diminished breathing sounds, occasionally wheezing. No: Normal Respiratory Effort (Tachypnea) Cardiovascular: Regular Rhythm, Tachycardia GI/Abdominal Exam: Normal Bowel Sounds, Soft, Non-Tender, No Distention (Female) Exam: Deferred Rectal (Female) Exam: Deferred Back Exam: Normal Inspection, Full Range of Motion, CVA Tenderness (L), Paraspinal Tenderness. No: CVA Tenderness (R) Extremities: Normal Inspection, Normal Range of Motion, Non-Tender, No Pedal Edema, Normal Capillary Refill Peripheral Pulses: 4+: Radial (L), Radial (R), Dorsalis Pedis (L), Dorsalis Pedis (R) Skin: Warm, Dry, Intact Neurological: Cranial Nerves Intact (Grossly) Neuro Extensive - Mental Status: Alert, Oriented x3, Normal Mood/Affect - Patient Data Lab Results Last 24 hrs: Laboratory Results - last 24 hr 10/24/21 10/24/21 10/24/21 Range/Units 11:14 17:08 20:49 WBC (3.98-10.04) K/mm3 RBC (3.98-5.22) M/mm3 Hgb (11.2-15.7) gm/dl Hct (34.1-44.9) % MCV (79.4-94.8) fl MCH (25.6-32.2) pg MCHC (32.2-35.5) g/dl RDW Std Deviation (36.4-46.3) fL Plt Count (182-369) K/mm3 MPV (9.4-12.3) fl Neut % (Auto) (34.0-71.1) % Lymph % (Auto) (19.3-51.7) % [place] % (Auto) (4.7-12.5) % Eos % (Auto) (0.7-5.8) Baso % (Auto) (0.1-1.2) % Neut # (Auto) (1.56-6.13) K/mm3 Lymph # (Auto) (1.18-3.74) K/mm3 [place] # (Auto) (0.24-0.36) K/mm3 Eos # (Auto) (0.04-0.36) K/mm3 Baso # (Auto) (0.01-0.08) K/mm3 Manual Slide Review Sodium (136-145) mEq/L Potassium (3.5-5.1) mEq/L Chloride (98-107) mEq/L Carbon Dioxide (21-32) mEq/L Anion Gap (5-15) BUN (7-18) mg/dL Creatinine (0.55-1.02) mg/dL Est Cr Clr Drug Dosing mL/min Estimated GFR (MDRD) (>60) mL/min BUN/Creatinine Ratio (14-18) Glucose (70-99) mg/dL POC Glucose 99 330 H 168 H (70-99) mg/dL Calcium (8.5-10.1) mg/dL Magnesium (1.8-2.4) mg/dL Total Bilirubin (0.2-1.0) mg/dL AST (15-37) U/L ALT (14-59) U/L Alkaline Phosphatase (46-116) U/L C-Reactive Protein (<1.0) mg/dL Total Protein (6.4-8.2) g/dl Albumin (3.4-5.0) g/dl Globulin gm/dL Albumin/Globulin Ratio (1-2) 10/25/21 10/25/21 10/25/21 Range/Units 05:03 05:03 06:48 WBC 8.19 (3.98-10.04) K/mm3 RBC 4.21 (3.98-5.22) M/mm3 Hgb 10.9 L (11.2-15.7) gm/dl Hct 36.2 (34.1-44.9) % MCV 86.0 (79.4-94.8) fl MCH 25.9 (25.6-32.2) pg MCHC 30.1 L (32.2-35.5) g/dl RDW Std Deviation 43.0 (36.4-46.3) fL Plt Count 296 (182-369) K/mm3 MPV 9.9 (9.4-12.3) fl Neut % (Auto) 49.3 (34.0-71.1) % Lymph % (Auto) 40.0 (19.3-51.7) % [place] % (Auto) 7.2 (4.7-12.5) % Eos % (Auto) 0 L (0.7-5.8) Baso % (Auto) 0.4 (0.1-1.2) % Neut # (Auto) 4.04 (1.56-6.13) K/mm3 Lymph # (Auto) 3.28 (1.18-3.74) K/mm3 [place] # (Auto) 0.59 H (0.24-0.36) K/mm3 Eos # (Auto) 0.00 L (0.04-0.36) K/mm3 Baso # (Auto) 0.03 (0.01-0.08) K/mm3 Manual Slide Review Abnormal smear Sodium 142 (136-145) mEq/L Potassium 4.0 (3.5-5.1) mEq/L Chloride 99 (98-107) mEq/L Carbon Dioxide 37 H (21-32) mEq/L Anion Gap 10.0 (5-15) BUN 19 H (7-18) mg/dL Creatinine 0.7 (0.55-1.02) mg/dL Est Cr Clr Drug Dosing 65.06 mL/min Estimated GFR (MDRD) > 60 (>60) mL/min BUN/Creatinine Ratio 27.1 H (14-18) Glucose 81 (70-99) mg/dL POC Glucose 66 L (70-99) mg/dL Calcium 9.2 (8.5-10.1) mg/dL Magnesium 2.0 (1.8-2.4) mg/dL Total Bilirubin 0.3 (0.2-1.0) mg/dL AST 16 (15-37) U/L ALT 32 (14-59) U/L Alkaline Phosphatase 60 (46-116) U/L C-Reactive Protein 0.8 (<1.0) mg/dL Total Protein 6.3 L (6.4-8.2) g/dl Albumin 3.1 L (3.4-5.0) g/dl Globulin 3.2 gm/dL Albumin/Globulin Ratio 1.0 (1-2) 10/25/21 Range/Units 08:59 WBC 8.52 (3.98-10.04) K/mm3 RBC 4.48 (3.98-5.22) M/mm3 Hgb 11.4 (11.2-15.7) gm/dl Hct 38.5 (34.1-44.9) % MCV 85.9 (79.4-94.8) fl MCH 25.4 L (25.6-32.2) pg MCHC 29.6 L (32.2-35.5) g/dl RDW Std Deviation 43.6 (36.4-46.3) fL Plt Count 286 (182-369) K/mm3 MPV 9.7 (9.4-12.3) fl Neut % (Auto) 49.2 (34.0-71.1) % Lymph % (Auto) 40.1 (19.3-51.7) % [place] % (Auto) 7.3 (4.7-12.5) % Eos % (Auto) 0.1 L (0.7-5.8) Baso % (Auto) 0.8 (0.1-1.2) % Neut # (Auto) 4.19 (1.56-6.13) K/mm3 Lymph # (Auto) 3.42 (1.18-3.74) K/mm3 [place] # (Auto) 0.62 H (0.24-0.36) K/mm3 Eos # (Auto) 0.01 L (0.04-0.36) K/mm3 Baso # (Auto) 0.07 (0.01-0.08) K/mm3 Manual Slide Review Abnormal smear Sodium (136-145) mEq/L Potassium (3.5-5.1) mEq/L Chloride (98-107) mEq/L Carbon Dioxide (21-32) mEq/L Anion Gap (5-15) BUN (7-18) mg/dL Creatinine (0.55-1.02) mg/dL Est Cr Clr Drug Dosing mL/min Estimated GFR (MDRD) (>60) mL/min BUN/Creatinine Ratio (14-18) Glucose (70-99) mg/dL POC Glucose (70-99) mg/dL Calcium (8.5-10.1) mg/dL Magnesium (1.8-2.4) mg/dL Total Bilirubin (0.2-1.0) mg/dL AST (15-37) U/L ALT (14-59) U/L Alkaline Phosphatase (46-116) U/L C-Reactive Protein (<1.0) mg/dL Total Protein (6.4-8.2) g/dl Albumin (3.4-5.0) g/dl Globulin gm/dL Albumin/Globulin Ratio (1-2) Result Diagrams: 10/25/21 08:59 10/25/21 05:03 Sepsis Event Note - Evaluation Sepsis Screening Result: Sepsis Risk - Focused Exam Vital Signs: Vital Signs Temp Pulse Resp BP BP Pulse Ox Pulse Ox 10/25/21 09:23 95 10/25/21 06:20 94 L 10/25/21 04:19 94 L 10/25/21 04:00 35.7 C L 28 H 139/71 94 L 10/25/21 03:52 116 H 138/79 10/25/21 00:00 35.8 C L 19 128/76 98 - Problem List Review Problem List Initiated/Reviewed/Updated: Yes - My Orders Last 24 Hours: My Active Orders 10/24/21 14:30 Metoprolol Tartrate [Lopressor] 12.5 mg PO Q12H 10/25/21 21:00 Insulin Glargine,Hum.Rec.Anlog [Semglee Pen] 60 unit SUBCUT DAILY - Plan Plan:: Pneumonia Sepsis Recurrent pneumonia Asthma Chronic respiratory failure with hypoxia, on home oxygen therapy Acute respiratory failure with hypoxia COPD exacerbation Former smoker Generalized weakness * Oxygen as needed to keep saturations greater than 88%. Patient chronically on 2 L of oxygen * BiPAP as needed * Continue 2 g Rocephin daily * Discontinued azithromycin daily * Influenza A and B negative * Covid negative * MRSA negative * Blood cultures no growth * mycoplasma pneumonia negative * Procalcitonin pending * Troponin < 0.017 * BNP 121 * Continue home respiratory medications * Consult respiratory therapy * I-S/Acapella * 60 mg daily methylprednisolone IV push -hold home steroid * 4 times daily scheduled DuoNebs * As needed albuterol nebulizers * Droplet precautions * Repeat chest x-ray as needed * Sputum culture if able to produce * Continuous pulse oximetry * Telemetry * Sepsis Screen: Suspected pneumonia, tachycardia, tachypnea, respiratory failure requiring BiPAP: Meets criteria * PT/OC * CM/SW consultation Type II diabetes mellitus * 4 times daily before meals and bedtime blood glucose checks * Hold home Metformin * resumed dulaglutide 1.5 mg weekly * Continue home long-acting insulin, home meds include lantus 90units daily. Based on her glucose level, we adjusted it to 60 units daily. * Medium intensity sliding scale insulin * Consistent carbohydrate diet * Anticipate blood glucose rise due to steroids Lung nodule * PCP follow-up * Radiology recommending repeat CT scan of chest without contrast in 4 months History of venous thromboembolism * No acute concerns * Continue home Plavix HLD (hyperlipidemia) * Acute concerns * Continue home statin EVELYN (Iron deficiency anemia) Chronic GI bleed * Per patient her coconut jelly roller will not sign off on a colonoscopy due to concerns of her respiratory status * Continue home iron and vitamin C * Monitor labs History of renal stent * No acute concerns Anxiety * No acute concerns * Continue home antianxiety meds Vitamin D deficiency Iron deficiency * No acute concerns * Continue home supplementation Papilloma of right breast * No acute concerns Recurrent UTI * No acute concerns Elevation of D-dimer * 0.98. Based on her age, this would be a mild elevation. * Wells' Criteria for Pulmonary Embolism: 1.5 points. Low risk group: 1.3% chance of PE in an ED population. * Closely monitor Code status: CPR only PCP: Silvia Feliciano NP [facility] Prophylaxis: Lovenox Disposition: Likely length of stay 3 to 4 days. Prognosis: good. Pt needs pcp, pulmonology and endocrinology
[2021-10-25] MEDS: Insulin Glargine,Hum.Rec.Anlog 100 UNIT/ML 3 ML Pen SUBCUT SCH (21:47)
[2021-10-25] MEDS: atorvaSTATin 40 MG Tab PO SCH (21:49)
[2021-10-25] MEDS: Montelukast 10 MG Tab PO SCH (21:50)
[2021-10-26] MEDS ORDERED: Metoprolol Tartrate 25 MG Tab PO SCH (06:00)
[2021-10-26] MEDS: Budesonide 0.5 MG/2 ML Neb Susp INH SCH (06:06)
[2021-10-26] MEDS: Albuterol/Ipratropium 3.0-0.5 MG/3 ML Neb Soln NEB SCH ×2 (06:06→09:02)
[2021-10-26] MEDS: Insulin Lispro 100 Unit/ML 3 ML KwikPen SUBCUT SCH ×2 (06:59→12:00)
[2021-10-26] MEDS: Enoxaparin 40 MG/0.4 ML Syringe SUBCUT SCH (08:53)
[2021-10-26] MEDS: methylPREDNISolone Sodium Succinate 40 MG/1 ML SDV IVPUSH SCH (08:53)
[2021-10-26] MEDS: Docusate Sodium 100 MG Cap PO SCH (08:54)
[2021-10-26] MEDS: Ferrous Sulfate 324 MG Tab.EC PO SCH (08:54)
[2021-10-26] MEDS: Cetirizine 10 MG Tab PO SCH (08:54)
[2021-10-26] MEDS: Famotidine 20 MG Tab PO SCH (08:54)
[2021-10-26] MEDS: Potassium Chloride 10 MEQ Tab.ER PO SCH (08:54)
[2021-10-26] MEDS: Ascorbic Acid 500 MG Tab PO SCH (08:54)
[2021-10-26] MEDS: Furosemide 20 MG Tab PO SCH (08:54)
[2021-10-26] MEDS: guaiFENesin 600 MG Tab.ER PO SCH (08:54)
[2021-10-26] MEDS: Clopidogrel 75 MG Tab PO SCH (08:54)
[2021-10-26] MEDS: cefTRIAXone 2 GM in Sodium Chloride 0.9% 100 ML IV SCH (08:55)
[2021-10-26] MEDS: Roflumilast [Daliresp] 500 MCG Tablet PO SCH (08:57)
[2021-10-26] MEDS: Insulin Glargine,Hum.Rec.Anlog 100 UNIT/ML 3 ML Pen SUBCUT SCH (10:02)
--- NOTE | 2021-10-26 12:18 | US ---
Bilateral lower extremity deep venous ultrasound: Duplex and color Doppler evaluation was obtained of the right and left common femoral, proximal greater saphenous, superficial femoral, popliteal, posterior tibial and peroneal veins. Comparison: No prior venous imaging is available. Findings: Normal phasic flow, augmentation and compression are seen. Impression: 1. No findings of deep venous thrombosis are seen within either the right or left lower extremities. Diagnostic code #1
--- NOTE | 2021-10-26 13:09 | PCM.DCSUM1 ---
Discharge Summary - Hospital Course HPI Initial Comments: This is a 61-year-old female who presents to our ED on 10/22/2021 with dyspnea. She is on home oxygen due to history of COPD and has reportedly been on this for the past 14 years. Her is at bedside and did provide much of her history. Patient reportedly had a similar episode 4 months ago and was treated with steroids with good response. This past Tuesday patient was noted to appear sick with dyspnea and cough. She went to her primary care provider on Tuesday and was given prednisone however this had no real effect and her symptoms have been worsening. She denies any pain or fevers. No recent hospitalizations. She does have an albuterol inhaler at home which she has been utilizing with minimal effect. In the ED temp was 35.9 C. Pulse 138. Respirations 38. Blood pressure 156/62. Pulse ox was 93%. Labs are obtained showing a WBC of 8.18. Hemoglobin 12.2. Platelet 281,000. Neutrophils are normal at 59%. There is no bandemia. ABGs obtained in the right radial with a pH of 7.35. PCO2 is 51.7. PO2 is 46.0. HCO3 is 28.1. O2 saturations 82.9. Base excess is 2.3. AA gradient is 89. This is obtained while on 2 L via nasal cannula. Influenza a and B as well as SARS-CoV-2 RNA are all negative. Sodium is 140. Potassium 3.7. Chloride 99. Carbon dioxide 32. Anion gap is 12.7. BUN is 21. Creatinine 1.0. GFR is 56. Glucose is 126. Lactic acid is 1.2. Calcium is 10.1. Total bilirubin 0.6. AST is 21, ALT 30, alkaline phosphatase 79. Troponin is less than 0.017. CRP is 9.2. Protein is 8.0. Albumin is 3.6. D-dimer is 0.98. Chest x-rays obtained showing findings suspicious for increased density within both lung bases suggesting mild bibasilar pneumonia. Chest angiogram was obtained showing no findings of pulmonary embolism. There are mild areas of increased density within the left upper lung as well as within both lower lungs. Nodularity is seen within the left lower lung. Findings raise the possibility of mild areas of pneumonia either viral or bacterial. There are other incidental findings noted. Recommend follow-up chest CT within 4 months to confirm resolution of nodularity within the left lung base. She is given 2 g of magnesium and started on 1 g of Rocephin and 500 mg of azithromycin. She is also given a DuoNeb and 0.5 mg of Ativan. She is started on BiPAP. Blood cultures are obtained and are pending. 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 She is a former smoker. She is subsequently admitted to the medical floor on telemetry for management of her pneumonia and sepsis. Her PCP is Silvia Feliciano NP. She is a CPR only. Diagnosis: Stroke: No - Discharge Data Discharge Date: 10/26/21 (Admit date: 10/22/2021) Discharge Disposition: Home, Self-Care 01 Condition: Good - Referral to Home Health Primary Care Physician: Silvia Feliciano NP - Discharge Diagnosis/Problem(s) (1) Pneumonia SNOMED Code(s): 485364148 ICD Code: J18.9 - PNEUMONIA, UNSPECIFIED ORGANISM Status: Acute Priority: High Current Visit: Yes Qualifiers: Pneumonia type: due to unspecified organism Laterality: bilateral Lung location: unspecified part of lung Qualified Code(s): J18.9 - Pneumonia, unspecified organism (2) Sepsis SNOMED Code(s): 40500220 ICD Code: A41.9 - SEPSIS, UNSPECIFIED ORGANISM Status: Resolved Priority: High Current Visit: Yes Qualifiers: Sepsis type: sepsis due to unspecified organism Sepsis acute organ dysfunction status: with acute organ dysfunction Severe sepsis acute organ dysfunction type: acute respiratory failure Acute respiratory failure type: with hypoxia Severe sepsis shock status: without septic shock Qualified Code(s): A41.9 - Sepsis, unspecified organism; R65.20 - Severe sepsis without septic shock; J96.01 - Acute respiratory failure with hypoxia (3) Recurrent pneumonia SNOMED Code(s): 558392395 ICD Code: J18.9 - PNEUMONIA, UNSPECIFIED ORGANISM Status: Chronic Priority: High Current Visit: Yes (4) Recurrent UTI SNOMED Code(s): 895954364 ICD Code: N39.0 - URINARY TRACT INFECTION, SITE NOT SPECIFIED Status: Chronic Priority: Low Current Visit: No (5) Asthma SNOMED Code(s): 511119852 ICD Code: J45.909 - UNSPECIFIED ASTHMA, UNCOMPLICATED Status: Chronic Priority: High Current Visit: Yes Qualifiers: Asthma severity: unspecified severity Asthma persistence: unspecified Asthma complication type: unspecified Qualified Code(s): J45.909 - Unspecified asthma, uncomplicated (6) Chronic respiratory failure with hypoxia, on home oxygen therapy SNOMED Code(s): 219500486 ICD Code: J96.11 - CHRONIC RESPIRATORY FAILURE WITH HYPOXIA; Z99.81 - DEPENDENCE ON SUPPLEMENTAL OXYGEN Status: Chronic Priority: High Current Visit: Yes (7) Acute respiratory failure with hypoxia SNOMED Code(s): 18929347, 117923931 ICD Code: J96.01 - ACUTE RESPIRATORY FAILURE WITH HYPOXIA Status: Acute Priority: High Current Visit: Yes (8) COPD exacerbation SNOMED Code(s): 567037787 ICD Code: J44.1 - CHRONIC OBSTRUCTIVE PULMONARY DISEASE W (ACUTE) EXACERBATION Status: Acute Priority: High Current Visit: Yes (9) History of venous thromboembolism SNOMED Code(s): 403491538 ICD Code: Z86.718 - PERSONAL HISTORY OF OTHER VENOUS THROMBOSIS AND EMBOLISM Status: Chronic Priority: Medium Current Visit: No (10) HLD (hyperlipidemia) SNOMED Code(s): 28805182 ICD Code: E78.5 - HYPERLIPIDEMIA, UNSPECIFIED Status: Chronic Priority: Low Current Visit: No Qualifiers: Hyperlipidemia type: unspecified Qualified Code(s): E78.5 - Hyperlipidemia, unspecified (11) History of renal stent SNOMED Code(s): 039440757 ICD Code: COR5111 - Status: Chronic Priority: Low Current Visit: No (12) Anxiety SNOMED Code(s): 09645550 ICD Code: F41.9 - ANXIETY DISORDER, UNSPECIFIED Status: Chronic Priority: Medium Current Visit: No (13) Type II diabetes mellitus SNOMED Code(s): 71130342 ICD Code: E11.9 - TYPE 2 DIABETES MELLITUS WITHOUT COMPLICATIONS Status: Chronic Priority: Medium Current Visit: Yes Qualifiers: Diabetes mellitus ell tutor insulin use: with care home use Diabetes mellitus complication status: with other specified complication Qualified Code(s): E11.69 - Type 2 diabetes mellitus with other specified complication; Z79.4 - longterm (current) use of insulin (14) Vitamin D deficiency SNOMED Code(s): 85988875 ICD Code: E55.9 - VITAMIN D DEFICIENCY, UNSPECIFIED Status: Chronic Priority: Low Current Visit: No (15) Iron deficiency SNOMED Code(s): 41412901 ICD Code: E61.1 - IRON DEFICIENCY Status: Chronic Priority: Low Current Visit: No (16) Papilloma of right breast SNOMED Code(s): 71151791357329 ICD Code: D24.1 - BENIGN NEOPLASM OF RIGHT BREAST Status: Chronic Priority: Low Current Visit: No (17) Former smoker SNOMED Code(s): 6442346 ICD Code: Z87.891 - PERSONAL HISTORY OF NICOTINE DEPENDENCE Status: Chronic Priority: Medium Current Visit: No (18) Lung nodule SNOMED Code(s): 108415608 ICD Code: R91.1 - SOLITARY PULMONARY NODULE Status: Acute Priority: Low Current Visit: Yes (19) EVELYN (iron deficiency anemia) SNOMED Code(s): 52978408 ICD Code: D50.9 - IRON DEFICIENCY ANEMIA, UNSPECIFIED Status: Chronic Priority: Medium Current Visit: No Qualifiers: Iron deficiency anemia type: chronic blood loss Qualified Code(s): D50.0 - Iron deficiency anemia secondary to blood loss (chronic) (20) Chronic GI hemorrhage SNOMED Code(s): 42906955 ICD Code: K92.2 - GASTROINTESTINAL HEMORRHAGE, UNSPECIFIED Status: Chronic Priority: Medium Current Visit: No (21) Generalized weakness SNOMED Code(s): 35931091 ICD Code: R53.1 - WEAKNESS Status: Acute Priority: High Current Visit: Yes - Patient Summary/Data Consults: Consultations 10/22/21 13:47 Consult to Case Management/Ccu Nurse [CONS] Routine 10/22/21 13:50 OT Evaluation and Treatment [CONS] Routine PT Evaluation and Treatment [CONS] Routine Respiratory Care Assess and Treatment [CONS] Routine Labs Pending at D/C: None Recommended Follow-up Testing/Procedures: Follow-up with primary care provider within 5 to 7 days of discharge, sooner if needed. * All home medications continued at discharge. * Patient discharged on 500 mg Keflex every 8 hours with first dose tonight, 10-26-2021. * Patient discharged on 40 mg steroid taper, decreasing by 10 mg every 3 days. * Patient was noted to be tachycardic while here with heart rate up in the 120s. Patient reported heart rates as high as 160 at home. This is likely exacerbated by the albuterol. May consider switching patient to Xopenex outpatient. Patient started on metoprolol 25 mg twice daily. Patient instructed to check heart rate twice a day and record this in a journal. Please review this journal. * Instructed to continue I-S and Acapella for 1 to 2 weeks or until symptoms resolve. * Consider outpatient PFT after discharge. * Lung nodule noted on CT scan. Recommend repeat CT scan in 4 months. Recommend follow-up with lathing supervisor after discharge. Hospital Course: This is a 61-year-old female admitted to the floor for concerns over pneumonia and deemed to be septic as she was requiring BiPAP in the emergency room. She was started on 2 g of Rocephin daily and also azithromycin. She completed her azithromycin treatment. Patient has a longstanding history of multiple chronic lung conditions including COPD, recurrent pneumonia and asthma. She is oxygen dependent at 2 L for baseline. Patient was requiring BiPAP in the emergency department however she was weaned down to nasal cannula prior to hitting the medical floor. At her worst she was requiring 4.5 L via nasal cannula on the floor and was weaned back to her normal 2 L at discharge. MRSA screen was negative. COVID-19 along with influenza a and B were negative. Mycoplasma was negative. Calcitonin was obtained and was 0.12. Is felt patient was also suffering from a COPD exacerbation and so she was started on 60 mg IV push methylprednisolone with good response. She was receiving scheduled DuoNebs. D- dimer was elevated 0.98. CT angiogram was obtained of the chest and showed findings concerning for pneumonia but no signs of PE. Bilateral lower extremity ultrasound was obtained showing no findings of PE. Patient is a diabetic and was receiving a slightly lower dose of home long-acting insulin here. Blood sugars have been variable and elevated. Will resume patient's home diabetic medications at discharge. Patient is aware she will likely have elevated blood glucose readings due to her steroids. Patient instructed to continue to check her home blood glucose readings per prior routine. On CT scan of her chest a lung nodule was noted and given her smoking history recommend repeat CT scan within 4 months to check stability. Overall patient did well. Should be discharged on 2 more days of every 8 hour Keflex 500 mg. She will be discharged on a 40 mg steroid taper, decreasing 10 mg every 3 days until gone. Patient was noted to be quite tachycardic while here with heart rate getting as high as 120s. Patient states she has been in the 160s frequently at home. This is likely exacerbated by steroid and also albuterol. PCP should consider switching patient to Xopenex. Patient was started on 12.5 mg twice daily metoprolol which improved her heart rate, but it is still somewhat elevated. We will increase this to 25 mg twice daily metoprolol tartrate at discharge. She was instructed to check her heart rate twice a day and record this in a journal, bring this with to all medical appointments. Recommend follow-up with pulmonology and possible PFT after symptoms resolve. Patient started to continue to utilize her incentive spirometer and Acapella for 1 to 2 weeks or until symptoms resolve after discharge. Patient seen by PT and OT were recommending home with no services. Recommend follow-up with primary care provider within 5 to 7 days of discharge, sooner if needed. Recommend repeat CBC, CMP, magnesium, and consider repeat chest x-ray. Patient is directed to contact her primary care provider or return the emergency room should symptoms return or worsen. - Patient Instructions Diet: Diabetic Diet Activity: As Tolerated Driving: Do Not Drive Showering/Bathing: May Shower Notify Provider of: Fever, Increased Pain, Nausea and/or Vomiting Other/Special Instructions: Follow-up with primary care provider within 5 to 7 days of discharge, sooner if needed. Resume home medications as directed. You were given a steroid taper. You should discontinue the steroids you were prescribed just prior to coming to the emergency room. You will take 40 mg or four 10 mg tablets for 3 days and then decrease to 30 mg or three 10 mg tablets for 3 days. Then you should decrease to 20 mg or two 10 mg tablets for 3 days. Finally you'll take one 10 mg tablet daily for 3 days. You were prescribed an antibiotic called Keflex. You'll take this every 8 hours or 3 times a day. You should take your first dose of this tonight and continue until it is gone, even if you feel 100% better. Continue to utilize your incentive spirometer (clear/blue device you inhale through) and Acapella (tubelike device you blow through) for 1 to 2 weeks or until symptoms resolve. Continue to monitor your blood glucose readings as per prior. Be aware with your steroid you may notice elevated blood glucose readings. Continue with your insulin and prior diabetic regimen. Continue to wear 2 L of oxygen as per prior. Drive the medication you will take twice a day, metoprolol tartrate. This is a medication that should help control your heart rate. Check your heart rate twice a day and record this in a journal. Bring this journal with to all medical appointments. Should symptoms return or worsen contact your primary care provider or return the emergency room. - Discharge Plan *PRESCRIPTION DRUG MONITORING PROGRAM REVIEWED*: No *COPY OF PRESCRIPTION DRUG MONITORING REPORT IN PATIENT CELY: No Prescriptions/Med Rec: cephALEXin [Keflex] 500 mg PO Q8H #7 cap Metoprolol Tartrate 25 mg PO BID #40 tablet predniSONE [Prednisone] See Taper PO DAILY #30 tablet Home Medications: Home Meds Albuterol Sulfate [Proair Digihaler] 90 mcg INH Q4HR PRN 02/04/20 [History] Ascorbate Calcium [Vitamin C] 500 mg PO TID 02/04/20 [History] Budesonide [Pulmicort] 1 dose INH TID 02/04/20 [History] Clopidogrel [Plavix] 75 mg PO DAILY 02/04/20 [History] Clorazepate [Clorazepate Dipotassium] 3.75 mg PO BID 02/04/20 [History] Docusate Sodium [Colace] 200 mg PO DAILY 02/04/20 [History] Dulaglutide [Trulicity] 1.5 mg SQ WEEKLY 02/04/20 [History] Ferrous Sulfate [Iron] 325 mg PO TID 02/04/20 [History] Fluticasone/Umeclidin/Vilanter [Trelegy Ellipta 100-62.5-25] 1 puff INH DAILY 02/04/20 [History] Insulin Aspart [NovoLOG] 14 - 22 units SQ TID 02/04/20 [History] Insulin Glargine,Hum.Rec.Anlog [Toujeo Solostar] 90 units SQ BEDTIME 02/04/20 [History] Montelukast [Singulair] 10 mg PO BEDTIME 02/04/20 [History] [place]-3/DHA/Epa/Fish Oil [[place] 3 500 Softgel] 1 gm PO DAILY 02/04/20 [History] Roflumilast [Daliresp] 500 mcg PO DAILY 02/04/20 [History] guaiFENesin [Mucinex] 600 mg PO BID 02/04/20 [History] metFORMIN [Glucophage XR] 500 mg PO BID 02/04/20 [History] ALPRAZolam [Alprazolam] 0.5 mg PO DAILY PRN 10/22/21 [History] Albuterol/Ipratropium [DuoNeb 3.0-0.5 MG/3 ML] 31 unit INH Q8H 10/22/21 [History] Cetirizine HCl [Zyrtec] 10 mg PO DAILY 10/22/21 [History] Famotidine 20 mg PO BID 10/22/21 [History] Furosemide [Lasix] 20 mg PO DAILY 10/22/21 [History] Potassium Chloride [Klor-Con 10] 10 meq PO DAILY 10/22/21 [History] Vitamin D3-50. 50,000 units PO ASDIRECTED 10/22/21 [History] atorvaSTATin [Lipitor] 40 mg PO BEDTIME 10/22/21 [History] Metoprolol Tartrate 25 mg PO BID #40 tablet 10/26/21 [Rx] cephALEXin [Keflex] 500 mg PO Q8H #7 cap 10/26/21 [Rx] predniSONE [Prednisone] See Taper PO DAILY #30 tablet 10/26/21 [Rx] Oxygen Therapy Mode: Nasal Cannula Oxygen Flow Rate (L/min): 2 (Baseline 2L O2) Patient Handouts: Chronic Respiratory Failure, Diabetes Mellitus and Sick Day Management, Sepsis, Diagnosis, Adult, Palliative Care, Preventing Diabetes Mellitus Complications Forms: ED Department Discharge Referrals: Silvia Feliciano NP [Primary Care Provider] - 11/03/21 1:30 pm (this is the check in time for your 1:45 appointment.) - Discharge Summary/Plan Comment DC Time >30 min.: Yes Total # of Minutes for Discharge Time: 45 - General Info Date of Service: 10/26/21 Admission Dx/Problem (Free Text: Admission Diagnosis/Problem Admission Diagnosis/Problem Pneumonia Functional Status: Reports: Pain Controlled, Tolerating Diet, Ambulating, Urinating, Incentive Spirometry, Other (Acapella ). Denies: New Symptoms - Review of Systems General: Reports: Weakness (Improving ). Denies: Fever, Fatigue, Malaise HEENT: Reports: No Symptoms. Denies: Headaches, Sore Throat Pulmonary: Reports: Shortness of Breath (Baseline ), Cough. Denies: Pleuritic Chest Pain, Sputum, Wheezing Cardiovascular: Reports: Dyspnea on Exertion (improved ). Denies: Chest Pain, Palpitations, Edema, Lightheadedness Gastrointestinal: Reports: No Symptoms. Denies: Abdominal Pain, Constipation, Diarrhea, Nausea, Vomiting Genitourinary: Reports: No Symptoms. Denies: Pain Musculoskeletal: Reports: Neck Pain (chronic ), Back Pain (chronic ) Skin: Reports: No Symptoms. Denies: Cyanosis Neurological: Reports: Difficulty Walking (baseline ), Weakness, Gait Disturbance. Denies: Confusion, Dizziness, Headache, Numbness, Seizure, Syncope, Tingling, Tremors, Change in Speech Psychiatric: Reports: No Symptoms - Patient Data Vitals - Most Recent: Last Vital Signs Temp 97.5 F 10/26/21 11:48 Pulse 103 H 10/26/21 11:48 Resp 22 H 10/26/21 11:48 BP 139/56 L 10/26/21 11:48 Pulse Ox 90 L 10/26/21 11:48 Weight - Most Recent: 162 lb 14.4 oz I&O - Last 24 hours: Intake & Output 10/25/21 10/26/21 10/26/21 22:59 06:59 14:59 Intake Total 1280 300 320 Output Total 1000 Balance 1280 -700 320 Lab Results - Last 24 hrs: Laboratory Results - last 24 hr 10/25/21 10/25/21 10/26/21 Range/Units 16:29 21:44 05:25 WBC 7.76 (3.98-10.04) K/mm3 RBC 4.33 (3.98-5.22) M/mm3 Hgb 11.1 L (11.2-15.7) gm/dl Hct 36.8 (34.1-44.9) % MCV 85.0 (79.4-94.8) fl MCH 25.6 (25.6-32.2) pg MCHC 30.2 L (32.2-35.5) g/dl RDW Std Deviation 42.1 (36.4-46.3) fL Plt Count 305 (182-369) K/mm3 MPV 9.7 (9.4-12.3) fl Neut % (Auto) 54.3 (34.0-71.1) % Lymph % (Auto) 33.9 (19.3-51.7) % [place] % (Auto) 7.5 (4.7-12.5) % Eos % (Auto) 0.1 L (0.7-5.8) Baso % (Auto) 0.3 (0.1-1.2) % Neut # (Auto) 4.22 (1.56-6.13) K/mm3 Lymph # (Auto) 2.63 (1.18-3.74) K/mm3 [place] # (Auto) 0.58 H (0.24-0.36) K/mm3 Eos # (Auto) 0.01 L (0.04-0.36) K/mm3 Baso # (Auto) 0.02 (0.01-0.08) K/mm3 Manual Slide Review Normal smear Sodium (136-145) mEq/L Potassium (3.5-5.1) mEq/L Chloride (98-107) mEq/L Carbon Dioxide (21-32) mEq/L Anion Gap (5-15) BUN (7-18) mg/dL Creatinine (0.55-1.02) mg/dL Est Cr Clr Drug Dosing mL/min Estimated GFR (MDRD) (>60) mL/min BUN/Creatinine Ratio (14-18) Glucose (70-99) mg/dL POC Glucose 328 H 179 H (70-99) mg/dL Calcium (8.5-10.1) mg/dL Magnesium (1.8-2.4) mg/dL Total Bilirubin (0.2-1.0) mg/dL AST (15-37) U/L ALT (14-59) U/L Alkaline Phosphatase (46-116) U/L C-Reactive Protein (<1.0) mg/dL Total Protein (6.4-8.2) g/dl Albumin (3.4-5.0) g/dl Globulin gm/dL Albumin/Globulin Ratio (1-2) 10/26/21 10/26/21 10/26/21 Range/Units 05:25 06:52 08:32 WBC (3.98-10.04) K/mm3 RBC (3.98-5.22) M/mm3 Hgb (11.2-15.7) gm/dl Hct (34.1-44.9) % MCV (79.4-94.8) fl MCH (25.6-32.2) pg MCHC (32.2-35.5) g/dl RDW Std Deviation (36.4-46.3) fL Plt Count (182-369) K/mm3 MPV (9.4-12.3) fl Neut % (Auto) (34.0-71.1) % Lymph % (Auto) (19.3-51.7) % [place] % (Auto) (4.7-12.5) % Eos % (Auto) (0.7-5.8) Baso % (Auto) (0.1-1.2) % Neut # (Auto) (1.56-6.13) K/mm3 Lymph # (Auto) (1.18-3.74) K/mm3 [place] # (Auto) (0.24-0.36) K/mm3 Eos # (Auto) (0.04-0.36) K/mm3 Baso # (Auto) (0.01-0.08) K/mm3 Manual Slide Review Sodium 147 H (136-145) mEq/L Potassium 4.1 (3.5-5.1) mEq/L Chloride 104 (98-107) mEq/L Carbon Dioxide 38 H (21-32) mEq/L Anion Gap 9.1 (5-15) BUN 17 (7-18) mg/dL Creatinine 0.7 (0.55-1.02) mg/dL Est Cr Clr Drug Dosing 65.06 mL/min Estimated GFR (MDRD) > 60 (>60) mL/min BUN/Creatinine Ratio 24.3 H (14-18) Glucose 88 (70-99) mg/dL POC Glucose 74 117 H (70-99) mg/dL Calcium 9.2 (8.5-10.1) mg/dL Magnesium 2.3 (1.8-2.4) mg/dL Total Bilirubin 0.4 (0.2-1.0) mg/dL AST 9 L (15-37) U/L ALT 30 (14-59) U/L Alkaline Phosphatase 58 (46-116) U/L C-Reactive Protein <0.2 (<1.0) mg/dL Total Protein 6.4 (6.4-8.2) g/dl Albumin 3.1 L (3.4-5.0) g/dl Globulin 3.3 gm/dL Albumin/Globulin Ratio 0.9 L (1-2) 10/26/21 Range/Units 11:45 WBC (3.98-10.04) K/mm3 RBC (3.98-5.22) M/mm3 Hgb (11.2-15.7) gm/dl Hct (34.1-44.9) % MCV (79.4-94.8) fl MCH (25.6-32.2) pg MCHC (32.2-35.5) g/dl RDW Std Deviation (36.4-46.3) fL Plt Count (182-369) K/mm3 MPV (9.4-12.3) fl Neut % (Auto) (34.0-71.1) % Lymph % (Auto) (19.3-51.7) % [place] % (Auto) (4.7-12.5) % Eos % (Auto) (0.7-5.8) Baso % (Auto) (0.1-1.2) % Neut # (Auto) (1.56-6.13) K/mm3 Lymph # (Auto) (1.18-3.74) K/mm3 [place] # (Auto) (0.24-0.36) K/mm3 Eos # (Auto) (0.04-0.36) K/mm3 Baso # (Auto) (0.01-0.08) K/mm3 Manual Slide Review Sodium (136-145) mEq/L Potassium (3.5-5.1) mEq/L Chloride (98-107) mEq/L Carbon Dioxide (21-32) mEq/L Anion Gap (5-15) BUN (7-18) mg/dL Creatinine (0.55-1.02) mg/dL Est Cr Clr Drug Dosing mL/min Estimated GFR (MDRD) (>60) mL/min BUN/Creatinine Ratio (14-18) Glucose (70-99) mg/dL POC Glucose 162 H (70-99) mg/dL Calcium (8.5-10.1) mg/dL Magnesium (1.8-2.4) mg/dL Total Bilirubin (0.2-1.0) mg/dL AST (15-37) U/L ALT (14-59) U/L Alkaline Phosphatase (46-116) U/L C-Reactive Protein (<1.0) mg/dL Total Protein (6.4-8.2) g/dl Albumin (3.4-5.0) g/dl Globulin gm/dL Albumin/Globulin Ratio (1-2) Med Orders - Current: Current Medications Acetaminophen (Acetaminophen 325 Mg Tab) 650 mg PO Q4H PRN PRN Reason: Pain (Mild 1-3)/fever Last Admin: 10/25/21 15:24 Dose: 650 mg Documented by: Albuterol (Albuterol 0.083% 2.5 Mg/3 Ml Neb Soln) 2.5 mg NEB Q2H PRN PRN Reason: Shortness Of Breath/wheezing Last Admin: 10/25/21 04:18 Dose: 2.5 mg Documented by: Albuterol/Ipratropium (Albuterol/Ipratropium 3.0-0.5 Mg/3 Ml Neb Soln) 3 ml NEB QIDRT [facility] Last Admin: 10/26/21 09:02 Dose: 3 ml Documented by: Alprazolam (Alprazolam 0.5 Mg Tab) 0.5 mg PO Q8H PRN PRN Reason: Anxiety Last Admin: 10/25/21 10:07 Dose: 0.5 mg Documented by: Ascorbic Acid (Ascorbic Acid 500 Mg Tab) 500 mg PO TID [facility] Last Admin: 10/26/21 08:54 Dose: 500 mg Documented by: Atorvastatin Calcium (Atorvastatin 40 Mg Tab) 40 mg PO BEDTIME [facility] Last Admin: 10/25/21 21:49 Dose: 40 mg Documented by: Budesonide (Budesonide 0.5 Mg/2 Ml Neb Susp) 0.5 mg INH TID@0600,1600,2100 [facility] Last Admin: 10/26/21 06:06 Dose: 0.5 mg Documented by: Cetirizine HCl (Cetirizine 10 Mg Tab) 10 mg PO DAILY [facility] Last Admin: 10/26/21 08:54 Dose: 10 mg Documented by: Clopidogrel Bisulfate (Clopidogrel 75 Mg Tab) 75 mg PO DAILY [facility] Last Admin: 10/26/21 08:54 Dose: 75 mg Documented by: Docusate Sodium (Docusate Sodium 100 Mg Cap) 200 mg PO DAILY [facility] Last Admin: 10/26/21 08:54 Dose: 200 mg Documented by: Enoxaparin Sodium (Enoxaparin 40 Mg/0.4 Ml Syringe) 40 mg SUBCUT DAILY [facility] Last Admin: 10/26/21 08:53 Dose: 40 mg Documented by: Famotidine (Famotidine 20 Mg Tab) 20 mg PO BID [facility] Last Admin: 10/26/21 08:54 Dose: 20 mg Documented by: Ferrous Sulfate (Ferrous Sulfate 324 Mg Tab.Ec) 324 mg PO TID [facility] Last Admin: 10/26/21 08:54 Dose: 324 mg Documented by: Furosemide (Furosemide 20 Mg Tab) 20 mg PO DAILY [facility] Last Admin: 10/26/21 08:54 Dose: 20 mg Documented by: Guaifenesin (Guaifenesin 600 Mg Tab.Er) 600 mg PO BID [facility] Last Admin: 10/26/21 08:54 Dose: 600 mg Documented by: Hydralazine HCl (Hydralazine 20 Mg/Ml Sdv) 10 mg IVPUSH Q4H PRN PRN Reason: Hypertension Ceftriaxone Sodium 2 gm/ (Sodium Chloride) 100 mls @ 200 mls/hr IV Q24H [facility] Last Admin: 10/26/21 08:55 Dose: 200 mls/hr Documented by: Insulin Glargine (Insulin Glargine,Hum.Rec.Anlog 100 Unit/Ml 3 Ml Pen) 55 unit SUBCUT BEDTIME [facility] Insulin Human Lispro (Insulin Lispro 100 Unit/Ml 3 Ml Kwikpen) 0 unit SUBCUT WITHMEALSANDBED [facility]; Protocol Last Admin: 10/26/21 12:00 Dose: 2 units Documented by: Magnesium Hydroxide (Magnesium Hydroxide 400 Mg/5 Ml Susp 30 Ml Cup) 30 ml PO Q12H PRN PRN Reason: Constipation Methylprednisolone Sodium Succinate (Methylprednisolone Sodium Succinate 40 Mg/1 Ml Sdv) 60 mg IVPUSH DAILY [facility] Last Admin: 10/26/21 08:53 Dose: 60 mg Documented by: Metoprolol Tartrate (Metoprolol Tartrate 25 Mg Tab) 12.5 mg PO Q12H [facility] Last Admin: 10/26/21 05:06 Dose: 12.5 mg Documented by: Montelukast Sodium (Montelukast 10 Mg Tab) 10 mg PO BEDTIME [facility] Last Admin: 10/25/21 21:50 Dose: 10 mg Documented by: Ondansetron HCl (Ondansetron 4 Mg/2 Ml Sdv) 4 mg IV Q6H PRN PRN Reason: Nausea/Vomiting Clorazepate 3.75 Mg (Tablet) 0 each PO BID [facility] Last Admin: 10/26/21 08:57 Dose: 1 each Documented by: Roflumilast [ Daliresp] 500 Mcg Tablet 0 each PO DAILY [facility] Last Admin: 10/26/21 08:57 Dose: 1 each Documented by: Fluticasone/Umeclidin/Vilanter 1 Each Blst.W.Dev 0 each INH 1000 [facility] Last Admin: 10/26/21 09:02 Dose: 1 each Documented by: Dulaglutide 1.5 Mg/0 (.5 Ml Ml) 0 each SUBCUT [place] [facility] Last Admin: 10/26/21 08:25 Dose: Not Given Documented by: Potassium Chloride (Potassium Chloride 10 Meq Tab.Er) 10 meq PO DAILY [facility] Last Admin: 10/26/21 08:54 Dose: 10 meq Documented by: Sodium Chloride (Sodium Chloride 0.9% 10 Ml Syringe) 10 ml FLUSH ASDIRECTED PRN PRN Reason: Keep Vein Open Last Admin: 10/22/21 06:52 Dose: 10 ml Documented by: Discontinued Medications Albuterol (Albuterol 0.083% 2.5 Mg/3 Ml Neb Soln) Confirm Administered Dose 10 mg .ROUTE .STK-MED ONE Stop: 10/22/21 07:14 Last Admin: 10/22/21 07:20 Dose: 10 mg Documented by: Albuterol (Albuterol 0.083% 2.5 Mg/3 Ml Neb Soln) 10 mg NEB ONETIME ONE Stop: 10/22/21 07:21 Last Admin: 10/22/21 07:20 Dose: 10 mg Documented by: Albuterol (Albuterol 0.083% 2.5 Mg/3 Ml Neb Soln) 2.5 mg NEB ONETIME ONE Stop: 10/22/21 13:29 Last Admin: 10/22/21 13:38 Dose: 2.5 mg Documented by: Albuterol/Ipratropium (Albuterol/Ipratropium 3.0-0.5 Mg/3 Ml Neb Soln) 3 ml NEB ONETIME ONE Stop: 10/22/21 06:46 Last Admin: 10/22/21 06:55 Dose: 3 ml Documented by: Alprazolam (Alprazolam 0.5 Mg Tab) 0.5 mg PO DAILY PRN PRN Reason: flying Alprazolam (Alprazolam 0.5 Mg Tab) 0.5 mg PO BEDTIME PRN PRN Reason: Anxiety Last Admin: 10/23/21 09:03 Dose: 0.5 mg Documented by: Budesonide (Budesonide 0.25 Mg/2 Ml Neb Susp) mg INH TID [place] Budesonide (Budesonide 0.5 Mg/2 Ml Neb Susp) Confirm Administered Dose 0.5 mg .ROUTE .STK-MED ONE Stop: 10/22/21 15:28 Last Admin: 10/22/21 15:32 Dose: Not Given Documented by: Famotidine (Famotidine 20 Mg Tab) 20 mg PO ONETIME ONE Stop: 10/22/21 21:01 Last Admin: 10/22/21 21:07 Dose: 20 mg Documented by: Magnesium Sulfate 2 gm/ Premix 50 mls @ 25 mls/hr IV ONETIME ONE Stop: 10/22/21 09:07 Last Admin: 10/22/21 07:21 Dose: 25 mls/hr Documented by: Levofloxacin/Dextrose 750 mg/ (Premix) 150 mls @ 100 mls/hr IV ONETIME ONE Stop: 10/22/21 08:42 Last Admin: 10/22/21 09:13 Dose: Not Given Documented by: Sodium Chloride (Normal Saline) 500 mls @ 1,000 mls/hr IV .BOLUS ONE Stop: 10/22/21 07:43 Last Admin: 10/22/21 07:50 Dose: 1,000 mls/hr Documented by: Azithromycin 500 mg/ Sodium (Chloride) 250 mls @ 250 mls/hr IV ONETIME ONE Stop: 10/22/21 08:51 Last Admin: 10/22/21 09:41 Dose: 250 mls/hr Documented by: Ceftriaxone Sodium 1 gm/ (Sodium Chloride) 100 mls @ 200 mls/hr IV ONETIME ONE Stop: 10/22/21 08:21 Last Admin: 10/23/21 14:24 Dose: Not Given Documented by: Ceftriaxone Sodium 1 gm/ (Sodium Chloride) 100 mls @ 200 mls/hr IV ONETIME ONE Stop: 10/22/21 08:32 Last Admin: 10/22/21 08:48 Dose: 200 mls/hr Documented by: Sodium Chloride (Normal Saline) 100 mls @ 75 mls/hr IV ASDIRECTED [facility] Last Admin: 10/22/21 08:42 Dose: 75 mls/hr Documented by: Azithromycin 500 mg/ Sodium (Chloride) 250 mls @ 250 mls/hr IV Q24H [facility] Last Admin: 10/23/21 08:56 Dose: 250 mls/hr Documented by: Insulin Glargine (Insulin Glarg,Human.Rec.Analog 100 Unit/Ml) 72 unit SUBCUT BEDTIME [facility] Last Admin: 10/22/21 21:51 Dose: Not Given Documented by: Insulin Glargine (Insulin Glargine,Hum.Rec.Anlog 100 Unit/Ml 3 Ml Pen) 72 unit SUBCUT BEDTIME [facility] Last Admin: 10/23/21 20:43 Dose: 72 units Documented by: Insulin Glargine (Insulin Glargine,Hum.Rec.Anlog 100 Unit/Ml 3 Ml Pen) 65 unit SUBCUT BEDTIME [facility] Last Admin: 10/24/21 20:52 Dose: 65 units Documented by: Insulin Glargine (Insulin Glargine,Hum.Rec.Anlog 100 Unit/Ml 3 Ml Pen) 60 unit SUBCUT DAILY [facility] Last Admin: 10/26/21 10:02 Dose: Not Given Documented by: Iopamidol (Iopamidol 755 Mg/Ml 100 Ml Bottle) 100 ml IVPUSH ONETIME ONE Stop: 10/22/21 08:24 Last Admin: 10/22/21 08:42 Dose: 100 ml Documented by: Lorazepam (Lorazepam 2 Mg/Ml Sdv) 0.5 mg IVPUSH ONETIME ONE Stop: 10/22/21 08:10 Last Admin: 10/22/21 08:26 Dose: 0.5 mg Documented by: Methylprednisolone Sodium Succinate (Methylprednisolone Sodium Succinate 125 Mg/2 Ml Sdv) 125 mg IVPUSH ONETIME ONE Stop: 10/22/21 07:09 Last Admin: 10/22/21 07:17 Dose: 125 mg Documented by: Metoprolol Tartrate (Metoprolol Tartrate 25 Mg Tab) 12.5 mg PO Q12H [facility] Last Admin: 10/25/21 15:25 Dose: 12.5 mg Documented by: Non-Formulary Medication (Vitamin D3-50.) 50,000 units PO ASDIRECTED [facility] Fluticasone/Umeclidin/Vilanter 1 Each Blst.W.Dev 0 each INH DAILY [facility] Patient Own Medication (Patient's Own Medication 1 Each) 1 each INH DAILY@1000 [facility] Senna/Docusate Sodium (Docusate Sodium/Sennosides 50-8.6 Mg Tab) 1 tab PO BID PRN PRN Reason: Constipation Sodium Chloride (Sodium Chloride 0.9% 10 Ml Syringe) 10 ml FLUSH ONETIME PRN PRN Reason: IV FLUSH Last Admin: 10/22/21 08:43 Dose: 10 ml Documented by: - Exam Quality Assessment: Reports: Supplemental Oxygen (2L - baseline home rate ), DVT Prophylaxis. Denies: Urine Catheter General: Reports: Alert, Oriented, Cooperative, No Acute Distress HEENT: Reports: Pupils Equal, Pupils Reactive, Mucous Membr. Moist/[place] Neck: Reports: Supple, Trachea Midline Lungs: Reports: Normal Respiratory Effort, Decreased Breath Sounds, Rhonchi (mild - improved ), Wheezing (mild ). Denies: Crackles
[2021-10-26] MEDS ORDERED: Insulin Glargine,Hum.Rec.Anlog 100 UNIT/ML 3 ML Pen SUBCUT SCH ×2 (21:00)
--- NOTE | 2021-10-29 18:43 | PCM.EKG ---
#1 Interpretation EKG Date: 10/22/21 Time: 06:41 Rhythm: Other (Sinus tachycardia) Rate (Beats/Min): 137 [place]: Normal P-Wave: Present (? biatrial enlargement?) QRS: Normal ST-T: Normal QT: Normal Comparison: No Change (02/04/2020)
== END 2021-10-26 14:46 | disposition home or self-care (01) | DRG 720 ==
LOC: JD.ED 06:28 → JD.ICU 14:51 → JD.MS 10-25 16:29
PROVIDERS: ADMIT Internal Medicine; ATTEND Internal Medicine
PROC: 5A09457 Assistance with Respiratory Ventilation, 24-96 Consecutive Hours, Continuous Positive Airway Pressure (ICD-10-PCS; principal; 2021-10-22)
DX: A41.9 Sepsis, unspecified organism (principal); J18.9 Pneumonia, unspecified organism; J96.21 Acute and chronic respiratory failure with hypoxia; E78.5 Hyperlipidemia, unspecified; J44.1 Chronic obstructive pulmonary disease with (acute) exacerbation; Z96.0 Presence of urogenital implants; F41.9 Anxiety disorder, unspecified; E11.9 Type 2 diabetes mellitus without complications; E55.9 Vitamin D deficiency, unspecified; R65.20 Severe sepsis without septic shock; N39.0 Urinary tract infection, site not specified; E61.1 Iron deficiency; D24.1 Benign neoplasm of right breast; H54.7 Unspecified visual loss; E78.00 Pure hypercholesterolemia, unspecified; J44.0 Chronic obstructive pulmonary disease with (acute) lower respiratory infection; R91.1 Solitary pulmonary nodule; D50.0 Iron deficiency anemia secondary to blood loss (chronic); K92.2 Gastrointestinal hemorrhage, unspecified; Z20.822 Contact with and (suspected) exposure to COVID-19; Z79.02 Long term (current) use of antithrombotics/antiplatelets; Z79.52 Long term (current) use of systemic steroids; Z79.899 Other long term (current) drug therapy; Z88.6 Allergy status to analgesic agent; Z87.01 Personal history of pneumonia (recurrent); Z86.010 Personal history of colon polyps; Z87.442 Personal history of urinary calculi; Z90.710 Acquired absence of both cervix and uterus; Z87.440 Personal history of urinary (tract) infections; Z87.891 Personal history of nicotine dependence; Z86.718 Personal history of other venous thrombosis and embolism; Z79.4 Long term (current) use of insulin; Z88.5 Allergy status to narcotic agent; Z91.040 Latex allergy status; Z88.0 Allergy status to penicillin; Z88.1 Allergy status to other antibiotic agents; Z88.8 Allergy status to other drugs, medicaments and biological substances
CPT/HCPCS: 0240U; 36415; 36600; 71045; 71045-26; 71275; 71275-26; 80053; 81001; 82803; 82947; 83605; 83735; 83880; 84145; 84484; 85007; 85025; 85027; 85379; 86140; 86738; 87040; 87641; 87899; 93005; 93970; 93970-26; 94640; 94660; 94667; 94668; 94762; 96365; 96367; 96375; 97116-GP; 97162-GP; 99285-25; A9270-GY; J0456; J0696; J1650; J1815; J1815-GY; J2060; J2920; J2930; J3475; J7030; J7050; J7620-GY; Q9967

== ENCOUNTER 2021-11-25 09:05 | Emergency (ER) | payer BC ==
[2021-11-25] MEDS ORDERED: Albuterol/Ipratropium 3.0-0.5 MG/3 ML Neb Soln NEB ONE (09:36)
[2021-11-25] MEDS ORDERED: methylPREDNISolone Sodium Succinate 125 MG/2 ML SDV IVPUSH ONE (09:36)
[2021-11-25] MEDS ORDERED: Sodium Chloride 0.9% 10 ML Syringe FLUSH PRN (09:36)
[2021-11-25 11:35] LABS: CORONAVIRUS COVID-19 NAA POSITIVE (NEGATIVE)
== END 2021-11-25 12:40 | disposition home or self-care (01) ==
LOC: JD.ED 09:05
DX: U07.1 COVID-19 (principal); J43.9 Emphysema, unspecified; R00.0 Tachycardia, unspecified; E11.9 Type 2 diabetes mellitus without complications; E66.9 Obesity, unspecified; Z68.30 Body mass index [BMI] 30.0-30.9, adult; Z87.891 Personal history of nicotine dependence; Z91.040 Latex allergy status; Z88.8 Allergy status to other drugs, medicaments and biological substances; Z88.1 Allergy status to other antibiotic agents; Z88.0 Allergy status to penicillin; Z88.5 Allergy status to narcotic agent; Z79.02 Long term (current) use of antithrombotics/antiplatelets; Z79.4 Long term (current) use of insulin; Z79.899 Other long term (current) drug therapy
CPT/HCPCS: 0240U; 36415; 71045; 80053; 85025; 86140; 93005; 94640; 96374; 99285; J2930; J7620-GY

== ENCOUNTER 2022-08-30 08:39 | Emergency (ER) | payer BC ==
[2022-08-30] MEDS ORDERED: Sodium Chloride 0.9% 1,000 ML IV SCH (09:15)
[2022-08-30] MEDS ORDERED: cefTRIAXone 2 GM in Sodium Chloride 0.9% 100 ML IV ONE (11:06)
== END 2022-08-30 12:32 | disposition home or self-care (01) ==
LOC: JD.ED 08:39
DX: N39.0 Urinary tract infection, site not specified (principal); E78.00 Pure hypercholesterolemia, unspecified; J43.9 Emphysema, unspecified; E11.9 Type 2 diabetes mellitus without complications; E66.9 Obesity, unspecified; Z68.30 Body mass index [BMI] 30.0-30.9, adult; Z87.442 Personal history of urinary calculi; Z91.040 Latex allergy status; Z88.8 Allergy status to other drugs, medicaments and biological substances; Z88.0 Allergy status to penicillin; Z88.5 Allergy status to narcotic agent; Z79.02 Long term (current) use of antithrombotics/antiplatelets; Z79.4 Long term (current) use of insulin; Z79.899 Other long term (current) drug therapy
CPT/HCPCS: 36415; 74176; 80053; 81001; 83605; 85025; 87040; 87086; 87088; 87186; 96361; 96365; 99284; J0696; J7030

== ENCOUNTER 2023-01-26 05:56 | Emergency (ER) | payer BC ==
[2023-01-26 07:21] LABS: ESTIMATED GFR 71 mL/min (>60)
== END 2023-01-26 10:35 | disposition home or self-care (01) ==
LOC: JD.ED 05:56
DX: R06.02 Shortness of breath (principal); R53.1 Weakness; J44.9 Chronic obstructive pulmonary disease, unspecified; E66.9 Obesity, unspecified; E11.9 Type 2 diabetes mellitus without complications; E78.00 Pure hypercholesterolemia, unspecified; Z72.3 Lack of physical exercise; Z87.891 Personal history of nicotine dependence; Z79.02 Long term (current) use of antithrombotics/antiplatelets; Z79.899 Other long term (current) drug therapy; Z79.4 Long term (current) use of insulin; Z79.84 Long term (current) use of oral hypoglycemic drugs; Z88.0 Allergy status to penicillin; Z88.5 Allergy status to narcotic agent; Z88.1 Allergy status to other antibiotic agents; Z88.6 Allergy status to analgesic agent; Z91.040 Latex allergy status; Z88.8 Allergy status to other drugs, medicaments and biological substances
CPT/HCPCS: 36415; 71045; 71045-26; 80053; 81001; 83880; 84484; 85025; 87086; 87088; 87186; 93005; 93010; 99284; 99285

== ENCOUNTER 2023-03-30 09:32 | Emergency (ER) | payer BC ==
[2023-03-30 10:42] LABS: HEMATOCRIT 34.8 % (34.1-44.9); HEMOGLOBIN 10.5 gm/dl (11.2-15.7); MEAN CORPUSCULAR HEMOGLOBIN 25.5 pg (25.6-32.2); MEAN CORPUSCULAR HGB CONC 30.2 g/dl (32.2-35.5); MEAN CORPUSCULAR VOLUME 84.7 fl (79.4-94.8); MEAN PLATELET VOLUME 9.8 fl (9.4-12.3); PLATELET COUNT,PLT 269 K/mm3 (182-369); RED BLOOD CELL COUNT 4.11 M/mm3 (3.98-5.22); WHITE BLOOD CELL COUNT,WBC 6.53 K/mm3 (3.98-10.04)
[2023-03-30 10:56] LABS: INR 1.01; PROTHROMBIN TIME 10.8 SECONDS (9.7-12.0)
[2023-03-30 11:03] LABS: PTT,PARTIAL THROMBOPLSTIN TIME 25.6 SECONDS (21.7-31.4)
[2023-03-30 11:13] LABS: ALBUMIN 3.8 g/dl (3.4-5.0); ANION GAP 10.2 (5-15); BILIRUBIN TOTAL 0.6 mg/dL (0.2-1.0); BUN/CREATININE RATIO 12.2 (14-18); CALCIUM 9.5 mg/dL (8.5-10.1); CREATININE 0.9 mg/dL (0.55-1.02); EST CRCL DRUG DOSING (CG) 49.95 mL/min; POTASSIUM,K 4.2 mEq/L (3.5-5.1); PROTEIN TOTAL,TP 7.6 g/dl (6.4-8.2); TSH 1.909 uIU/mL (0.358-3.74)
[2023-03-30 11:24] LABS: BAND PERCENT MAN 0 % (0-10); BASOPHILS PERCENT MAN 0 (0.1-1.2); EOSINOPHILS PERCENT MAN 1 % (0.7-5.8); LYMPHOCYTES % ATYPICAL MANUAL 0 %; LYMPHOCYTES PERCENT MAN 23 % (20-40); MONOCYTES PERCENT MAN 1 % (2-10)
[2023-03-30 11:25] LABS: PLATELET COUNT ESTIMATE ADEQUATE
[2023-03-30 11:30] LABS: APPEARANCE,URINE SLT CLOUDY (Clear); BILIRUBIN,URINE NEGATIVE (Negative); COLOR,URINE YELLOW (Yellow); GLUCOSE,URINE NEGATIVE (Negative); KETONES,URINE NEGATIVE (Negative); LEUKOCYTE ESTERASE,URINE 1+ (Negative); NITRITE,URINE NEGATIVE (Negative); OCCULT BLOOD,URINE NEGATIVE (Negative); PROTEIN,URINE 2+ (Negative); UROBILINOGEN,URINE 0.2 (0.2-1.0)
[2023-03-30 11:52] LABS: CORONAVIRUS COVID-19 NAA NEGATIVE (NEGATIVE); INFLUENZA A NAA NEGATIVE (NEGATIVE); RESPIRATORY SYNCYTIAL VIR NAA NEGATIVE (NEGATIVE)
[2023-03-30 11:58] LABS: D-DIMER QUANTITATIVE 0.96 mg/L (0.19-0.50)
[2023-03-30] MEDS ORDERED: Furosemide 40 MG/4 ML VIAL IVPUSH ONE (12:18)
[2023-03-30] MEDS ORDERED: methylPREDNISolone Sodium Succinate 125 MG/2 ML SDV IVPUSH ONE (12:18)
[2023-03-30] MEDS ORDERED: Sodium Chloride 0.9% 10 ML Syringe FLUSH PRN (12:19)
[2023-03-30] MEDS ORDERED: Iopamidol 755 Mg/ML 100 ML Bottle IVPUSH ONE (12:19)
[2023-03-30] MEDS ORDERED: Sodium Chloride 0.9% 100 ML IV SCH (12:30)
[2023-03-30 13:35] LABS: BACTERIA,URINE FEW /hpf (FEW); EPITHELIAL CELLS,URINE 0-5 /hpf (0-5); MUCUS,URINE NOT SEEN /hpf (FEW); RBC,URINE 0-5 /hpf (0-5); WBC,URINE 0-5 /hpf (0-5)
== END 2023-03-30 14:05 | disposition home or self-care (01) ==
LOC: JD.ED 09:32
DX: J44.1 Chronic obstructive pulmonary disease with (acute) exacerbation (principal); E11.9 Type 2 diabetes mellitus without complications; E66.9 Obesity, unspecified; Z68.30 Body mass index [BMI] 30.0-30.9, adult; Z87.891 Personal history of nicotine dependence; Z91.040 Latex allergy status; Z88.1 Allergy status to other antibiotic agents; Z88.8 Allergy status to other drugs, medicaments and biological substances; Z88.0 Allergy status to penicillin; Z88.5 Allergy status to narcotic agent; Z79.02 Long term (current) use of antithrombotics/antiplatelets; Z79.899 Other long term (current) drug therapy; Z79.4 Long term (current) use of insulin; Z20.822 Contact with and (suspected) exposure to COVID-19; Z99.81 Dependence on supplemental oxygen
CPT/HCPCS: 0241U; 36415; 71045; 71275; 80053; 81001; 83735; 83880; 84443; 84484; 85007; 85027; 85379; 85610; 85730; 87040; 87086; 87088; 87186; 93005; 96374; 96375; 99285; J1940; J2930; J3490; Q9967

== ENCOUNTER 2023-03-31 22:25 | Emergency (ER) | payer BC ==
[2023-03-31] MEDS ORDERED: cefTRIAXone 2 GM in Sodium Chloride 0.9% 100 ML IV ONE (22:57)
[2023-03-31] MEDS ORDERED: methylPREDNISolone Sodium Succinate 125 MG/2 ML SDV IVPUSH ONE (22:58)
[2023-03-31 23:14] LABS: BASOPHILS ABSOLUTE AUTO 0.03 K/mm3 (0.01-0.08); BASOPHILS PERCENT AUTO 0.3 % (0.1-1.2); EOSINOPHILS PERCENT AUTO 0 (0.7-5.8); HEMATOCRIT 33.6 % (34.1-44.9); IMMATURE GRAN ABSOLUTE AUTO 0.08 K/mm3 (0.00-0.10); IMMATURE GRAN PERCENT AUTO 0.8 % (<=1.0); LYMPHOCYTES ABSOLUTE AUTO 1.68 K/mm3 (1.18-3.74); LYMPHOCYTES PERCENT AUTO 17.5 % (19.3-51.7); MEAN CORPUSCULAR HGB CONC 29.8 g/dl (32.2-35.5); MONOCYTES ABSOLUTE AUTO 0.76 K/mm3 (0.24-0.36); MONOCYTES PERCENT AUTO 7.9 % (4.7-12.5); NEUTROPHILS ABSOLUTE AUTO 7.07 K/mm3 (1.56-6.13); NEUTROPHILS PERCENT AUTO 73.5 % (34.0-71.1); PLATELET COUNT,PLT 295 K/mm3 (182-369); WHITE BLOOD CELL COUNT,WBC 9.62 K/mm3 (3.98-10.04)
[2023-03-31 23:37] LABS: ALANINE AMINOTRANSFERASE,ALT 47 U/L (14-59); ALBUMIN 3.6 g/dl (3.4-5.0); ALKALINE PHOSPHATASE 88 U/L (46-116); ANION GAP 9.1 (5-15); ASPARTATE AMNIOTRANSFERASE,AST 31 U/L (15-37); BILIRUBIN TOTAL 0.5 mg/dL (0.2-1.0); BLOOD UREA NITROGEN,BUN 23 mg/dL (7-18); BUN/CREATININE RATIO 20.9 (14-18); CALCIUM 9.3 mg/dL (8.5-10.1); CARBON DIOXIDE,CO2 31 mEq/L (21-32); CHLORIDE,CL 100 mEq/L (98-107); CREATININE 1.1 mg/dL (0.55-1.02); ESTIMATED GFR 56 mL/min (>60); GLUCOSE RANDOM 246 mg/dL (70-99); POTASSIUM,K 4.1 mEq/L (3.5-5.1); PROTEIN TOTAL,TP 7.4 g/dl (6.4-8.2); SODIUM,NA 136 mEq/L (136-145)
[2023-03-31] MEDS ORDERED: Albuterol/Ipratropium 3.0-0.5 MG/3 ML Neb Soln NEB ONE (23:57)
== END 2023-04-01 00:45 | disposition home or self-care (01) ==
LOC: JD.ED 22:25
DX: J44.9 Chronic obstructive pulmonary disease, unspecified (principal); N39.0 Urinary tract infection, site not specified; E11.9 Type 2 diabetes mellitus without complications; E66.9 Obesity, unspecified; Z68.30 Body mass index [BMI] 30.0-30.9, adult; Z88.0 Allergy status to penicillin; Z88.5 Allergy status to narcotic agent; Z91.040 Latex allergy status; Z79.02 Long term (current) use of antithrombotics/antiplatelets; Z79.899 Other long term (current) drug therapy; Z87.891 Personal history of nicotine dependence
CPT/HCPCS: 36415; 71045; 80053; 85025; 93005; 94640; 96365; 96375; 99285; J0696; J2930; J3490; 93010; 99284; J7620-GY

== ENCOUNTER 2023-05-06 18:52 | Inpatient (IN) | payer BC ==
[2023-05-06] MEDS ORDERED: Sodium Chloride 0.9% 10 ML Syringe FLUSH PRN (19:04)
[2023-05-06] MEDS ORDERED: methylPREDNISolone Sodium Succinate 125 MG/2 ML SDV IVPUSH ONE (19:20)
[2023-05-06] MEDS: Albuterol 0.083% 2.5 MG/3 ML Neb Soln NEB SCH ×3 (19:30→19:50)
[2023-05-06 19:33] LABS: BASOPHILS ABSOLUTE AUTO 0.01 K/mm3 (0.01-0.08); BASOPHILS PERCENT AUTO 0.2 % (0.1-1.2); EOSINOPHILS PERCENT AUTO 1.6 (0.7-5.8); HEMATOCRIT 31.1 % (34.1-44.9); HEMOGLOBIN 9.1 gm/dl (11.2-15.7); IMMATURE GRAN ABSOLUTE AUTO 0.09 K/mm3 (0.00-0.10); IMMATURE GRAN PERCENT AUTO 1.5 % (<=1.0); LYMPHOCYTES ABSOLUTE AUTO 1.59 K/mm3 (1.18-3.74); LYMPHOCYTES PERCENT AUTO 25.8 % (19.3-51.7); MEAN CORPUSCULAR HEMOGLOBIN 25.2 pg (25.6-32.2); MEAN CORPUSCULAR HGB CONC 29.3 g/dl (32.2-35.5); MEAN CORPUSCULAR VOLUME 86.1 fl (79.4-94.8); MEAN PLATELET VOLUME 9.7 fl (9.4-12.3); MONOCYTES ABSOLUTE AUTO 0.34 K/mm3 (0.24-0.36); MONOCYTES PERCENT AUTO 5.5 % (4.7-12.5); NEUTROPHILS ABSOLUTE AUTO 4.03 K/mm3 (1.56-6.13); NEUTROPHILS PERCENT AUTO 65.4 % (34.0-71.1); PLATELET COUNT,PLT 279 K/mm3 (182-369); RED BLOOD CELL COUNT 3.61 M/mm3 (3.98-5.22); WHITE BLOOD CELL COUNT,WBC 6.16 K/mm3 (3.98-10.04)
[2023-05-06 19:54] LABS: INR 0.95; PROTHROMBIN TIME 10.2 SECONDS (9.7-12.0)
[2023-05-06 19:55] LABS: PTT,PARTIAL THROMBOPLSTIN TIME 24.5 SECONDS (21.7-31.4)
[2023-05-06 20:01] LABS: D-DIMER QUANTITATIVE 1.12 mg/L (0.19-0.50)
[2023-05-06 20:03] LABS: ALBUMIN 3.4 g/dl (3.4-5.0); ANION GAP 10.7 (5-15); BILIRUBIN TOTAL 0.4 mg/dL (0.2-1.0); CALCIUM 9.3 mg/dL (8.5-10.1); CREATININE 0.8 mg/dL (0.55-1.02); EST CRCL DRUG DOSING (CG) 56.19 mL/min; MAGNESIUM 1.8 mg/dL (1.8-2.4); POTASSIUM,K 3.7 mEq/L (3.5-5.1); PROTEIN TOTAL,TP 6.9 g/dl (6.4-8.2)
[2023-05-06] MEDS ORDERED: Sodium Chloride 0.9% 10 ML Syringe FLUSH ONE (21:19)
[2023-05-06] MEDS ORDERED: Iopamidol 755 Mg/ML 100 ML Bottle IVPUSH ONE (21:19)
[2023-05-06] MEDS ORDERED: Sodium Chloride 0.9% 100 ML IV SCH (21:30)
[2023-05-06] MEDS ORDERED: Azithromycin 250 MG Tab PO ONE (21:43)
[2023-05-06] MEDS ORDERED: Ipratropium 0.02% 0.5 MG/2.5 ML Neb Soln NEB SCH (21:45)
[2023-05-06] MEDS ORDERED: ALPRAZolam 0.5 MG Tab PO PRN (21:45)
[2023-05-06] MEDS ORDERED: DULAGLUTIDE 1.5 MG/0.5 ML SQ SCH (21:45)
[2023-05-06] MEDS ORDERED: BENZONATATE 200 MG PO PRN (21:45)
[2023-05-06] MEDS ORDERED: VITAMIN D3 PO SCH (21:45)
[2023-05-07] MEDS: Ipratropium 0.02% 0.5 MG/2.5 ML Neb Soln NEB SCH ×2 (03:25→09:11)
[2023-05-07 05:26] LABS: BASOPHILS ABSOLUTE AUTO 0.01 K/mm3 (0.01-0.08); BASOPHILS PERCENT AUTO 0.2 % (0.1-1.2); EOSINOPHILS ABSOLUTE AUTO 0.01 K/mm3 (0.04-0.36); EOSINOPHILS PERCENT AUTO 0.2 (0.7-5.8); HEMOGLOBIN 9.2 gm/dl (11.2-15.7); IMMATURE GRAN ABSOLUTE AUTO 0.23 K/mm3 (0.00-0.10); LYMPHOCYTES ABSOLUTE AUTO 0.63 K/mm3 (1.18-3.74); MEAN CORPUSCULAR HEMOGLOBIN 25.1 pg (25.6-32.2); MEAN CORPUSCULAR HGB CONC 29.7 g/dl (32.2-35.5); MEAN CORPUSCULAR VOLUME 84.5 fl (79.4-94.8); MEAN PLATELET VOLUME 10.4 fl (9.4-12.3); MONOCYTES ABSOLUTE AUTO 0.04 K/mm3 (0.24-0.36); MONOCYTES PERCENT AUTO 0.7 % (4.7-12.5); NEUTROPHILS ABSOLUTE AUTO 4.79 K/mm3 (1.56-6.13); NEUTROPHILS PERCENT AUTO 83.9 % (34.0-71.1); PLATELET COUNT,PLT 282 K/mm3 (182-369); RED BLOOD CELL COUNT 3.67 M/mm3 (3.98-5.22); WHITE BLOOD CELL COUNT,WBC 5.71 K/mm3 (3.98-10.04)
[2023-05-07 05:55] LABS: ANION GAP 14.3 (5-15); BUN/CREATININE RATIO 16.7 (14-18); CALCIUM 9.4 mg/dL (8.5-10.1); CREATININE 0.9 mg/dL (0.55-1.02); EST CRCL DRUG DOSING (CG) 49.95 mL/min; POTASSIUM,K 4.3 mEq/L (3.5-5.1)
[2023-05-07] MEDS: Albuterol 0.5% 2.5 MG/0.5 ML Neb Soln NEB SCH ×4 (06:09→21:10)
[2023-05-07] MEDS ORDERED: Temazepam 7.5 MG Cap PO PRN (08:24)
[2023-05-07] MEDS ORDERED: Albuterol/Ipratropium 3.0-0.5 MG/3 ML Neb Soln NEB PRN (08:24)
[2023-05-07] MEDS ORDERED: Non-Formulary Medication 1 Each (Ascorbate Calcium [Vitamin C] 500 MG Tablet) PO SCH (09:00)
[2023-05-07] MEDS: Insulin Regular, Human 100 Units/ML 3 ML Vial SUBCUT SCH ×4 (09:00→22:54)
[2023-05-07] MEDS ORDERED: Potassium Chloride 10 MEQ Tab.ER PO SCH (09:00)
[2023-05-07] MEDS ORDERED: CLORAZEPATE 3.75 MG PO SCH (09:00)
[2023-05-07] MEDS ORDERED: Azithromycin 250 MG Tab PO SCH (09:00)
[2023-05-07] MEDS ORDERED: FISH OIL PO SCH (09:00)
[2023-05-07] MEDS ORDERED: Non-Formulary Medication 1 Each (Pantoprazole Sodium 40 MG Tablet.Dr) PO SCH (09:00)
[2023-05-07] MEDS ORDERED: Non-Formulary Medication 1 Each (Fluticasone/Umeclidin/Vilanter 1 EACH Blst.W.Dev) INH SCH (09:00)
[2023-05-07] MEDS ORDERED: DHA PO SCH (09:00)
[2023-05-07] MEDS ORDERED: Furosemide 20 MG Tab PO SCH (09:00)
[2023-05-07] MEDS: Azithromycin 500 MG in Sodium Chloride 0.9% 250 ML IV SCH (09:00)
[2023-05-07] MEDS ORDERED: Non-Formulary Medication 1 Each (Ferrous Sulfate 325 MG Tablet) PO SCH (09:00)
[2023-05-07] MEDS ORDERED: OMEGA PO SCH (09:00)
[2023-05-07] MEDS ORDERED: EPA PO SCH (09:00)
[2023-05-07] MEDS ORDERED: Non-Formulary Medication 1 Each (Metformin 500 MG Tab.Er) PO SCH (09:00)
[2023-05-07] MEDS ORDERED: [UNRECOGNIZED DRUG - OTHER] PO SCH (09:00)
[2023-05-07] MEDS: Heparin Sodium 5,000 Units/ML Vial SUBCUT SCH ×3 (09:01→23:21)
[2023-05-07] MEDS: methylPREDNISolone Sodium Succinate 125 MG/2 ML SDV IVPUSH SCH ×3 (09:01→23:21)
[2023-05-07] MEDS: Docusate Sodium 100 MG Cap PO SCH ×2 (09:21→09:28)
[2023-05-07] MEDS: Famotidine 20 MG Tab PO SCH ×2 (09:22→22:51)
[2023-05-07] MEDS: guaiFENesin 600 MG Tab.ER PO SCH ×2 (09:22→22:52)
[2023-05-07] MEDS: Clopidogrel 75 MG Tab PO SCH (09:22)
[2023-05-07] MEDS ORDERED: Benzonatate 100 MG Cap PO PRN (09:48)
[2023-05-07] MEDS: CLORAZEPATE 3.75 MG PO SCH ×2 (11:27→22:52)
[2023-05-07] MEDS: ROFLUMILAST 500 MCG PO SCH ×2 (11:27→22:53)
[2023-05-07] MEDS: Fish Oil/Omega-3 Fatty Acids 1 Gm Cap PO SCH (11:27)
[2023-05-07] MEDS: metFORMIN 500 MG Tab PO SCH ×2 (11:27→22:51)
[2023-05-07] MEDS ORDERED: hydrOXYzine HCl 10 MG Tab PO PRN (14:58)
[2023-05-07] MEDS: Albuterol 0.083% 2.5 MG/3 ML Neb Soln NEB PRN (20:58)
[2023-05-07] MEDS ORDERED: Montelukast 10 MG Tab PO SCH (21:00)
[2023-05-07] MEDS ORDERED: Non-Formulary Medication 1 Each (Insulin Glargine,Hum.Rec.Anlog [Toujeo Solostar] 300 UNIT SQ SCH (21:00)
[2023-05-07] MEDS ORDERED: atorvaSTATin 40 MG Tab PO SCH (21:00)
[2023-05-07] MEDS ORDERED: Non-Formulary Medication 1 Each (Dulaglutide 1.5 MG/0.5 ML Pen) SQ SCH (21:00)
[2023-05-07] MEDS ORDERED: Insulin Lispro 100 Unit/ML 3 ML KwikPen SUBCUT SCH (22:45)
[2023-05-07] MEDS: Insulin Glargine,Human Rec. Analog 100 Units/ML 3 ML Pen SUBCUT SCH (22:49)
[2023-05-07] MEDS: atorvaSTATin 40 MG Tab PO SCH (22:52)
[2023-05-07] MEDS: oxyCODONE 5 MG Tab PO PRN (23:09)
[2023-05-08] MEDS: Acetaminophen 325 MG Tab PO PRN ×2 (00:29→22:20)
[2023-05-08] MEDS: methylPREDNISolone Sodium Succinate 125 MG/2 ML SDV IVPUSH SCH ×4 (00:30→23:28)
[2023-05-08] MEDS: Heparin Sodium 5,000 Units/ML Vial SUBCUT SCH ×4 (00:31→23:27)
[2023-05-08 05:54] LABS: A/G RATIO 0.9 (1-2); ALBUMIN 3.4 g/dl (3.4-5.0); ANION GAP 13.2 (5-15); BILIRUBIN TOTAL 0.4 mg/dL (0.2-1.0); BUN/CREATININE RATIO 25.6 (14-18); CALCIUM 9.2 mg/dL (8.5-10.1); CREATININE 0.9 mg/dL (0.55-1.02); EST CRCL DRUG DOSING (CG) 49.95 mL/min; POTASSIUM,K 4.2 mEq/L (3.5-5.1)
[2023-05-08 05:55] LABS: EOSINOPHILS PERCENT AUTO 0 (0.7-5.8); HEMATOCRIT 30.2 % (34.1-44.9); HEMOGLOBIN 9.1 gm/dl (11.2-15.7); IMMATURE GRAN ABSOLUTE AUTO 0.11 K/mm3 (0.00-0.10); IMMATURE GRAN PERCENT AUTO 1.8 % (<=1.0); LYMPHOCYTES ABSOLUTE AUTO 0.77 K/mm3 (1.18-3.74); LYMPHOCYTES PERCENT AUTO 12.7 % (19.3-51.7); MEAN CORPUSCULAR HEMOGLOBIN 25.4 pg (25.6-32.2); MEAN CORPUSCULAR HGB CONC 30.1 g/dl (32.2-35.5); MEAN CORPUSCULAR VOLUME 84.4 fl (79.4-94.8); MEAN PLATELET VOLUME 10.4 fl (9.4-12.3); MONOCYTES ABSOLUTE AUTO 0.09 K/mm3 (0.24-0.36); MONOCYTES PERCENT AUTO 1.5 % (4.7-12.5); NEUTROPHILS ABSOLUTE AUTO 5.07 K/mm3 (1.56-6.13); PLATELET COUNT,PLT 321 K/mm3 (182-369); RED BLOOD CELL COUNT 3.58 M/mm3 (3.98-5.22); WHITE BLOOD CELL COUNT,WBC 6.04 K/mm3 (3.98-10.04)
[2023-05-08] MEDS: Albuterol 0.5% 2.5 MG/0.5 ML Neb Soln NEB SCH (06:11)
[2023-05-08] MEDS: Ipratropium 0.02% 0.5 MG/2.5 ML Neb Soln NEB SCH ×2 (06:43→07:14)
[2023-05-08] MEDS ORDERED: ALPRAZolam 0.5 MG Tab PO PRN (07:06)
[2023-05-08] MEDS: Insulin Regular, Human 100 Units/ML 3 ML Vial SUBCUT SCH ×5 (08:02→22:01)
[2023-05-08] MEDS ORDERED: Sodium Chloride 0.9% 250 ML ONE (08:47)
[2023-05-08] MEDS: metFORMIN 500 MG Tab PO SCH ×2 (08:52→16:01)
[2023-05-08] MEDS: Azithromycin 500 MG in Sodium Chloride 0.9% 250 ML IV SCH (08:55)
[2023-05-08] MEDS: Clopidogrel 75 MG Tab PO SCH (08:57)
[2023-05-08] MEDS: Furosemide 20 MG Tab PO SCH (08:57)
[2023-05-08] MEDS: Multivitamins with Minerals/Folic Acid/Lutein/Zeaxanth Tab PO SCH ×2 (08:57→21:58)
[2023-05-08] MEDS: Fish Oil/Omega-3 Fatty Acids 1 Gm Cap PO SCH (08:57)
[2023-05-08] MEDS: Ascorbic Acid 500 MG Tab PO SCH ×3 (08:57→21:59)
[2023-05-08] MEDS: Potassium Chloride 10 MEQ Tab.ER PO SCH (08:57)
[2023-05-08] MEDS: Docusate Sodium 100 MG Cap PO SCH (08:57)
[2023-05-08] MEDS: guaiFENesin 600 MG Tab.ER PO SCH ×2 (08:57→21:59)
[2023-05-08] MEDS: Famotidine 20 MG Tab PO SCH ×2 (08:57→21:59)
[2023-05-08] MEDS: CLORAZEPATE 3.75 MG PO SCH ×2 (09:00→22:00)
[2023-05-08] MEDS ORDERED: Cholecalciferol (Vitamin D3) 5,000 UNIT Tab PO SCH (09:00)
[2023-05-08] MEDS: Albuterol 0.083% 2.5 MG/3 ML Neb Soln NEB SCH ×3 (09:07→20:39)
[2023-05-08] MEDS: FLUTICASONE INH SCH (09:08)
[2023-05-08] MEDS: VILANTER INH SCH (09:08)
[2023-05-08] MEDS: UMECLIDIN INH SCH (09:08)
[2023-05-08] MEDS: ROFLUMILAST 500 MCG PO SCH ×2 (09:22→22:00)
[2023-05-08] MEDS: Cholecalciferol (Vitamin D3) 5,000 UNIT Cap PO SCH (09:22)
[2023-05-08] MEDS ORDERED: Insulin Regular, Human 100 Units/ML 3 ML Vial SUBCUT SCH (11:30)
[2023-05-08] MEDS: atorvaSTATin 40 MG Tab PO SCH (21:58)
[2023-05-08] MEDS: Insulin Glargine,Human Rec. Analog 100 Units/ML 3 ML Pen SUBCUT SCH (22:00)
[2023-05-08] MEDS ORDERED: Insulin Lispro 100 Unit/ML 3 ML KwikPen SUBCUT SCH (22:33)
[2023-05-08] MEDS: oxyCODONE 5 MG Tab PO PRN (23:45)
[2023-05-09] MEDS: Heparin Sodium 5,000 Units/ML Vial SUBCUT SCH ×3 (01:03→15:44)
[2023-05-09] MEDS: methylPREDNISolone Sodium Succinate 125 MG/2 ML SDV IVPUSH SCH ×2 (01:03→08:44)
[2023-05-09 05:25] LABS: BASOPHILS ABSOLUTE AUTO 0.01 K/mm3 (0.01-0.08); BASOPHILS PERCENT AUTO 0.2 % (0.1-1.2); EOSINOPHILS PERCENT AUTO 0 (0.7-5.8); HEMOGLOBIN 9.1 gm/dl (11.2-15.7); IMMATURE GRAN ABSOLUTE AUTO 0.12 K/mm3 (0.00-0.10); IMMATURE GRAN PERCENT AUTO 1.8 % (<=1.0); LYMPHOCYTES ABSOLUTE AUTO 0.89 K/mm3 (1.18-3.74); LYMPHOCYTES PERCENT AUTO 13.6 % (19.3-51.7); MEAN CORPUSCULAR HEMOGLOBIN 25.6 pg (25.6-32.2); MEAN CORPUSCULAR HGB CONC 30.3 g/dl (32.2-35.5); MEAN CORPUSCULAR VOLUME 84.3 fl (79.4-94.8); MEAN PLATELET VOLUME 10.3 fl (9.4-12.3); MONOCYTES ABSOLUTE AUTO 0.19 K/mm3 (0.24-0.36); MONOCYTES PERCENT AUTO 2.9 % (4.7-12.5); NEUTROPHILS ABSOLUTE AUTO 5.33 K/mm3 (1.56-6.13); NEUTROPHILS PERCENT AUTO 81.5 % (34.0-71.1); PLATELET COUNT,PLT 305 K/mm3 (182-369); RED BLOOD CELL COUNT 3.56 M/mm3 (3.98-5.22); WHITE BLOOD CELL COUNT,WBC 6.54 K/mm3 (3.98-10.04)
[2023-05-09] MEDS: Albuterol 0.083% 2.5 MG/3 ML Neb Soln NEB SCH ×2 (06:09→09:04)
[2023-05-09 06:13] LABS: ANION GAP 9.6 (5-15); BUN/CREATININE RATIO 33.3 (14-18); CALCIUM 9.1 mg/dL (8.5-10.1); CREATININE 0.9 mg/dL (0.55-1.02); EST CRCL DRUG DOSING (CG) 49.95 mL/min; POTASSIUM,K 4.6 mEq/L (3.5-5.1)
[2023-05-09] MEDS: metFORMIN 500 MG Tab PO SCH ×2 (06:23→15:43)
[2023-05-09] MEDS: Azithromycin 500 MG in Sodium Chloride 0.9% 250 ML IV SCH (08:43)
[2023-05-09] MEDS: ROFLUMILAST 500 MCG PO SCH ×2 (08:45→22:02)
[2023-05-09] MEDS: CLORAZEPATE 3.75 MG PO SCH ×2 (08:45→22:03)
[2023-05-09] MEDS: Ascorbic Acid 500 MG Tab PO SCH ×3 (08:46→22:02)
[2023-05-09] MEDS: Fish Oil/Omega-3 Fatty Acids 1 Gm Cap PO SCH (08:46)
[2023-05-09] MEDS: Famotidine 20 MG Tab PO SCH ×2 (08:47→22:02)
[2023-05-09] MEDS: Multivitamins with Minerals/Folic Acid/Lutein/Zeaxanth Tab PO SCH ×2 (08:47→22:02)
[2023-05-09] MEDS: Clopidogrel 75 MG Tab PO SCH (08:47)
[2023-05-09] MEDS: Cholecalciferol (Vitamin D3) 5,000 UNIT Cap PO SCH (08:48)
[2023-05-09] MEDS: Docusate Sodium 100 MG Cap PO SCH (08:48)
[2023-05-09] MEDS: Furosemide 20 MG Tab PO SCH (08:48)
[2023-05-09] MEDS: guaiFENesin 600 MG Tab.ER PO SCH ×2 (08:48→22:02)
[2023-05-09] MEDS: Potassium Chloride 10 MEQ Tab.ER PO SCH (08:49)
[2023-05-09] MEDS: Insulin Regular, Human 100 Units/ML 3 ML Vial SUBCUT SCH ×4 (08:50→22:01)
[2023-05-09] MEDS: FLUTICASONE INH SCH (09:05)
[2023-05-09] MEDS: UMECLIDIN INH SCH (09:05)
[2023-05-09] MEDS: VILANTER INH SCH (09:05)
[2023-05-09] MEDS: Albuterol/Ipratropium 3.0-0.5 MG/3 ML Neb Soln INH SCH ×2 (12:12→17:52)
[2023-05-09] MEDS: predniSONE 20 MG Tab PO SCH (15:44)
[2023-05-09] MEDS: Albuterol 0.083% 2.5 MG/3 ML Neb Soln NEB PRN (20:58)
[2023-05-09] MEDS: Insulin Glargine,Human Rec. Analog 100 Units/ML 3 ML Pen SUBCUT SCH (22:00)
[2023-05-09] MEDS: atorvaSTATin 40 MG Tab PO SCH (22:13)
[2023-05-10] MEDS: Heparin Sodium 5,000 Units/ML Vial SUBCUT SCH ×2 (00:21→08:44)
[2023-05-10] MEDS: Albuterol/Ipratropium 3.0-0.5 MG/3 ML Neb Soln INH SCH ×2 (02:17→06:20)
[2023-05-10] MEDS: metFORMIN 500 MG Tab PO SCH (06:44)
[2023-05-10] MEDS: predniSONE 20 MG Tab PO SCH (06:44)
[2023-05-10] MEDS ORDERED: predniSONE 20 MG Tab PO SCH (07:00)
[2023-05-10] MEDS: UMECLIDIN INH SCH (08:30)
[2023-05-10] MEDS: FLUTICASONE INH SCH (08:30)
[2023-05-10] MEDS: VILANTER INH SCH (08:30)
[2023-05-10] MEDS: Insulin Regular, Human 100 Units/ML 3 ML Vial SUBCUT SCH ×2 (08:43→12:11)
[2023-05-10] MEDS: Multivitamins with Minerals/Folic Acid/Lutein/Zeaxanth Tab PO SCH (08:47)
[2023-05-10] MEDS: guaiFENesin 600 MG Tab.ER PO SCH (08:47)
[2023-05-10] MEDS: Ascorbic Acid 500 MG Tab PO SCH (08:47)
[2023-05-10] MEDS: Potassium Chloride 10 MEQ Tab.ER PO SCH (08:47)
[2023-05-10] MEDS: Cholecalciferol (Vitamin D3) 5,000 UNIT Cap PO SCH (08:47)
[2023-05-10] MEDS: Fish Oil/Omega-3 Fatty Acids 1 Gm Cap PO SCH (08:47)
[2023-05-10] MEDS: Furosemide 20 MG Tab PO SCH (08:47)
[2023-05-10] MEDS: Clopidogrel 75 MG Tab PO SCH (08:47)
[2023-05-10] MEDS: Famotidine 20 MG Tab PO SCH (08:47)
[2023-05-10] MEDS: CLORAZEPATE 3.75 MG PO SCH (09:05)
[2023-05-10] MEDS: Docusate Sodium 100 MG Cap PO SCH (09:06)
[2023-05-10] MEDS: ROFLUMILAST 500 MCG PO SCH (09:06)
== END 2023-05-10 13:20 | disposition home or self-care (01) | DRG 133 ==
LOC: JD.ED 18:52 → JD.MS 22:00
PROVIDERS: ADMIT Internal Medicine; ATTEND Internal Medicine
DX: J96.21 Acute and chronic respiratory failure with hypoxia (principal); J43.2 Centrilobular emphysema; E11.69 Type 2 diabetes mellitus with other specified complication; D50.0 Iron deficiency anemia secondary to blood loss (chronic); F41.9 Anxiety disorder, unspecified; E78.5 Hyperlipidemia, unspecified; E66.9 Obesity, unspecified; Z96.0 Presence of urogenital implants; J84.10 Pulmonary fibrosis, unspecified; Z99.81 Dependence on supplemental oxygen; Z79.4 Long term (current) use of insulin; Z79.84 Long term (current) use of oral hypoglycemic drugs; Z87.891 Personal history of nicotine dependence; Z86.718 Personal history of other venous thrombosis and embolism; Z79.899 Other long term (current) drug therapy; Z91.040 Latex allergy status; Z88.8 Allergy status to other drugs, medicaments and biological substances; Z88.6 Allergy status to analgesic agent; Z88.0 Allergy status to penicillin; Z88.5 Allergy status to narcotic agent; Z79.02 Long term (current) use of antithrombotics/antiplatelets; Z97.3 Presence of spectacles and contact lenses; Z90.711 Acquired absence of uterus with remaining cervical stump; Z98.890 Other specified postprocedural states; Z98.49 Cataract extraction status, unspecified eye; Z87.440 Personal history of urinary (tract) infections; Z68.30 Body mass index [BMI] 30.0-30.9, adult; Z87.01 Personal history of pneumonia (recurrent)
CPT/HCPCS: 36415; 71045; 71045-26; 71275; 71275-26; 80048; 80053; 82947; 83735; 83880; 84484; 85025; 85379; 85610; 85730; 93005; 93010; 94640; 94667; 94668; 94761; 96374; 97161-GP; 97165-GO; 97530-GO; 97535-GO; 99284; 99285-25; A9270-GY; J0456; J1644; J1815-GY; J2930; J3490; J7050; J7512; J7620-GY; Q9967

== ENCOUNTER 2023-07-31 22:33 | Observation (INO) | payer BC ==
[2023-07-31 22:55] LABS: HEMATOCRIT 34.3 % (37.0-47.0); HEMOGLOBIN 10.3 gm/dl (12.0-16.0); MEAN CORPUSCULAR HEMOGLOBIN 25.1 pg (28.0-32.0); MEAN CORPUSCULAR VOLUME 83.7 fl (83.0-99.0); MEAN PLATELET VOLUME 9.8 fl (9.4-12.3); PLATELET COUNT,PLT 267 K/mm3 (150-400); WHITE BLOOD CELL COUNT,WBC 5.89 K/mm3 (3.9-11.3)
[2023-07-31 23:19] LABS: ANISOCYTOSIS 1+ SLIGHT; BAND PERCENT MAN 1 % (0-10); BASOPHILS PERCENT MAN 0 (0.1-1.2); EOSINOPHILS PERCENT MAN 0 % (0.7-5.8); HYPOCHROMASIA 1+ SLIGHT; LYMPHOCYTES % ATYPICAL MANUAL 0 %; LYMPHOCYTES PERCENT MAN 18 % (20-40); MONOCYTES PERCENT MAN 7 % (2-10); PLATELET COUNT ESTIMATE ADEQUATE
[2023-07-31 23:32] LABS: A/G RATIO 1.1 (1-2); ALANINE AMINOTRANSFERASE,ALT 29 U/L (14-59); ALBUMIN 3.5 g/dl (3.4-5.0); ALKALINE PHOSPHATASE 73 U/L (46-116); ANION GAP 13.4 (5-15); ASPARTATE AMNIOTRANSFERASE,AST 12 U/L (15-37); BILIRUBIN TOTAL 0.6 mg/dL (0.2-1.0); BLOOD UREA NITROGEN,BUN 11 mg/dL (7-18); CALCIUM 9.3 mg/dL (8.5-10.1); CARBON DIOXIDE,CO2 31 mEq/L (21-32); CHLORIDE,CL 101 mEq/L (98-107); ESTIMATED GFR 63 mL/min (>60); GLUCOSE RANDOM 351 mg/dL (70-99); POTASSIUM,K 4.4 mEq/L (3.5-5.1); PROTEIN TOTAL,TP 6.8 g/dl (6.4-8.2); SODIUM,NA 141 mEq/L (136-145); TROPONIN I HIGH SENSITIVITY 16 pg/mL (<=51)
[2023-08-01 00:21] LABS: CORONAVIRUS COVID-19 NAA NEGATIVE (NEGATIVE); INFLUENZA A NAA NEGATIVE (NEGATIVE)
[2023-08-01] MEDS ORDERED: methylPREDNISolone Sodium Succinate 125 MG/2 ML SDV IVPUSH ONE (00:48)
[2023-08-01] MEDS ORDERED: Albuterol/Ipratropium 3.0-0.5 MG/3 ML Neb Soln NEB ONE ×2 (00:48→06:15)
[2023-08-01] MEDS ORDERED: Furosemide 40 MG/4 ML VIAL IVPUSH ONE (00:48)
[2023-08-01] MEDS ORDERED: Iopamidol 755 Mg/ML 100 ML Bottle IVPUSH ONE (01:12)
[2023-08-01] MEDS ORDERED: Sodium Chloride 0.9% 10 ML SDV FLUSH ONE (01:12)
[2023-08-01] MEDS ORDERED: Sodium Chloride 0.9% 100 ML IV SCH (01:15)
[2023-08-01 01:23] LABS: BICARBONATE,ARTERIAL 33.8 meq/L (22.0-26.0); O2 SATURATION ARTERIAL 94.1 % (96.0-97.0); PCO2 ARTERIAL 63.7 mmHg (35.0-45.0)
[2023-08-01] MEDS ORDERED: LORazepam 2 MG/ML SDV IVPUSH ONE (01:40)
[2023-08-01] MEDS ORDERED: Acetaminophen 325 MG Tab PO PRN (08:24)
[2023-08-01] MEDS ORDERED: Ondansetron 4 MG Tab.DIS PO PRN (08:24)
[2023-08-01] MEDS ORDERED: Ondansetron 4 MG/2 ML SDV IV PRN (08:24)
[2023-08-01] MEDS ORDERED: Docusate Sodium 100 MG Cap PO PRN (08:24)
[2023-08-01] MEDS ORDERED: ALPRAZolam 0.5 MG Tab PO PRN ×2 (08:28→08:34)
[2023-08-01] MEDS ORDERED: hydrOXYzine HCl 10 MG Tab PO PRN (08:28)
[2023-08-01] MEDS ORDERED: hydrOXYzine HCl 25 MG Tab PO PRN (08:35)
[2023-08-01] MEDS ORDERED: predniSONE 10 MG Tab PO SCH ×2 (09:00)
[2023-08-01] MEDS ORDERED: Famotidine 20 MG Tab PO SCH (09:00)
[2023-08-01] MEDS ORDERED: CLORAZEPATE 3.75 MG PO SCH ×2 (09:00)
[2023-08-01] MEDS ORDERED: Clopidogrel 75 MG Tab PO SCH (09:00)
[2023-08-01] MEDS: Heparin Sodium 5,000 Units/ML Vial SUBCUT SCH ×2 (11:22→17:05)
[2023-08-01] MEDS: Insulin Lispro 100 Unit/ML 3 ML KwikPen SUBCUT SCH ×3 (11:23→20:24)
[2023-08-01] MEDS: predniSONE 10 MG Tab PO SCH (11:26)
[2023-08-01] MEDS: Clopidogrel 75 MG Tab PO SCH (11:26)
[2023-08-01] MEDS: Famotidine 20 MG Tab PO SCH ×2 (11:26→20:23)
[2023-08-01] MEDS: Furosemide 40 MG/4 ML VIAL IVPUSH SCH ×2 (11:27→20:23)
[2023-08-01] MEDS: Albuterol/Ipratropium 3.0-0.5 MG/3 ML Neb Soln NEB PRN ×2 (14:50→20:49)
[2023-08-01] MEDS: Insulin Glargine,Human Rec. Analog 100 Units/ML 3 ML Pen SUBCUT SCH (20:27)
[2023-08-01] MEDS ORDERED: Non-Formulary Medication 1 Each (Insulin Glargine,Hum.Rec.Anlog [Toujeo Solostar] 300 UNIT SQ SCH (21:00)
[2023-08-02] MEDS: Heparin Sodium 5,000 Units/ML Vial SUBCUT SCH ×3 (00:18→16:47)
[2023-08-02] MEDS: Albuterol/Ipratropium 3.0-0.5 MG/3 ML Neb Soln NEB PRN ×4 (02:22→20:58)
[2023-08-02 06:00] LABS: BASOPHILS PERCENT AUTO 0.2 % (0.0-1.0); EOSINOPHILS PERCENT AUTO 0.2 % (0.0-6.0); HEMATOCRIT 37.4 % (37.0-47.0); HEMOGLOBIN 11.3 gm/dl (12.0-16.0); IMMATURE GRAN ABSOLUTE AUTO 0.06 K/mm3 (0.00-0.05); IMMATURE GRAN PERCENT AUTO 0.7 % (0.0-0.4); LYMPHOCYTES ABSOLUTE AUTO 2.8 K/mm3 (1.0-4.8); LYMPHOCYTES PERCENT AUTO 32.8 % (24.0-44.0); MEAN CORPUSCULAR HEMOGLOBIN 25.2 pg (28.0-32.0); MEAN CORPUSCULAR HGB CONC 30.2 g/dl (32.0-36.0); MEAN CORPUSCULAR VOLUME 83.5 fl (83.0-99.0); MEAN PLATELET VOLUME 9.6 fl (9.4-12.3); MONOCYTES ABSOLUTE AUTO 0.5 K/mm3 (0.0-0.8); MONOCYTES PERCENT AUTO 6.3 % (0.0-8.0); NEUTROPHILS ABSOLUTE AUTO 5.2 K/mm3 (1.8-7.7); NEUTROPHILS PERCENT AUTO 59.8 % (41.0-71.0); PLATELET COUNT,PLT 296 K/mm3 (150-400); RED BLOOD CELL COUNT 4.48 M/mm3 (4.10-5.30); WHITE BLOOD CELL COUNT,WBC 8.62 K/mm3 (3.9-11.3)
[2023-08-02 06:09] LABS: CALCIUM 9.6 mg/dL (8.5-10.1); EST CRCL DRUG DOSING (CG) 44.95 mL/min
[2023-08-02 06:34] LABS: ANION GAP 10.9 (5-15)
[2023-08-02 06:40] LABS: POTASSIUM,K 2.9 mEq/L (3.5-5.1)
[2023-08-02] MEDS ORDERED: Potassium Chloride 20 MEQ Tab.ER PO ONE (07:59)
[2023-08-02] MEDS: Famotidine 20 MG Tab PO SCH ×2 (08:02→20:14)
[2023-08-02] MEDS: Furosemide 40 MG/4 ML VIAL IVPUSH SCH ×2 (08:02→20:14)
[2023-08-02] MEDS: Clopidogrel 75 MG Tab PO SCH (08:02)
[2023-08-02] MEDS: predniSONE 10 MG Tab PO SCH (08:02)
[2023-08-02] MEDS: Potassium Chloride 10 MEQ in Premix Bag 1 BAG IV SCH ×4 (08:22→13:49)
[2023-08-02] MEDS: Insulin Lispro 100 Unit/ML 3 ML KwikPen SUBCUT SCH ×4 (09:30→20:16)
[2023-08-02] MEDS: Insulin Glargine,Human Rec. Analog 100 Units/ML 3 ML Pen SUBCUT SCH (20:14)
[2023-08-03] MEDS: Heparin Sodium 5,000 Units/ML Vial SUBCUT SCH ×2 (00:24→07:50)
[2023-08-03] MEDS: Albuterol/Ipratropium 3.0-0.5 MG/3 ML Neb Soln NEB PRN ×2 (03:06→07:57)
[2023-08-03] MEDS: Insulin Lispro 100 Unit/ML 3 ML KwikPen SUBCUT SCH ×2 (07:32→11:28)
[2023-08-03] MEDS: Furosemide 40 MG/4 ML VIAL IVPUSH SCH (08:05)
[2023-08-03] MEDS: predniSONE 10 MG Tab PO SCH (08:05)
[2023-08-03] MEDS: Clopidogrel 75 MG Tab PO SCH (08:05)
[2023-08-03] MEDS: Famotidine 20 MG Tab PO SCH (08:05)
[2023-08-03 10:00] LABS: HEMATOCRIT 37.2 % (37.0-47.0); HEMOGLOBIN 11.2 gm/dl (12.0-16.0); MEAN CORPUSCULAR HEMOGLOBIN 25.4 pg (28.0-32.0); MEAN CORPUSCULAR HGB CONC 30.1 g/dl (32.0-36.0); MEAN CORPUSCULAR VOLUME 84.4 fl (83.0-99.0); MEAN PLATELET VOLUME 10.2 fl (9.4-12.3); NRBC ABSOLUTE 0.02 (0.00-0.02); NRBC PERCENT 0.3 % (0.0-0.2); PLATELET COUNT,PLT 289 K/mm3 (150-400); RED BLOOD CELL COUNT 4.41 M/mm3 (4.10-5.30); WHITE BLOOD CELL COUNT,WBC 6.17 K/mm3 (3.9-11.3)
[2023-08-03 10:23] LABS: ANION GAP 11.7 (5-15); CALCIUM 9.8 mg/dL (8.5-10.1); EST CRCL DRUG DOSING (CG) 44.95 mL/min; POTASSIUM,K 3.7 mEq/L (3.5-5.1)
== END 2023-08-03 12:15 | disposition home or self-care (01) ==
LOC: JD.ED 22:33 → JD.MS 08-01 08:24
PROVIDERS: ADMIT Hospitalist; ATTEND Hospitalist
DX: J96.21 Acute and chronic respiratory failure with hypoxia (principal); J96.22 Acute and chronic respiratory failure with hypercapnia; J44.1 Chronic obstructive pulmonary disease with (acute) exacerbation; I50.9 Heart failure, unspecified; E11.9 Type 2 diabetes mellitus without complications; E55.9 Vitamin D deficiency, unspecified; Z91.040 Latex allergy status; Z20.822 Contact with and (suspected) exposure to COVID-19; Z88.8 Allergy status to other drugs, medicaments and biological substances; Z88.1 Allergy status to other antibiotic agents; Z88.0 Allergy status to penicillin; Z88.5 Allergy status to narcotic agent; Z79.4 Long term (current) use of insulin; Z79.899 Other long term (current) drug therapy; Z79.02 Long term (current) use of antithrombotics/antiplatelets; Z79.84 Long term (current) use of oral hypoglycemic drugs; Z79.2 Long term (current) use of antibiotics; Z79.52 Long term (current) use of systemic steroids; Z87.891 Personal history of nicotine dependence
CPT/HCPCS: 0240U; 36415; 36600; 71045; 71275; 80048; 80053; 82803; 82947; 83880; 84484; 85007; 85025; 85027; 85379; 93005; 93306; 94640; 94667; 94668; 94761; 94762; 96365; 96366; 96372; 96375; 96376; 99285; A9270; G0378; J1644; J1815; J1940; J2930; J3480; J7512; Q9967; 93010; 96374; 99222; 99232; 99239; 99284; J7620-GY

== ENCOUNTER 2024-02-07 06:41 | Inpatient (IN) | payer BC, MEDICARE ==
[2024-02-07 07:03] LABS: BASE EXCESS ARTERIAL 7.4 (-2-2.0); BICARBONATE,ARTERIAL 33.2 meq/L (22.0-26.0); O2 SATURATION ARTERIAL 95.1 % (96.0-97.0); PCO2 ARTERIAL 55.9 mmHg (35.0-45.0)
[2024-02-07 07:05] LABS: BASOPHILS PERCENT AUTO 0.2 % (0.0-1.0); EOSINOPHILS PERCENT AUTO 0.3 % (0.0-6.0); HEMATOCRIT 35.3 % (37.0-47.0); HEMOGLOBIN 10.6 gm/dl (12.0-16.0); IMMATURE GRAN ABSOLUTE AUTO 0.25 K/mm3 (0.00-0.05); IMMATURE GRAN PERCENT AUTO 1.8 % (0.0-0.4); LYMPHOCYTES ABSOLUTE AUTO 3.6 K/mm3 (1.0-4.8); LYMPHOCYTES PERCENT AUTO 26.7 % (24.0-44.0); MEAN CORPUSCULAR HEMOGLOBIN 25.4 pg (28.0-32.0); MEAN CORPUSCULAR VOLUME 84.7 fl (83.0-99.0); MEAN PLATELET VOLUME 9.9 fl (9.4-12.3); MONOCYTES ABSOLUTE AUTO 0.9 K/mm3 (0.0-0.8); MONOCYTES PERCENT AUTO 6.9 % (0.0-8.0); NEUTROPHILS ABSOLUTE AUTO 8.7 K/mm3 (1.8-7.7); NEUTROPHILS PERCENT AUTO 64.1 % (41.0-71.0); NRBC ABSOLUTE 0.06 (0.00-0.02); NRBC PERCENT 0.4 % (0.0-0.2); PLATELET COUNT,PLT 217 K/mm3 (150-400); RED BLOOD CELL COUNT 4.17 M/mm3 (4.10-5.30); WHITE BLOOD CELL COUNT,WBC 13.54 K/mm3 (3.9-11.3)
[2024-02-07] MEDS ORDERED: Magnesium Sulfate (4.06 MEQ/ML) 5 GM/10 ML SDV IV ONE (07:11)
[2024-02-07] MEDS ORDERED: Naloxone 0.4 MG/ML SDV IVPUSH PRN (07:14)
[2024-02-07 07:27] LABS: INR 0.93
[2024-02-07] MEDS: HYDROmorphone 0.5 MG/0.5 ML Syringe IVPUSH ONE (07:27)
[2024-02-07] MEDS: Magnesium Sulfate/Water 2 GM in Premix Bag 1 BAG IV ONE (07:27)
[2024-02-07] MEDS: methylPREDNISolone Sodium Succinate 125 MG/2 ML SDV IVPUSH ONE (07:27)
[2024-02-07] MEDS: Diltiazem 25 MG/5 ML SDV IVPUSH ONE (07:27)
[2024-02-07 07:29] LABS: A/G RATIO 0.9 (1-2); ALANINE AMINOTRANSFERASE,ALT 27 U/L (14-59); ALBUMIN 2.9 g/dl (3.4-5.0); ALKALINE PHOSPHATASE 88 U/L (46-116); ANION GAP 10.6 (5-15); ASPARTATE AMNIOTRANSFERASE,AST 13 U/L (15-37); BILIRUBIN TOTAL 0.5 mg/dL (0.2-1.0); BLOOD UREA NITROGEN,BUN 20 mg/dL (7-18); BUN/CREATININE RATIO 22.2 (14-18); C-REACTIVE PROTEIN 7.04 mg/dL (<0.30); CALCIUM 9.1 mg/dL (8.5-10.1); CARBON DIOXIDE,CO2 34 mEq/L (21-32); CHLORIDE,CL 100 mEq/L (98-107); CREATININE 0.9 mg/dL (0.55-1.02); ESTIMATED GFR 71 mL/min (>60); GLUCOSE RANDOM 219 mg/dL (70-99); MAGNESIUM 1.6 mg/dL (1.8-2.4); POTASSIUM,K 3.6 mEq/L (3.5-5.1); PROTEIN TOTAL,TP 6.2 g/dl (6.4-8.2); PTT,PARTIAL THROMBOPLSTIN TIME 21.4 SECONDS (21.7-31.4); SODIUM,NA 141 mEq/L (136-145); TROPONIN I HIGH SENSITIVITY 31 pg/mL (<=51)
[2024-02-07] MEDS: Albuterol/Ipratropium 3.0-0.5 MG/3 ML Neb Soln NEB ONE (07:37)
[2024-02-07] MEDS: Sodium Chloride 0.9% 10 ML Syringe FLUSH PRN (07:44)
[2024-02-07 07:48] LABS: CORONAVIRUS COVID-19 NAA NEGATIVE (NEGATIVE); INFLUENZA A NAA NEGATIVE (NEGATIVE); RESPIRATORY SYNCYTIAL VIR NAA NEGATIVE (NEGATIVE)
[2024-02-07] MEDS: Diltiazem 125 MG in Sodium Chloride 0.9% 100 ML IV SCH (08:07)
[2024-02-07 08:29] LABS: LACTIC ACID 1.7 mmol/L (0.4-2.0)
[2024-02-07 08:49] LABS: BASE EXCESS ARTERIAL 6.6 (-2-2.0); BICARBONATE,ARTERIAL 33.4 meq/L (22.0-26.0); O2 SATURATION ARTERIAL 96.4 % (96.0-97.0); PCO2 ARTERIAL 63.7 mmHg (35.0-45.0)
[2024-02-07] MEDS ORDERED: Docusate Sodium 100 MG Cap PO PRN (09:06)
[2024-02-07] MEDS ORDERED: Albuterol 0.083% 2.5 MG/3 ML Neb Soln NEB PRN (09:06)
[2024-02-07] MEDS ORDERED: Ondansetron 4 MG/2 ML SDV IV PRN (09:06)
[2024-02-07] MEDS: Morphine 4 MG/ML Syringe IVPUSH ONE (09:32)
[2024-02-07] MEDS ORDERED: Sodium Chloride 0.65% Nasal Spray 45 ML Bottle NASBOTH PRN (10:00)
[2024-02-07] MEDS: Azithromycin 500 MG in Sodium Chloride 0.9% 250 ML IV ONE (10:29)
[2024-02-07] MEDS: Enoxaparin 40 MG/0.4 ML Syringe SUBCUT SCH (10:36)
[2024-02-07] MEDS: Albuterol/Ipratropium 3.0-0.5 MG/3 ML Neb Soln NEB SCH (10:58)
[2024-02-07] MEDS: Diltiazem IR 30 MG Tab PO SCH (11:22)
[2024-02-07] MEDS: cefTRIAXone 2 GM in Sodium Chloride 0.9% 100 ML IV SCH (11:33)
[2024-02-07] MEDS: guaiFENesin 600 MG Tab.ER PO SCH (11:34)
[2024-02-07] MEDS: Clopidogrel 75 MG Tab PO SCH (11:34)
[2024-02-07] MEDS: Famotidine 20 MG Tab PO SCH (11:34)
[2024-02-07] MEDS: Acetaminophen 325 MG Tab PO PRN (11:34)
[2024-02-07] MEDS: Insulin Lispro 100 Unit/ML 3 ML KwikPen SUBCUT SCH (11:35)
[2024-02-07] MEDS: Roflumilast [Daliresp] 500 MCG Tablet ** PATIENT'S OWN MED PO SCH (13:10)
[2024-02-07 13:13] LABS: APPEARANCE,URINE CLEAR (Clear); BILIRUBIN,URINE NEGATIVE (Negative); COLOR,URINE YELLOW (Yellow); GLUCOSE,URINE 3+ (Negative); KETONES,URINE 1+ (Negative); LEUKOCYTE ESTERASE,URINE TRACE (Negative); NITRITE,URINE NEGATIVE (Negative); OCCULT BLOOD,URINE TRACE-LYSED (Negative); PH,URINE 5.5 (5.0-8.0); PROTEIN,URINE 2+ (Negative); UROBILINOGEN,URINE 0.2 (0.2-1.0)
[2024-02-07 13:33] LABS: BACTERIA,URINE FEW /hpf (FEW); MUCUS,URINE RARE /hpf (FEW)
[2024-02-07] MEDS: Ferrous Sulfate 324 MG Tab.EC PO SCH (15:19)
[2024-02-07] MEDS: atorvaSTATin 40 MG Tab PO SCH (20:06)
[2024-02-07] MEDS: CLORAZEPATE 3.75 MG PO SCH (20:07)
[2024-02-07] MEDS: Insulin Glargine,Human Rec. Analog 100 Units/ML 3 ML Pen SUBCUT SCH (20:17)
[2024-02-08 04:57] LABS: BASOPHILS PERCENT AUTO 0.1 % (0.0-1.0); HEMATOCRIT 30.6 % (37.0-47.0); HEMOGLOBIN 9.4 gm/dl (12.0-16.0); IMMATURE GRAN PERCENT AUTO 1.4 % (0.0-0.4); LYMPHOCYTES ABSOLUTE AUTO 0.9 K/mm3 (1.0-4.8); LYMPHOCYTES PERCENT AUTO 12.7 % (24.0-44.0); MEAN CORPUSCULAR HEMOGLOBIN 26.3 pg (28.0-32.0); MEAN CORPUSCULAR HGB CONC 30.7 g/dl (32.0-36.0); MEAN CORPUSCULAR VOLUME 85.5 fl (83.0-99.0); MONOCYTES ABSOLUTE AUTO 0.3 K/mm3 (0.0-0.8); MONOCYTES PERCENT AUTO 4.6 % (0.0-8.0); NEUTROPHILS ABSOLUTE AUTO 5.9 K/mm3 (1.8-7.7); NEUTROPHILS PERCENT AUTO 81.2 % (41.0-71.0); NRBC ABSOLUTE 0.02 (0.00-0.02); NRBC PERCENT 0.3 % (0.0-0.2); PLATELET COUNT,PLT 182 K/mm3 (150-400); RED BLOOD CELL COUNT 3.58 M/mm3 (4.10-5.30); WHITE BLOOD CELL COUNT,WBC 7.25 K/mm3 (3.9-11.3)
[2024-02-08 05:33] LABS: A/G RATIO 0.7 (1-2); ALBUMIN 2.4 g/dl (3.4-5.0); ANION GAP 10.4 (5-15); BILIRUBIN TOTAL 0.3 mg/dL (0.2-1.0); BUN/CREATININE RATIO 33.3 (14-18); C-REACTIVE PROTEIN 17.1 mg/dL (<0.30); CALCIUM 9.2 mg/dL (8.5-10.1); CREATININE 0.6 mg/dL (0.55-1.02); EST CRCL DRUG DOSING (CG) 73.93 mL/min; MAGNESIUM 2.2 mg/dL (1.8-2.4); POTASSIUM,K 4.4 mEq/L (3.5-5.1)
[2024-02-08] MEDS: Azithromycin 500 MG in Sodium Chloride 0.9% 250 ML IV SCH (08:04)
[2024-02-08] MEDS: Potassium Chloride 20 MEQ Tab.ER PO SCH (08:06)
[2024-02-08] MEDS: Furosemide 20 MG Tab PO SCH (08:06)
[2024-02-08] MEDS: TRELEGY ELLIPTA INH SCH (08:58)
[2024-02-08] MEDS ORDERED: Levalbuterol HCl 1.25 MG/3 ML Neb NEB PRN (09:29)
[2024-02-08] MEDS: Ipratropium 0.02% 0.5 MG/2.5 ML Neb Soln NEB SCH (09:50)
[2024-02-08] MEDS: Levalbuterol HCl 1.25 MG/0.5 ML Neb NEB SCH (09:51)
[2024-02-08] MEDS: predniSONE 20 MG Tab PO ONE (10:15)
[2024-02-08] MEDS ORDERED: Non-Formulary Medication 1 Each (Ferrous Sulfate 325 MG Tablet) PO SCH (15:00)
[2024-02-08] MEDS: oxyCODONE 5 MG Tab PO PRN (20:17)
[2024-02-08] MEDS: Insulin Glargine,Human Rec. Analog 100 Units/ML 3 ML Pen SUBCUT SCH (20:18)
[2024-02-09 04:39] LABS: BASOPHILS PERCENT AUTO 0.2 % (0.0-1.0); EOSINOPHILS PERCENT AUTO 0.1 % (0.0-6.0); HEMATOCRIT 32.2 % (37.0-47.0); HEMOGLOBIN 9.6 gm/dl (12.0-16.0); IMMATURE GRAN ABSOLUTE AUTO 0.15 K/mm3 (0.00-0.05); IMMATURE GRAN PERCENT AUTO 1.7 % (0.0-0.4); LYMPHOCYTES PERCENT AUTO 22.9 % (24.0-44.0); MEAN CORPUSCULAR HEMOGLOBIN 25.4 pg (28.0-32.0); MEAN CORPUSCULAR HGB CONC 29.8 g/dl (32.0-36.0); MEAN CORPUSCULAR VOLUME 85.2 fl (83.0-99.0); MEAN PLATELET VOLUME 9.5 fl (9.4-12.3); MONOCYTES ABSOLUTE AUTO 0.5 K/mm3 (0.0-0.8); MONOCYTES PERCENT AUTO 5.4 % (0.0-8.0); NEUTROPHILS ABSOLUTE AUTO 6.2 K/mm3 (1.8-7.7); NEUTROPHILS PERCENT AUTO 69.7 % (41.0-71.0); NRBC ABSOLUTE 0.04 (0.00-0.02); NRBC PERCENT 0.5 % (0.0-0.2); PLATELET COUNT,PLT 214 K/mm3 (150-400); RED BLOOD CELL COUNT 3.78 M/mm3 (4.10-5.30); WHITE BLOOD CELL COUNT,WBC 8.85 K/mm3 (3.9-11.3)
[2024-02-09 05:07] LABS: A/G RATIO 0.7 (1-2); ALBUMIN 2.6 g/dl (3.4-5.0); ANION GAP 8.9 (5-15); BILIRUBIN TOTAL 0.3 mg/dL (0.2-1.0); C-REACTIVE PROTEIN 8.21 mg/dL (<0.30); CALCIUM 8.8 mg/dL (8.5-10.1); CREATININE 0.9 mg/dL (0.55-1.02); EST CRCL DRUG DOSING (CG) 49.29 mL/min; MAGNESIUM 2.1 mg/dL (1.8-2.4); POTASSIUM,K 3.9 mEq/L (3.5-5.1); PROTEIN TOTAL,TP 6.1 g/dl (6.4-8.2)
[2024-02-09] MEDS: predniSONE 20 MG Tab PO SCH (06:34)
[2024-02-09] MEDS: Azithromycin 250 MG Tab PO SCH (09:57)
[2024-02-09] MEDS: Cefdinir 300 MG Cap PO SCH (09:57)
[2024-02-09] MEDS: Diclofenac Sodium 1% Gel 100 GM Tube TOP PRN (09:59)
== END 2024-02-09 11:20 | disposition home or self-care (01) | DRG 871 ==
LOC: JD.ED 06:41 → JD.ICU 08:46
PROVIDERS: ADMIT Internal Medicine; ATTEND Internal Medicine
PROC: 5A09457 Assistance with Respiratory Ventilation, 24-96 Consecutive Hours, Continuous Positive Airway Pressure (ICD-10-PCS; principal; 2024-02-07)
PROC: 3E03329 Introduction of Other Anti-infective into Peripheral Vein, Percutaneous Approach (ICD-10-PCS; 2024-02-07)
DX: J96.01 Acute respiratory failure with hypoxia (principal); J45.909 Unspecified asthma, uncomplicated; E78.00 Pure hypercholesterolemia, unspecified; A41.9 Sepsis, unspecified organism; E11.9 Type 2 diabetes mellitus without complications; J96.21 Acute and chronic respiratory failure with hypoxia; J96.22 Acute and chronic respiratory failure with hypercapnia; Z79.2 Long term (current) use of antibiotics; J44.1 Chronic obstructive pulmonary disease with (acute) exacerbation; I48.92 Unspecified atrial flutter; I50.9 Heart failure, unspecified; Z66 Do not resuscitate; F41.9 Anxiety disorder, unspecified; E83.42 Hypomagnesemia; R65.20 Severe sepsis without septic shock; D72.829 Elevated white blood cell count, unspecified; G89.29 Other chronic pain; M79.604 Pain in right leg; M79.605 Pain in left leg; E78.5 Hyperlipidemia, unspecified; D50.0 Iron deficiency anemia secondary to blood loss (chronic); E11.69 Type 2 diabetes mellitus with other specified complication; E66.9 Obesity, unspecified; M54.9 Dorsalgia, unspecified; Z88.0 Allergy status to penicillin; Z88.1 Allergy status to other antibiotic agents; Z88.5 Allergy status to narcotic agent; Z88.8 Allergy status to other drugs, medicaments and biological substances; Z79.4 Long term (current) use of insulin; Z79.02 Long term (current) use of antithrombotics/antiplatelets; Z86.16 Personal history of COVID-19; Z68.33 Body mass index [BMI] 33.0-33.9, adult; Z98.49 Cataract extraction status, unspecified eye; Z90.710 Acquired absence of both cervix and uterus; Z86.010 Personal history of colon polyps; Z91.040 Latex allergy status; Z86.718 Personal history of other venous thrombosis and embolism; Z87.891 Personal history of nicotine dependence; Z79.899 Other long term (current) drug therapy; Z99.89 Dependence on other enabling machines and devices
CPT/HCPCS: 0241U; 36415; 36600; 71045; 80053; 81001; 82803; 82947; 83605; 83735; 83880; 84145; 84443; 84484; 85025; 85610; 85730; 86140; 87040; 87086; 93005; 94640; 94660; 94667; 94668; 93010; 96365; 96368; 96375; 96376; 99285; 99285-25; A9270-GY; J0456; J0696; J1170; J1650; J1815; J1815-GY; J2930; J3475; J3490; J7050; J7512; J7620-GY

== ENCOUNTER 2024-05-09 16:11 | Emergency (ER) | payer MEDICARE ==
[2024-05-09] MEDS ORDERED: Sodium Chloride 0.9% 10 ML Syringe FLUSH PRN (16:36)
[2024-05-09] MEDS: methylPREDNISolone Sodium Succinate 125 MG/2 ML SDV IVPUSH ONE (16:59)
[2024-05-09] MEDS: Diltiazem 25 MG/5 ML SDV IVPUSH ONE (17:01)
[2024-05-09] MEDS: Albuterol/Ipratropium 3.0-0.5 MG/3 ML Neb Soln NEB ONE ×2 (17:04→19:14)
[2024-05-09 17:13] LABS: BASOPHILS PERCENT AUTO 0.3 % (0.0-1.0); EOSINOPHILS PERCENT AUTO 0.1 % (0.0-6.0); HEMATOCRIT 30.9 % (37.0-47.0); HEMOGLOBIN 8.5 gm/dl (12.0-16.0); IMMATURE GRAN ABSOLUTE AUTO 0.23 K/mm3 (0.00-0.05); IMMATURE GRAN PERCENT AUTO 2.6 % (0.0-0.4); LYMPHOCYTES ABSOLUTE AUTO 1.1 K/mm3 (1.0-4.8); LYMPHOCYTES PERCENT AUTO 12.6 % (24.0-44.0); MEAN CORPUSCULAR HEMOGLOBIN 22.5 pg (28.0-32.0); MEAN CORPUSCULAR HGB CONC 27.5 g/dl (32.0-36.0); MEAN PLATELET VOLUME 10.4 fl (9.4-12.3); MONOCYTES ABSOLUTE AUTO 0.2 K/mm3 (0.0-0.8); MONOCYTES PERCENT AUTO 2.6 % (0.0-8.0); NEUTROPHILS ABSOLUTE AUTO 7.3 K/mm3 (1.8-7.7); NEUTROPHILS PERCENT AUTO 81.8 % (41.0-71.0); NRBC ABSOLUTE 0.21 (0.00-0.02); NRBC PERCENT 2.3 % (0.0-0.2); PLATELET COUNT,PLT 303 K/mm3 (150-400); RED BLOOD CELL COUNT 3.77 M/mm3 (4.10-5.30); WHITE BLOOD CELL COUNT,WBC 8.97 K/mm3 (3.9-11.3)
[2024-05-09 17:30] LABS: A/G RATIO 0.9 (1-2); ANION GAP 7.3 (5-15); BILIRUBIN TOTAL 0.6 mg/dL (0.2-1.0); BUN/CREATININE RATIO 20.8 (14-18); CALCIUM 9.1 mg/dL (8.5-10.1); CREATININE 1.2 mg/dL (0.55-1.02); EST CRCL DRUG DOSING (CG) 35.27 mL/min; POTASSIUM,K 4.3 mEq/L (3.5-5.1); PROTEIN TOTAL,TP 6.4 g/dl (6.4-8.2)
[2024-05-09 17:50] LABS: SLIDE REVIEW ABNORMAL SMEAR
[2024-05-09] MEDS: Insulin Regular, Human 100 Units/ML 10 ML Vial SUBCUT ONE (19:48)
== END 2024-05-09 20:15 | disposition home or self-care (01) ==
LOC: JD.ED 16:11
DX: J44.1 Chronic obstructive pulmonary disease with (acute) exacerbation (principal); R00.0 Tachycardia, unspecified; E11.65 Type 2 diabetes mellitus with hyperglycemia; E66.9 Obesity, unspecified; Z86.16 Personal history of COVID-19; Z90.710 Acquired absence of both cervix and uterus; Z68.35 Body mass index [BMI] 35.0-35.9, adult; Z79.4 Long term (current) use of insulin; Z79.52 Long term (current) use of systemic steroids; Z79.2 Long term (current) use of antibiotics; Z79.899 Other long term (current) drug therapy; Z91.040 Latex allergy status; Z88.6 Allergy status to analgesic agent; Z88.0 Allergy status to penicillin; Z88.1 Allergy status to other antibiotic agents; Z88.8 Allergy status to other drugs, medicaments and biological substances
CPT/HCPCS: 36415; 71045; 80053; 83735; 83880; 84484; 85025; 93005; 94640; 96374; 96375; 99285; J1815; J2919; J3490; J7620-GY

== ENCOUNTER 2024-06-03 20:35 | Emergency (ER) | payer MEDICARE ==
[2024-06-03 21:56] LABS: BASOPHILS PERCENT AUTO 0.1 % (0.0-1.0); HEMATOCRIT 36.4 % (37.0-47.0); HEMOGLOBIN 10.7 gm/dl (12.0-16.0); IMMATURE GRAN ABSOLUTE AUTO 0.24 K/mm3 (0.00-0.05); LYMPHOCYTES ABSOLUTE AUTO 0.6 K/mm3 (1.0-4.8); LYMPHOCYTES PERCENT AUTO 5.2 % (24.0-44.0); MEAN CORPUSCULAR HEMOGLOBIN 23.6 pg (28.0-32.0); MEAN CORPUSCULAR HGB CONC 29.4 g/dl (32.0-36.0); MEAN CORPUSCULAR VOLUME 80.4 fl (83.0-99.0); MEAN PLATELET VOLUME 10.3 fl (9.4-12.3); MONOCYTES ABSOLUTE AUTO 0.3 K/mm3 (0.0-0.8); MONOCYTES PERCENT AUTO 2.4 % (0.0-8.0); NEUTROPHILS ABSOLUTE AUTO 11.1 K/mm3 (1.8-7.7); NEUTROPHILS PERCENT AUTO 90.3 % (41.0-71.0); NRBC ABSOLUTE 0.03 (0.00-0.02); NRBC PERCENT 0.2 % (0.0-0.2); PLATELET COUNT,PLT 245 K/mm3 (150-400); RED BLOOD CELL COUNT 4.53 M/mm3 (4.10-5.30); WHITE BLOOD CELL COUNT,WBC 12.27 K/mm3 (3.9-11.3)
[2024-06-03 22:17] LABS: A/G RATIO 0.8 (1-2); ALBUMIN 2.9 g/dl (3.4-5.0); ANION GAP 11.2 (5-15); BILIRUBIN TOTAL 0.7 mg/dL (0.2-1.0); CALCIUM 9.8 mg/dL (8.5-10.1); EST CRCL DRUG DOSING (CG) 14.79 mL/min; MAGNESIUM 2.4 mg/dL (1.8-2.4); POTASSIUM,K 3.2 mEq/L (3.5-5.1); PROTEIN TOTAL,TP 6.6 g/dl (6.4-8.2)
[2024-06-03] MEDS: HYDROmorphone 1 MG/ML Syringe IM ONE (22:28)
[2024-06-03] MEDS ORDERED: Sodium Chloride 0.9% 10 ML Syringe FLUSH PRN (22:34)
[2024-06-03] MEDS: Sodium Chloride 0.9% 1,000 ML IV ONE (22:55)
[2024-06-04] MEDS: HYDROmorphone 0.5 MG/0.5 ML Syringe IVPUSH ONE (00:47)
== END 2024-06-04 01:10 | disposition home or self-care (01) ==
LOC: JD.ED 20:35
DX: M79.604 Pain in right leg (principal); N17.9 Acute kidney failure, unspecified; N28.9 Disorder of kidney and ureter, unspecified; E87.6 Hypokalemia; E78.00 Pure hypercholesterolemia, unspecified; J45.909 Unspecified asthma, uncomplicated; E11.9 Type 2 diabetes mellitus without complications; E66.9 Obesity, unspecified; Z86.16 Personal history of COVID-19; Z90.710 Acquired absence of both cervix and uterus; Z79.899 Other long term (current) drug therapy; Z79.4 Long term (current) use of insulin; Z79.2 Long term (current) use of antibiotics; Z88.8 Allergy status to other drugs, medicaments and biological substances; Z88.0 Allergy status to penicillin; Z91.040 Latex allergy status
CPT/HCPCS: 36415; 80053; 83735; 85025; 96361; 96372; 96374; 99284; J1170; J7030

== ENCOUNTER 2024-06-07 06:44 | Inpatient (IN) | payer MEDICARE ==
[2024-06-07 07:34] LABS: BASOPHILS PERCENT AUTO 0.1 % (0.0-1.0); HEMATOCRIT 35.2 % (37.0-47.0); HEMOGLOBIN 10.4 gm/dl (12.0-16.0); IMMATURE GRAN ABSOLUTE AUTO 0.14 K/mm3 (0.00-0.05); IMMATURE GRAN PERCENT AUTO 1.4 % (0.0-0.4); LYMPHOCYTES ABSOLUTE AUTO 1.4 K/mm3 (1.0-4.8); LYMPHOCYTES PERCENT AUTO 13.3 % (24.0-44.0); MEAN CORPUSCULAR HEMOGLOBIN 23.6 pg (28.0-32.0); MEAN CORPUSCULAR HGB CONC 29.5 g/dl (32.0-36.0); MEAN CORPUSCULAR VOLUME 79.8 fl (83.0-99.0); MEAN PLATELET VOLUME 9.8 fl (9.4-12.3); MONOCYTES ABSOLUTE AUTO 0.2 K/mm3 (0.0-0.8); MONOCYTES PERCENT AUTO 2.2 % (0.0-8.0); NEUTROPHILS ABSOLUTE AUTO 8.5 K/mm3 (1.8-7.7); NRBC ABSOLUTE 0.05 (0.00-0.02); NRBC PERCENT 0.5 % (0.0-0.2); PLATELET COUNT,PLT 250 K/mm3 (150-400); RED BLOOD CELL COUNT 4.41 M/mm3 (4.10-5.30); WHITE BLOOD CELL COUNT,WBC 10.28 K/mm3 (3.9-11.3)
[2024-06-07 08:11] LABS: A/G RATIO 0.6 (1-2); ALANINE AMINOTRANSFERASE,ALT 53 U/L (14-59); ALBUMIN 2.7 g/dl (3.4-5.0); ALKALINE PHOSPHATASE 136 U/L (46-116); ANION GAP 11.1 (5-15); ASPARTATE AMNIOTRANSFERASE,AST 41 U/L (15-37); BILIRUBIN TOTAL 0.6 mg/dL (0.2-1.0); BLOOD UREA NITROGEN,BUN 60 mg/dL (7-18); BUN/CREATININE RATIO 27.3 (14-18); CALCIUM 10.1 mg/dL (8.5-10.1); CARBON DIOXIDE,CO2 37 mEq/L (21-32); CHLORIDE,CL 90 mEq/L (98-107); CREATININE 2.2 mg/dL (0.55-1.02); ESTIMATED GFR 24 mL/min (>60); GLUCOSE RANDOM 156 mg/dL (70-99); POTASSIUM,K 3.1 mEq/L (3.5-5.1); PROTEIN TOTAL,TP 7.5 g/dl (6.4-8.2); SODIUM,NA 135 mEq/L (136-145)
[2024-06-07 08:22] LABS: TROPONIN I HIGH SENSITIVITY 79 pg/mL (<=51)
[2024-06-07 08:25] LABS: APPEARANCE,URINE CLEAR (Clear); BILIRUBIN,URINE NEGATIVE (Negative); COLOR,URINE YELLOW (Yellow); GLUCOSE,URINE TRACE (Negative); KETONES,URINE NEGATIVE (Negative); LEUKOCYTE ESTERASE,URINE 1+ (Negative); NITRITE,URINE NEGATIVE (Negative); OCCULT BLOOD,URINE TRACE-LYSED (Negative); PROTEIN,URINE 1+ (Negative); UROBILINOGEN,URINE 0.2 (0.2-1.0)
[2024-06-07 08:36] LABS: BACTERIA,URINE MODERATE /hpf (FEW); EPITHELIAL CELLS,URINE 0-5 /hpf (0-5); MUCUS,URINE FEW /hpf (FEW); WBC,URINE 20-30 /hpf (0-5)
[2024-06-07] MEDS: Bumetanide 1 MG/4 ML MDV IVPUSH ONE (08:39)
[2024-06-07] MEDS: Verapamil 5 MG/2 ML SDV IVPUSH ONE (08:39)
[2024-06-07] MEDS: Sodium Chloride 0.9% 10 ML Syringe FLUSH PRN (08:39)
[2024-06-07] MEDS: Potassium Chloride 20 MEQ Tab.ER PO ONE (08:48)
[2024-06-07] MEDS: cefTRIAXone 1 GM in Sodium Chloride 0.9% 100 ML IV ONE (10:15)
[2024-06-07] MEDS ORDERED: Ondansetron 4 MG/2 ML SDV IV PRN (11:38)
[2024-06-07] MEDS ORDERED: Ondansetron 4 MG Tab.DIS PO PRN (11:38)
[2024-06-07] MEDS ORDERED: Polyethylene Glycol 3350 Powder 17 GM Packet PO PRN (11:38)
[2024-06-07] MEDS ORDERED: Cefepime 2 GM in Sodium Chloride 0.9% 50 ML IV SCH (12:30)
[2024-06-07 14:06] LABS: BASE EXCESS ARTERIAL 13.2 (-2-2.0); BICARBONATE,ARTERIAL 38.3 meq/L (22.0-26.0); O2 SATURATION ARTERIAL 89.4 % (96.0-97.0); PCO2 ARTERIAL 50.8 mmHg (35.0-45.0)
[2024-06-07] MEDS: Albuterol/Ipratropium 3.0-0.5 MG/3 ML Neb Soln NEB SCH (15:17)
[2024-06-07] MEDS: Sodium Chloride 0.9% 500 ML IV ONE (15:21)
[2024-06-07] MEDS: Azithromycin 500 MG in Sodium Chloride 0.9% 250 ML IV SCH ×2 (16:07→18:19)
[2024-06-07] MEDS: Cefepime 2 GM in Sodium Chloride 0.9% 50 ML IV SCH ×2 (16:08→18:20)
[2024-06-07] MEDS: guaiFENesin 600 MG Tab.ER PO SCH (16:55)
[2024-06-07] MEDS: Heparin Sodium 5,000 Units/ML Vial SUBCUT SCH (16:55)
[2024-06-07] MEDS: Docusate Sodium 100 MG Cap PO PRN (16:55)
[2024-06-07] MEDS: Insulin Lispro 100 Unit/ML 3 ML KwikPen SUBCUT SCH (17:54)
[2024-06-07] MEDS: Sodium Chloride 0.9% 1,000 ML IV SCH (18:40)
[2024-06-07] MEDS: oxyCODONE 5 MG Tab PO PRN (20:05)
[2024-06-07] MEDS: rOPINIRole 1 MG Tab PO SCH (20:06)
[2024-06-07] MEDS: atorvaSTATin 40 MG Tab PO SCH (20:06)
[2024-06-07] MEDS: Insulin Glargine,Human Rec. Analog 100 Units/ML 3 ML Pen SUBCUT SCH (20:08)
[2024-06-07] MEDS: Acetaminophen 325 MG Tab PO PRN (23:27)
[2024-06-08] MEDS: CLORAZEPATE 3.75 MG PO ONE (00:24)
[2024-06-08] MEDS: CLORAZEPATE 3.75 MG PO SCH ×2 (00:29→08:13)
[2024-06-08 05:00] LABS: BASOPHILS PERCENT AUTO 0.1 % (0.0-1.0); HEMATOCRIT 28.9 % (37.0-47.0); HEMOGLOBIN 8.5 gm/dl (12.0-16.0); IMMATURE GRAN ABSOLUTE AUTO 0.09 K/mm3 (0.00-0.05); IMMATURE GRAN PERCENT AUTO 1.2 % (0.0-0.4); LYMPHOCYTES ABSOLUTE AUTO 1.4 K/mm3 (1.0-4.8); LYMPHOCYTES PERCENT AUTO 18.3 % (24.0-44.0); MEAN CORPUSCULAR HEMOGLOBIN 23.8 pg (28.0-32.0); MEAN CORPUSCULAR HGB CONC 29.4 g/dl (32.0-36.0); MEAN PLATELET VOLUME 9.8 fl (9.4-12.3); MONOCYTES ABSOLUTE AUTO 0.1 K/mm3 (0.0-0.8); MONOCYTES PERCENT AUTO 1.8 % (0.0-8.0); NEUTROPHILS PERCENT AUTO 78.6 % (41.0-71.0); NRBC ABSOLUTE 0.02 (0.00-0.02); NRBC PERCENT 0.3 % (0.0-0.2); PLATELET COUNT,PLT 187 K/mm3 (150-400); RED BLOOD CELL COUNT 3.57 M/mm3 (4.10-5.30); WHITE BLOOD CELL COUNT,WBC 7.61 K/mm3 (3.9-11.3)
[2024-06-08 05:29] LABS: A/G RATIO 0.4 (1-2); ALANINE AMINOTRANSFERASE,ALT 33 U/L (14-59); ALBUMIN 1.5 g/dl (3.4-5.0); ALKALINE PHOSPHATASE 90 U/L (46-116); ANION GAP 7.6 (5-15); ASPARTATE AMNIOTRANSFERASE,AST 33 U/L (15-37); BILIRUBIN TOTAL 0.4 mg/dL (0.2-1.0); BLOOD UREA NITROGEN,BUN 47 mg/dL (7-18); BUN/CREATININE RATIO 26.1 (14-18); CARBON DIOXIDE,CO2 37 mEq/L (21-32); CHLORIDE,CL 100 mEq/L (98-107); CREATININE 1.8 mg/dL (0.55-1.02); EST CRCL DRUG DOSING (CG) 24.64 mL/min; ESTIMATED GFR 31 mL/min (>60); GLUCOSE RANDOM 96 mg/dL (70-99); MAGNESIUM 1.8 mg/dL (1.8-2.4); POTASSIUM,K 2.6 mEq/L (3.5-5.1); PROTEIN TOTAL,TP 5.3 g/dl (6.4-8.2); SODIUM,NA 142 mEq/L (136-145)
[2024-06-08 05:39] LABS: C-REACTIVE PROTEIN > 25.00 mg/dL (<0.30); CALCIUM 8.3 mg/dL (8.5-10.1); TROPONIN I HIGH SENSITIVITY 164 pg/mL (<=51)
[2024-06-08] MEDS: Magnesium Sulfate/Water 2 GM in Premix Bag 1 BAG IV ONE (08:03)
[2024-06-08] MEDS: Potassium Chloride 10 MEQ in Premix Bag 1 BAG IV SCH (08:03)
[2024-06-08] MEDS: Clopidogrel 75 MG Tab PO SCH (08:12)
[2024-06-08] MEDS: Potassium Chloride 20 MEQ Tab.ER PO ONE ×2 (08:12→21:48)
[2024-06-08] MEDS: Famotidine 10 MG Tab PO SCH (08:12)
[2024-06-08] MEDS: Saccharomyces Boulardii (Probiotic) 250 MG Cap PO SCH (08:12)
[2024-06-08] MEDS: Albumin 25% 12.5 GM in Premix Bag 1 BAG IV SCH (08:55)
[2024-06-08] MEDS ORDERED: Potassium Chloride 20 MEQ Tab.ER PO SCH (09:00)
[2024-06-08] MEDS: Furosemide 20 MG/2 ML VIAL IVPUSH ONE (09:20)
[2024-06-08] MEDS ORDERED: cefTRIAXone 2 GM in Sodium Chloride 0.9% 100 ML IV SCH (09:30)
[2024-06-08] MEDS: NS + KCl 20mEq/L 1,000 ML IV SCH (12:33)
[2024-06-09 06:16] LABS: BASOPHILS PERCENT AUTO 0.2 % (0.0-1.0); EOSINOPHILS PERCENT AUTO 0.3 % (0.0-6.0); HEMATOCRIT 31.9 % (37.0-47.0); IMMATURE GRAN ABSOLUTE AUTO 0.14 K/mm3 (0.00-0.05); IMMATURE GRAN PERCENT AUTO 1.6 % (0.0-0.4); LYMPHOCYTES PERCENT AUTO 22.5 % (24.0-44.0); MEAN CORPUSCULAR HEMOGLOBIN 23.3 pg (28.0-32.0); MEAN CORPUSCULAR HGB CONC 28.2 g/dl (32.0-36.0); MEAN CORPUSCULAR VOLUME 82.4 fl (83.0-99.0); MEAN PLATELET VOLUME 9.5 fl (9.4-12.3); MONOCYTES ABSOLUTE AUTO 0.2 K/mm3 (0.0-0.8); MONOCYTES PERCENT AUTO 2.5 % (0.0-8.0); NEUTROPHILS ABSOLUTE AUTO 6.5 K/mm3 (1.8-7.7); NEUTROPHILS PERCENT AUTO 72.9 % (41.0-71.0); NRBC ABSOLUTE 0.04 (0.00-0.02); NRBC PERCENT 0.4 % (0.0-0.2); PLATELET COUNT,PLT 211 K/mm3 (150-400); RED BLOOD CELL COUNT 3.87 M/mm3 (4.10-5.30); WHITE BLOOD CELL COUNT,WBC 8.96 K/mm3 (3.9-11.3)
[2024-06-09 07:05] LABS: A/G RATIO 0.5 (1-2); ALBUMIN 1.9 g/dl (3.4-5.0); ASPARTATE AMNIOTRANSFERASE,AST 46 U/L (15-37); BILIRUBIN TOTAL 0.5 mg/dL (0.2-1.0); CALCIUM 8.8 mg/dL (8.5-10.1); MAGNESIUM 2.4 mg/dL (1.8-2.4)
[2024-06-09 07:20] LABS: ALANINE AMINOTRANSFERASE,ALT 36 U/L (14-59); ALKALINE PHOSPHATASE 120 U/L (46-116); ANION GAP 10.4 (5-15); BLOOD UREA NITROGEN,BUN 34 mg/dL (7-18); BUN/CREATININE RATIO 22.7 (14-18); CARBON DIOXIDE,CO2 31 mEq/L (21-32); CHLORIDE,CL 102 mEq/L (98-107); CREATININE 1.5 mg/dL (0.55-1.02); EST CRCL DRUG DOSING (CG) 29.57 mL/min; ESTIMATED GFR 38 mL/min (>60); GLUCOSE RANDOM 106 mg/dL (70-99); SODIUM,NA 139 mEq/L (136-145)
[2024-06-09 07:25] LABS: C-REACTIVE PROTEIN > 25.00 mg/dL (<0.30)
[2024-06-09 07:27] LABS: POTASSIUM,K 4.4 mEq/L (3.5-5.1)
[2024-06-09 07:34] LABS: SLIDE REVIEW ABNORMAL SMEAR
[2024-06-09] MEDS: Furosemide 20 MG/2 ML VIAL IVPUSH ONE (10:00)
[2024-06-09] MEDS: LORazepam 2 MG/ML SDV ONE (10:00)
[2024-06-09] MEDS: LORazepam 2 MG/ML SDV IVPUSH ONE (10:09)
[2024-06-09 10:42] LABS: BASOPHILS PERCENT AUTO 0.2 % (0.0-1.0); EOSINOPHILS ABSOLUTE AUTO 0.1 K/mm3 (0.0-0.4); EOSINOPHILS PERCENT AUTO 0.4 % (0.0-6.0); HEMATOCRIT 32.5 % (37.0-47.0); HEMOGLOBIN 9.1 gm/dl (12.0-16.0); IMMATURE GRAN ABSOLUTE AUTO 0.17 K/mm3 (0.00-0.05); IMMATURE GRAN PERCENT AUTO 1.5 % (0.0-0.4); LYMPHOCYTES ABSOLUTE AUTO 3.4 K/mm3 (1.0-4.8); LYMPHOCYTES PERCENT AUTO 30.5 % (24.0-44.0); MEAN CORPUSCULAR HEMOGLOBIN 23.3 pg (28.0-32.0); MEAN CORPUSCULAR VOLUME 83.1 fl (83.0-99.0); MEAN PLATELET VOLUME 9.4 fl (9.4-12.3); MONOCYTES ABSOLUTE AUTO 0.3 K/mm3 (0.0-0.8); MONOCYTES PERCENT AUTO 2.5 % (0.0-8.0); NEUTROPHILS ABSOLUTE AUTO 7.3 K/mm3 (1.8-7.7); NEUTROPHILS PERCENT AUTO 64.9 % (41.0-71.0); NRBC ABSOLUTE 0.06 (0.00-0.02); NRBC PERCENT 0.5 % (0.0-0.2); PLATELET COUNT,PLT 215 K/mm3 (150-400); RED BLOOD CELL COUNT 3.91 M/mm3 (4.10-5.30); WHITE BLOOD CELL COUNT,WBC 11.23 K/mm3 (3.9-11.3)
[2024-06-09 11:03] LABS: A/G RATIO 0.5 (1-2); ANION GAP 13.8 (5-15); BILIRUBIN TOTAL 0.5 mg/dL (0.2-1.0); BUN/CREATININE RATIO 21.3 (14-18); CALCIUM 8.6 mg/dL (8.5-10.1); CREATININE 1.6 mg/dL (0.55-1.02); EST CRCL DRUG DOSING (CG) 27.72 mL/min; POTASSIUM,K 4.8 mEq/L (3.5-5.1); PROTEIN TOTAL,TP 6.2 g/dl (6.4-8.2)
[2024-06-09 11:43] LABS: SLIDE REVIEW ABNORMAL SMEAR
[2024-06-09] MEDS: methylPREDNISolone Sodium Succinate 125 MG/2 ML SDV IVPUSH ONE (12:33)
[2024-06-09] MEDS: Piperacillin/Tazobactam 4.5 GM in Sodium Chloride 0.9% 100 ML IV ONE (12:59)
[2024-06-09] MEDS: Piperacillin/Tazobactam 4.5 GM in Sodium Chloride 0.9% 100 ML IV SCH (17:04)
[2024-06-09] MEDS: ROFLUMILAST 500 MCG PO SCH (17:49)
[2024-06-09] MEDS: Glycerin Adult 2 GM Supp RECTAL ONE (18:27)
[2024-06-09] MEDS: Albumin 25% 12.5 GM in Premix Bag 1 BAG IV SCH (19:43)
[2024-06-09] MEDS: Albumin 25% 12.5 GM in Premix Bag 1 BAG IV ONE (19:59)
[2024-06-09] MEDS: LORazepam 2 MG/ML SDV IVPUSH PRN (20:28)
[2024-06-09] MEDS: DOBUTamine/Dextrose 5%-Water 250 MG/250 ML BAG IV SCH (21:14)
[2024-06-10 05:32] LABS: BASOPHILS PERCENT AUTO 0.3 % (0.0-1.0); HEMATOCRIT 25.8 % (37.0-47.0); IMMATURE GRAN ABSOLUTE AUTO 0.08 K/mm3 (0.00-0.05); LYMPHOCYTES ABSOLUTE AUTO 0.6 K/mm3 (1.0-4.8); LYMPHOCYTES PERCENT AUTO 15.9 % (24.0-44.0); MEAN CORPUSCULAR HEMOGLOBIN 23.4 pg (28.0-32.0); MEAN CORPUSCULAR HGB CONC 28.7 g/dl (32.0-36.0); MEAN CORPUSCULAR VOLUME 81.6 fl (83.0-99.0); MEAN PLATELET VOLUME 10.1 fl (9.4-12.3); MONOCYTES ABSOLUTE AUTO 0.1 K/mm3 (0.0-0.8); NEUTROPHILS ABSOLUTE AUTO 3.2 K/mm3 (1.8-7.7); NEUTROPHILS PERCENT AUTO 79.8 % (41.0-71.0); NRBC ABSOLUTE 0.02 (0.00-0.02); NRBC PERCENT 0.5 % (0.0-0.2); PLATELET COUNT,PLT 183 K/mm3 (150-400); RED BLOOD CELL COUNT 3.16 M/mm3 (4.10-5.30); WHITE BLOOD CELL COUNT,WBC 3.96 K/mm3 (3.9-11.3)
[2024-06-10 05:35] LABS: HEMOGLOBIN 7.4 gm/dl (12.0-16.0)
[2024-06-10 05:42] LABS: A/G RATIO 0.5 (1-2); ALBUMIN 1.9 g/dl (3.4-5.0); ANION GAP 14.3 (5-15); BILIRUBIN TOTAL 0.4 mg/dL (0.2-1.0); BUN/CREATININE RATIO 21.8 (14-18); C-REACTIVE PROTEIN 24.34 mg/dL (<0.30); CALCIUM 8.8 mg/dL (8.5-10.1); CREATININE 1.7 mg/dL (0.55-1.02); EST CRCL DRUG DOSING (CG) 26.09 mL/min; MAGNESIUM 2.4 mg/dL (1.8-2.4); POTASSIUM,K 4.3 mEq/L (3.5-5.1); PROTEIN TOTAL,TP 5.6 g/dl (6.4-8.2)
[2024-06-10 06:09] LABS: SLIDE REVIEW ABNORMAL SMEAR
[2024-06-10] MEDS: Lisinopril 2.5 MG Tab PO SCH (13:32)
[2024-06-10] MEDS: Albuterol 0.083% 2.5 MG/3 ML Neb Soln NEB PRN (14:00)
[2024-06-10] MEDS: Albumin 25% 12.5 GM in Premix Bag 1 BAG IV SCH (14:53)
[2024-06-10] MEDS: Sodium Chloride 0.9% 1,000 ML IV SCH (16:44)
[2024-06-10] MEDS: methylPREDNISolone Sodium Succinate 40 MG/1 ML SDV IVPUSH SCH (17:48)
[2024-06-10] MEDS: Budesonide 0.5 MG/2 ML Neb Susp ONE (21:19)
[2024-06-10] MEDS: Budesonide 0.5 MG/2 ML Neb Susp NEB SCH (21:20)
[2024-06-10] MEDS ORDERED: LORazepam 2 MG/ML SDV IM PRN (22:10)
[2024-06-10] MEDS ORDERED: Naloxone 0.4 MG/ML SDV IVPUSH PRN (22:10)
[2024-06-10] MEDS: Morphine 2 MG/ML SYRINGE IVPUSH ONE (22:22)
[2024-06-11] MEDS: Morphine 2 MG/ML SYRINGE IVPUSH PRN (00:53)
[2024-06-11] MEDS: LORazepam 2 MG/ML SDV IVPUSH PRN ×3 (00:59→09:54)
[2024-06-11 05:33] LABS: BASOPHILS PERCENT AUTO 0.2 % (0.0-1.0); HEMATOCRIT 26.1 % (37.0-47.0); IMMATURE GRAN ABSOLUTE AUTO 0.22 K/mm3 (0.00-0.05); IMMATURE GRAN PERCENT AUTO 4.1 % (0.0-0.4); LYMPHOCYTES ABSOLUTE AUTO 0.6 K/mm3 (1.0-4.8); LYMPHOCYTES PERCENT AUTO 10.2 % (24.0-44.0); MEAN CORPUSCULAR HEMOGLOBIN 23.1 pg (28.0-32.0); MEAN CORPUSCULAR HGB CONC 28.4 g/dl (32.0-36.0); MEAN CORPUSCULAR VOLUME 81.6 fl (83.0-99.0); MEAN PLATELET VOLUME 9.6 fl (9.4-12.3); MONOCYTES ABSOLUTE AUTO 0.1 K/mm3 (0.0-0.8); MONOCYTES PERCENT AUTO 2.6 % (0.0-8.0); NEUTROPHILS ABSOLUTE AUTO 4.5 K/mm3 (1.8-7.7); NEUTROPHILS PERCENT AUTO 82.9 % (41.0-71.0); NRBC ABSOLUTE 0.07 (0.00-0.02); NRBC PERCENT 1.3 % (0.0-0.2); PLATELET COUNT,PLT 194 K/mm3 (150-400)
[2024-06-11 05:36] LABS: HEMOGLOBIN 7.4 gm/dl (12.0-16.0)
[2024-06-11 05:56] LABS: A/G RATIO 0.5 (1-2); ANION GAP 10.9 (5-15); BILIRUBIN TOTAL 0.4 mg/dL (0.2-1.0); BUN/CREATININE RATIO 21.9 (14-18); C-REACTIVE PROTEIN 11.5 mg/dL (<0.30); CALCIUM 8.6 mg/dL (8.5-10.1); CREATININE 1.6 mg/dL (0.55-1.02); EST CRCL DRUG DOSING (CG) 27.72 mL/min; POTASSIUM,K 3.9 mEq/L (3.5-5.1); PROTEIN TOTAL,TP 5.8 g/dl (6.4-8.2)
[2024-06-11 06:08] LABS: SLIDE REVIEW ABNORMAL SMEAR
[2024-06-11] MEDS ORDERED: Albuterol/Ipratropium 3.0-0.5 MG/3 ML Neb Soln NEB SCH (08:00)
[2024-06-11] MEDS: methylPREDNISolone Sodium Succinate 125 MG/2 ML SDV IVPUSH SCH (08:03)
[2024-06-11] MEDS: fentaNYL 100 MCG/2 ML SDV IVPUSH ONE ×2 (08:47→11:48)
[2024-06-11] MEDS: Albuterol/Ipratropium 3.0-0.5 MG/3 ML Neb Soln NEB SCH (09:57)
[2024-06-11] MEDS: fentaNYL 100 MCG/2 ML SDV IVPUSH PRN ×2 (10:09→12:52)
[2024-06-11] MEDS: Scopalamine 1mg/3day Transdermal Patch TRDERM PRN (13:33)
== END 2024-06-11 17:47 | disposition expired | DRG 871 ==
LOC: JD.ED 06:44 → JD.MS 11:38 → JD.ICU 06-09 16:07
PROVIDERS: ADMIT Family Medicine; ATTEND Internal Medicine
PROC: 4A033R1 Measurement of Arterial Saturation, Peripheral, Percutaneous Approach (ICD-10-PCS; 2024-06-07)
PROC: 5A09357 Assistance with Respiratory Ventilation, Less than 24 Consecutive Hours, Continuous Positive Airway Pressure (ICD-10-PCS; 2024-06-07)
PROC: 3E03329 Introduction of Other Anti-infective into Peripheral Vein, Percutaneous Approach (ICD-10-PCS; principal; 2024-06-08)
PROC: 30233J1 Transfusion of Nonautologous Serum Albumin into Peripheral Vein, Percutaneous Approach (ICD-10-PCS; 2024-06-08)
PROC: 5A09357 Assistance with Respiratory Ventilation, Less than 24 Consecutive Hours, Continuous Positive Airway Pressure (ICD-10-PCS; 2024-06-08)
PROC: 30233J1 Transfusion of Nonautologous Serum Albumin into Peripheral Vein, Percutaneous Approach (ICD-10-PCS; 2024-06-09)
PROC: 5A09357 Assistance with Respiratory Ventilation, Less than 24 Consecutive Hours, Continuous Positive Airway Pressure (ICD-10-PCS; 2024-06-09)
PROC: 30233J1 Transfusion of Nonautologous Serum Albumin into Peripheral Vein, Percutaneous Approach (ICD-10-PCS; 2024-06-10)
PROC: 5A09357 Assistance with Respiratory Ventilation, Less than 24 Consecutive Hours, Continuous Positive Airway Pressure (ICD-10-PCS; 2024-06-10)
PROC: 5A09357 Assistance with Respiratory Ventilation, Less than 24 Consecutive Hours, Continuous Positive Airway Pressure (ICD-10-PCS; 2024-06-11)
DX: A41.81 Sepsis due to Enterococcus (principal); I50.23 Acute on chronic systolic (congestive) heart failure; J96.22 Acute and chronic respiratory failure with hypercapnia; I50.9 Heart failure, unspecified; J96.21 Acute and chronic respiratory failure with hypoxia; E11.9 Type 2 diabetes mellitus without complications; J18.9 Pneumonia, unspecified organism; R65.21 Severe sepsis with septic shock; J44.0 Chronic obstructive pulmonary disease with (acute) lower respiratory infection; J44.1 Chronic obstructive pulmonary disease with (acute) exacerbation; N39.0 Urinary tract infection, site not specified; N18.4 Chronic kidney disease, stage 4 (severe); N17.9 Acute kidney failure, unspecified; Z51.5 Encounter for palliative care; Z66 Do not resuscitate; E88.09 Other disorders of plasma-protein metabolism, not elsewhere classified; E11.22 Type 2 diabetes mellitus with diabetic chronic kidney disease; D50.0 Iron deficiency anemia secondary to blood loss (chronic); R79.89 Other specified abnormal findings of blood chemistry; E86.1 Hypovolemia; I34.0 Nonrheumatic mitral (valve) insufficiency; Z68.31 Body mass index [BMI] 31.0-31.9, adult; I48.91 Unspecified atrial fibrillation; F41.9 Anxiety disorder, unspecified; R91.1 Solitary pulmonary nodule; R31.9 Hematuria, unspecified; M54.9 Dorsalgia, unspecified; E66.9 Obesity, unspecified; G89.29 Other chronic pain; R57.0 Cardiogenic shock; E83.42 Hypomagnesemia; M79.604 Pain in right leg; M79.605 Pain in left leg; E87.6 Hypokalemia; E86.0 Dehydration; H35.30 Unspecified macular degeneration; E11.39 Type 2 diabetes mellitus with other diabetic ophthalmic complication; E78.00 Pure hypercholesterolemia, unspecified; Z91.040 Latex allergy status; Z88.0 Allergy status to penicillin; Z86.16 Personal history of COVID-19; Z88.5 Allergy status to narcotic agent; Z79.4 Long term (current) use of insulin; Z88.8 Allergy status to other drugs, medicaments and biological substances; Z88.1 Allergy status to other antibiotic agents; Z99.81 Dependence on supplemental oxygen; Z79.02 Long term (current) use of antithrombotics/antiplatelets; Z98.49 Cataract extraction status, unspecified eye; Z87.891 Personal history of nicotine dependence; Z90.710 Acquired absence of both cervix and uterus; Z87.442 Personal history of urinary calculi; Z86.010 Personal history of colon polyps; Z86.718 Personal history of other venous thrombosis and embolism; Z79.899 Other long term (current) drug therapy; Z79.52 Long term (current) use of systemic steroids
CPT/HCPCS: 36415; 71045; 71250; 80053; 81001; 83605; 83880; 84484 ×2; 85025; 86738; 87040 ×2; 87086; 87088; 87186; 87899; 93005; 96365; 96375; 99285; A9270; J0696; J3490 ×3; 36600; 82803; 82947; 83735; 84100; 85379; 86140; 93010; 94640; 94660; 94667; 94668; 94761; 97110-GP; 97161-GP; 99223; 99233; 99284; J0456; J0692; J1250; J1644; J1815; J1815-GY; J1940; J2060; J2270; J2543; J2919; J3010; J3475; J3480; J7030; J7050; J7620-GY; P9047